=== PATIENT | female | born 1965 | race American Indian/Alaskan Native ===

== ENCOUNTER 2017-07-04 17:06 | Emergency (ER) | payer BC, OTHER ==
[~2017-07-04] VITALS: Ht 167.6 cm; Wt 107.5 kg
[~2017-07-04 17:06] MED LIST: ACTOPLUS MET X1 EACH PO; ALBUTEROL SULF8.5 GM INH; ALLEGRA ALLERG180 MG PO; CELEBREX200 MG PO; CLINDAMYCIN HC300 MG PO; FLONASE2 SPRAY NS; JANUMET 50-1,01 EACH PO; LANTUS100 UNITS/ SUB-Q; LISINOPRIL10 MG PO; MONTELUKAST SOD10 MG PO; NORCO 5-325 TA1 EACH PO; NOVOLOG FL100 UNIT/1 SUB-Q; ONE DAILY COMP1 EACH PO; PATANOL5 ML OU; PROMETHAZINE HC25 M1 PO; VITAMIN D350000 UNIT PO; ZOFRAN ODT8 MG SL
[2017-07-04] MEDS ORDERED: LEVAQUIN500 MG PO (18:13)
[2017-07-04] MEDS ORDERED: TAMIFLU75 MG PO (18:13)
[2017-07-04] MEDS ORDERED: ZOFRAN ODT4 MG PO (18:15)
[2017-07-04] MEDS ORDERED: PHENERGAN25 MG PO (19:05)
== END 2017-07-04 19:28 | disposition home or self-care (01) ==
LOC: ED 17:06
DX: J11.1 Influenza due to unidentified influenza virus with other respiratory manifestations (principal); J03.80 Acute tonsillitis due to other specified organisms; B96.89 Other specified bacterial agents as the cause of diseases classified elsewhere; I10 Essential (primary) hypertension; E11.9 Type 2 diabetes mellitus without complications; Z88.2 Allergy status to sulfonamides; Z88.0 Allergy status to penicillin; Z88.5 Allergy status to narcotic agent; Z88.8 Allergy status to other drugs, medicaments and biological substances; Z79.899 Other long term (current) drug therapy; Z79.4 Long term (current) use of insulin
CPT/HCPCS: 96374; 96375; 99283; J0696; J1200; J1885; J2060; J2405; J7030

== ENCOUNTER 2018-05-07 18:33 | Emergency (ER) | payer BC, OTHER ==
[~2018-05-07 18:33] MED LIST changes: +CALCIUM 600-VI1 EAC1 PO; +LEVAQUIN500 MG PO; +PATANOL5 ML OD; +PHENERGAN25 MG PO; +SINGULAIR10 MG PO; +TAMIFLU75 MG PO; +ZOFRAN ODT4 MG PO
== END 2018-05-07 22:22 | disposition home or self-care (01) ==
LOC: ED 18:33
DX: G43.909 Migraine, unspecified, not intractable, without status migrainosus (principal); I10 Essential (primary) hypertension; E11.9 Type 2 diabetes mellitus without complications; Z88.2 Allergy status to sulfonamides; Z88.0 Allergy status to penicillin; Z88.1 Allergy status to other antibiotic agents; Z91.040 Latex allergy status; Z88.5 Allergy status to narcotic agent; Z88.8 Allergy status to other drugs, medicaments and biological substances; Z79.4 Long term (current) use of insulin; Z79.899 Other long term (current) drug therapy
CPT/HCPCS: 96361; 96374; 96375; 99284-25; J1100; J1200; J1885; J2550; J2765; J7030

== ENCOUNTER 2018-07-11 07:25 | Day surgery (SDC) | payer BC, OTHER ==
[~2018-07-11] VITALS: Ht 167.6 cm; Wt 110.2 kg
--- NOTE | ~2018-07-11 | OR ---
[facility] [address] [place], [place] [address] Draft DATE OF OPERATION: 07/11/2018 SURGEON: Isaias Spears MD PREOPERATIVE DIAGNOSIS: Trigger thumb, right, severe. POSTOPERATIVE DIAGNOSIS: Trigger thumb, right, severe. PROCEDURE PERFORMED: Release of A1 jordana, right thumb. ANESTHESIA: Nguyễn block with generous sedation. SPECIMENS AND COMPLICATIONS: There were no specimens or complications. WHAT WAS DONE: The patient was taken to the operating room. After anesthesia was induced and the patient sedated, the right upper extremity was positioned, prepped, and draped in a routine sterile fashion. A transverse incision was made in the MCP flexion crease directly over the palpable nodule in the FPL tendon. Skin was divided sharply. Subcutaneous tissue was bluntly spread. Small Bhaktinell Quang retractors were placed medially and laterally to protect the digital neurovascular bundles. We then released the A1 jordana with the tip of a #15 blade and the thumb immediately extended completely. We then again used a Ragnell to make sure we completely decompressed the FPL and there was a full and unimpeded excursion of the FPL. The wound was gently irrigated, closed with 4-0 nylon, and the sterile dressing applied. The patient was awakened and taken to the recovery room where she arrived in stable condition. Counts were correct and antibiotic protocols were followed. Isaias Spears MD WFB/MODL PATIENT NAME: GUS SHRESTHA OPERATIVE REPORT DATE OF : 69 REPORT #: [id number] PHYSICIAN: ISAIAS SPEARS MD PCP: VICTORINO SOSA REPORT IS CONFIDENTIAL AND NOT TO BE RELEASED WITHOUT AUTHORIZATION [address] [place], [place] [address] Draft /[id number] Copies: ~ PATIENT NAME: GUS SHRESTHA OPERATIVE REPORT DATE OF : 69 REPORT #: [id number] PHYSICIAN: ISAIAS SPEARS MD PCP: VICTORINO SOSA REPORT IS CONFIDENTIAL AND NOT TO BE RELEASED WITHOUT AUTHORIZATION
--- NOTE | 2018-07-11 11:15 | NUR ---
07/11/18 1115 Marianna Christiansen 1058-PATIENT ARRIVED TO PACU ON 10L MASK PLACED ON 6L NONAROUSABLE. SHALLOW BREATHING. RN MAINTAINING AIRWAY WITH HOLDING JAW. BP UPPER 70 'S IV FLUSHED AND LR OPEN INFUSING IV POSITIONAL. RIGHT HAND DRESSING CDI ELEVATED ON PILLOW.
--- NOTE | 2018-07-11 11:57 | NUR ---
ICED WATER GIVEN. SOUP AND SANDWICH ORDERED FROM DIETARY. CALL LIGHT W/IN REACH. FAMILY @ BS.
--- NOTE | 2018-07-11 12:56 | NUR ---
PT CONT TO BE NAUSEATED. PT USING ALCOHOL SWAB UNDER NOSE AND HOLDING EMESIS BAG ON ARRIVAL TO PT RM. PT PROVIDED GINGERALE TO HELP CALM HER STOMACH PER PT REQUEST. PT CONT TO SAT ABOVE 94% ON RA. DENIES ANY PAIN AND STATES THAT RIGHT HAND IS STILL NUMB. PT FAMILY AT BEDSIDE. CALL LIGHT WITHIN REACH.
--- NOTE | 2018-07-11 14:17 | NUR ---
1300: THIS RN CONSULTS WITH SHANTELLE BENNETT FOR ORAL MEDICATION FOR NAUSEA. SEE EMAR. PT CONT TO USE ALCOHOL SWAB AND SIP GINGERALE. 1330: PT STATES SHE NO LONGER FEELS NAUSEATED BUT FEELS TIRED. PT DRESSES SELF WITH HELP FROM DAUGHTER. DC INSTRUCTIONS GIVEN IN PRESENCE OF PT AND DAUGHTER. ALL QUESTIONS ANSWERED. PT DC'S VIA HOME FROM [facility] RM 12.
== END 2018-07-11 13:40 | disposition home or self-care (01) ==
LOC: DS 07:25 → OPS 07:25 → DS 07:30 → OPS 09:45
PROVIDERS: Orthopaedic Surgery
PROC: 0LN70ZZ Release Right Hand Tendon, Open Approach (ICD-10-PCS; principal; 2018-07-11 09:45)
DX: M65.311 Trigger thumb, right thumb (principal); E11.9 Type 2 diabetes mellitus without complications; I10 Essential (primary) hypertension; G89.29 Other chronic pain; J45.909 Unspecified asthma, uncomplicated; Z88.0 Allergy status to penicillin; Z88.2 Allergy status to sulfonamides; Z88.5 Allergy status to narcotic agent; Z79.899 Other long term (current) drug therapy; Z87.891 Personal history of nicotine dependence
CPT/HCPCS: 01810; J1100; J1885; J2250; J2405; J2704; J2765; J3010; J3370; J7060; J7120

== ENCOUNTER 2018-07-20 10:44 | Emergency (ER) | payer BC, OTHER ==
[~2018-07-20] VITALS: Ht 167.6 cm; Wt 108.6 kg
--- OUTSIDE RECORDS SUMMARY | ~2018-07-20 | XMS | Encounter Summary ---
Demographics + + + | Address | [address] | | | [place] [address] | + + + | Home Phone | | + + + | Preferred Language | Unknown | + + + | Marital Status | | + + + | Caodaism Affiliation | 1041 | + + + | Race | Unknown | + + + | Ethnic Group | Unknown | + + + Author + + + | Author | [facility] | | | and Esteban | + + + | Organization | [facility] | | | and [place] | + + + | Address | Unknown | + + + | Phone | Unavailable | + + + Support + + +---------+ + | Name | Relationship | Address | Phone | + + +---------+ + | CATHI SCHWARTZ | ECON | Unknown | | + + +---------+ + Care Team Providers + +------+ + | Care Beef Grinder Name | Role | Phone | + [...] | Changes | ORTHOPEDIC SURGERY | I, Gis Specialist | | | | | [address] | | | | | | [place] | | | | | | [address] | | | | | | [phone] | | | +--------+ + + + [...] + +---------+ + | Alcohol Use | Drinks/We | oz/Week | Comments | | | ek | | | + + +---------+ + | No | | | | + + +---------+ + + + + | Sex Assigned at | Date Recorded | | | | + + + | Not on file | | + + + as of this encounter Plan of Treatment Not on fileas of this encounter Visit Diagnoses Not on filein this encounter"
--- OUTSIDE RECORDS SUMMARY | ~2018-07-20 | XMS | Clinical Summary ---
Demographics + + + | Address | [address] | | | [place] [address] | + + + | Home Phone | | + + + | Preferred Language | Unknown | + + + | Marital Status | | + + + | Worship Affiliation | 1041 | + + + | Race | Unknown | + + + | Ethnic Group | Unknown | + + + Author + + + | Author | [facility] | | | and Esteban | + + + | Organization | [facility] | | | and [...] Team Providers + +------+ + | Care Knitting Tester Name | Role | Phone | + +------+ + | Alejandro Yen DO | PP | | + +------+ + Allergies + + + + + + | Active Allergy | Reactions | Severity | Noted | Comments | | | | | Date | | + + + + + + | Cephalexin | Other (See Comments) | | 10/16/19 | Reaction not | | | | | 18 | specified in outside | | | | | | medical records | + + + + + + | Ciprofloxacin | Other (See Comments) | | 10/16/19 | Reaction not | | | | | 18 | specified in outside | | | | | | medical records | + + + + + + | Codeine | Other (See Comments) | | 10/16/19 | Reaction not | | | | | 18 | specified in outside | | | | | | medical records | + + + + + + | Latex | Other (See Comments) | | 10/16/19 | Reaction not | | | | | 18 | specified in outside | | | | | | medical records | + + + + + + | Penicillins | Other (See Comments) | | 10/16/19 | Reaction not | | | | | 18 | specified in outside | | | | | | medical records | + + + + + + | Sulfa Antibiotics | Other (See Comments) | | 10/16/19 | Reaction not | | | | | 18 | specified in outside | | | | | | medical records | + + + + + + Current Medications + + +-------+---------+------+------+-------+ | Prescription | Sig. | Disp. | Refills | Star | End | Statu | | | | | | t | Date | s | | | | | | Date | | | + + +-------+---------+------+------+-------+ | albuterol (PROAIR | Inhale 2 puffs into | | | | | Activ | | HFA) 90 mcg/puff | the lungs every 6 | | | | | e | | inhaler | hours as needed for | | | | | | | | Shortness of Breath. | | | | | | + + +-------+---------+------+------+-------+ | celecoxib | Take 200 mg by mouth | | | | | Activ | | (CELEBREX) 200 mg | Twice daily as | | | | | e | | capsule | needed for Pain | | | | | | | | (Arthritis). | | | | | | + + +-------+---------+------+------+-------+ | ergocalciferol | Take 50,000 Units by | | | | | Activ | | (VITAMIN D-2) 50,000 | mouth Once a week. | | | | | e | | units capsule | | | | | | | + + +-------+---------+------+------+-------+ | fexofenadine | Take 180 mg by mouth | | | | | Activ | | (RDAHA) 180 mg | Daily as needed for | | | | | e | | tablet | Allergies. | | | | | | + + +-------+---------+------+------+-------+ | insulin glargine | Inject 75 Units | | | | | Activ | | (LANTUS SOLOSTAR) | under the skin | | | | | e | | 100 units/mL | nightly. | | | | | | | injection (pen) | | | | | | | + + +-------+---------+------+------+-------+ | insulin aspart | Inject 10 Units | | | | | Activ | | (NOVOLOG) 100 | under the skin 3 | | | | | e | | units/mL injection | times daily (before | | | | | | | | meals). | | | | | | + + +-------+---------+------+------+-------+ | lisinopril | Take 10 mg by mouth | | | | | Activ | | (PRINIVIL, ZESTRIL) | Daily. | | | | | e | | 10 mg tablet | | | | | | | + + +-------+---------+------+------+-------+ | metaxalone | Take 800 mg by mouth | | | | | Activ | | (SKELAXIN) 800 mg | 4 times daily. | | | | | e | | tablet | | | | | | | + + +-------+---------+------+------+-------+ | montelukast | Take 10 mg by mouth | | | | | Activ | | (SINGULAIR) 10 mg | nightly. | | | | | e | | tablet | | | | | | | + + +-------+---------+------+------+-------+ | olopatadine | Place 1 drop into | | | | | Activ | | (PATANOL) 0.1% | both eyes 2 times | | | | | e | | ophthalmic solution | daily. | | | | | | + + +-------+---------+------+------+-------+ | ULTICARE ALCOHOL | | | | 12/3 | | Activ | | SWABS 70 % PADS | | | | 1/20 | | e | | | | | | 18 | | | + + +-------+---------+------+------+-------+ | fluticasone | | | | 11/2 | | Activ | | (FLONASE) 50 | | | | 7/20 | | e | | mcg/nasal spray | | | | 18 | | | + + +-------+---------+------+------+-------+ | TRUE METRIX BLOOD | | | | 12/3 | | Activ | | GLUCOSE TEST strip | | | | 1/20 | | e | | | | | | 18 | | | + + +-------+---------+------+------+-------+ | TRUEPLUS LANCETS | | | | 11/0 | | Activ | | 28G MISC | | | | 5/20 | | e | | | | | | 18 | | | + + +-------+---------+------+------+-------+ | B-D ULTRAFINE III | | | | 12/3 | | Activ | | SHORT PEN 31G X 8 MM | | | | 1/20 | | e | | | | | | 18 | | | + + +-------+---------+------+------+-------+ | NOVOLOG FLEXPEN | | | | 12/3 | | Activ | | 100 UNIT/ML | | | | 1/20 | | e | | injection pen | | | | 18 | | | + + +-------+---------+------+------+-------+ Active Problems + + + | Problem | Noted Date | + + + | Right carpal tunnel syndrome | 06/26/2018 | + + + | Trigger thumb of right hand | 06/26/2018 | + + + | Left carpal tunnel syndrome | 06/26/2018 | + + + Encounters +--------+ + + + + | Date | Type | Specialty | Care Team | Description | +--------+ + + + + | 07/03/ | Telephone | | Melchor Gerardo | Surgery Appointment | | 2019 | | | MD Ar | | +--------+ + + + + | 06/27/ | Episode | | Sarah Carpenter | | | 2018 | Changes | | Mary Brown | | +--------+ + + + + | 06/26/ | Office | | Melchor Gerardo | Right carpal tunnel | | 2018 | Visit | | MD Ar | syndrome (Primary | | | | | | Dx); Trigger thumb | | | | | | of right hand; Left | | | | | | carpal tunnel | | | | | | syndrome | +--------+ + + + + | 06/26/ | Episode | | Sarah Carpenter | | | 2018 | Changes | | Kevin Tapper Operator | | +--------+ + + + + | 05/15/ | Procedure | | Moises Spivey, | Bilateral carpal | | 2019 | visit | | MD | tunnel syndrome | | | | | | (Primary Dx); | | | | | | Bilateral hand | | | | | | numbness; Weakness | | | | | | of both hands; | | | | | | History of diabetes | | | | | | mellitus, type II | +--------+ + + + + from Last 3 Months Immunizations + + + + | Name | Dates Previously Given | Next Due | + + + + | HEP A, 2 DOSE | 03/02/2014, 08/06/2013 | | | (ADULT) | | | + + + + | HEP B, 3 DOSE | 11/15/1994, 03/20/1994, 02/15/1994 | | | (ADULT) | | | + + + + | INFLUENAZ PF | 05/02/2012 | | | TRIVALENT | | | | INTRADERMAL | | | + + + + | INFLUENZA PF | 01/21/2018, 02/08/2017, 12/22/2015 | | | QUAD(PED/ADOL/ADULT) | | | | ,PSKT or VIAL | | | + + + + | INFLUENZA PF | 02/18/2015 | | | TRIVALENT(PED/ADOL/A | | | | DULT), PSKT | | | + + + + | INFLUENZA QUADR | 01/21/2014 | | | W/PRES | | | | (PED/ADOL/ADULT) | | | | MULTIDOSE | | | + + + + | PNEUMOCOCCAL | 05/02/2012 | | | CONJUGATE 13-VALENT | | | | (PCV13) | | | + + + + | TDAP, (ADOL/ADULT) | 11/01/2011 | | + + + + Family History + + +------+ + | Medical History | Relation | Name | Comments | + + +------+ + | Diabetes | Brother | | | + + +------+ + | High blood pressure | Brother | | | + + +------+ + | Diabetes | Father | | | + + +------+ + | Hypertension | Father | | | + + +------+ + | Diabetes | Mother | | | + + +------+ + | Diabetes | Paternal | | | | | Grandfath | | | | | er | | | + + +------+ + | High blood pressure | Paternal | | | | | Grandfath | | | | | er | | | + + +------+ + + +------+--------+ + | Relation | Name | Status | Comments | + +------+--------+ + | Brother | | | | + +------+--------+ + | Father | | | | + +------+--------+ + | Mother | | | | + +------+--------+ + | Paternal Grandfather | | | | + +------+--------+ + Social History + +-------+ +--------+------+ | [...] on file | | + + + Last Filed Vital Signs + + + + | Vital Sign | Reading | Time Taken | + + + + | Blood Pressure | 118/78 | 05/15/20181427 PST | + + + + | Pulse | 103 | 05/15/20188 PST | + + + + | Temperature | - | - | + + + + | Respiratory Rate | - | - | + + + + | Oxygen Saturation | - | - | + + + + | Inhaled Oxygen | - | - | | Concentration | | | + + + + | Weight | 106.1 kg (234 lb) | 06/26/2018837 PST | + + + + | Height | 168.5 cm (5' 6.34") | 06/26/2018837 PST | + + + + | Body Mass Index | 37.38 | 06/26/2018837 PST | + + + + Plan of Treatment + + + + + | Health Maintenance | Due Date | Last Done | Comments | + + + + + | Cervical Cancer | | | | | Screening (Pap) | 8 | | | + + + + + | BREAST CANCER | | | | | SCREENING (MAMM Q2 | 8 | | | | YEARS 50-74) | | | | + + + + + | Colorectal Cancer | | | | | Screening | 8 | | | | (Colonoscopy) | | | | + + + + + | Vaccine: Zoster (1 | | | | | of 2) | 8 | | | + + + + + | Vaccine: | | 11/01/2011 | | | Dtap/Tdap/Td (2 - | 2 | | | | Td) | | | | + + + + + | Vaccine: Influenza | Completed | 01/21/2018, 02/08/2017, | | | | | 12/22/2015, Additional history | | | | | exists | | + + + + + Results Not on filefrom Last 3 Months Insurance + +--------+ +--------+-------+---------+ | Payer | Benefi | Subscriber | Type | Phone | Address | | | t Plan | ID | | | | | | / | | | | | | | Group | | | | | + +--------+ +--------+-------+---------+ | BCBS | BCBS | [id number] | PPO | | | | | FEDERA | | | | | | | L FEP | | | | | + +--------+ +--------+-------+---------+ | [employer] | [employer] | [id number] | Indemn | | | | SERVICE | YELLOW | | ity | | | | | [place] | | | | | + +--------+ +--------+-------+---------+ + +--------+ +--------+ + + | Guarantor Name | Accoun | Relation to | Date | Phone | Billing Address | | | t Type | Patient | of | | | | | | | | | | + +--------+ +--------+ + + | YADIRA DEAN | Person | Self [birth year] Home: | [address] | | [place] | al/[place] | | 1966 | [phone] [place] | | | [place] | | | [phone] | | + +--------+ +--------+ + +
--- OUTSIDE RECORDS SUMMARY | ~2018-07-20 | XMS | Encounter Summary ---
Demographics + + + | Address | [address] | | | [place] [address] | + + + | Home Phone | | + + + | Preferred Language | Unknown | + + + | Marital Status | | + + + | Latter Day Affiliation | 1041 | + + + | Race | Unknown | + + + | Ethnic Group | Unknown | + + + Author + + + | Author | [facility] | | | and Esteban | + + + | Organization | [facility] | | | [...] Team Providers + +------+ + | Care Environmental Services Floor Tech Name | Role | Phone | + [...] | Changes | ORTHOPEDIC SURGERY | I, Flooring Grader | | | | | [address] | | | | | | [place] | | | | | | [address] | | | | | | [phone] | | | +--------+ + + + [...]
--- OUTSIDE RECORDS SUMMARY | ~2018-07-20 | XMS | Encounter Summary ---
Demographics + + + | Address | [address] | | | [place] [address] | + + + | Home Phone | | + + + | Preferred Language | Unknown | + + + | Marital Status | | + + + | Church Affiliation | 1041 | + + + | Race | Unknown | + + + | Ethnic Group | Unknown | + + + Author + + + | Author | [facility] | | | and Esteban | + + + | Organization | [facility] | | | and [...] Team Providers + +------+ + | Care Professor Of Fine Art Name | Role | Phone | + +------+ + | Alejandro Yen DO | PCP | | + +------+ + Reason for Referral Evaluate & Treat (Routine) +--------+ + + [...] | | | | | tunnel | [address] | [place] | | | | | syndrome | [place], | [place] | | | | | Bilateral | [place] [address] | [address] Phone: | | | | | hand | Phone: | [phone] | | | | | numbness | [phone] | Fax: | | | | | Weakness of | Fax: | [phone] | | | | | both hands | [phone] | | +--------+ + + + + + Reason for Visit + + + | Reason | Comments | + + + | Procedure | BUE NCS | + + + Evaluate & Treat (Routine) +--------+ + + + + + | Status | Reason | Specialty | Diagnoses / | Referred By | Referred To | | | | | Procedures | Contact | Contact | +--------+ + + + + + | Closed | Specialty | Physical | Diagnoses | Patric, | Moises Spivey | | | Services | Medicine and | Bilateral | Moises Suarez MD | Bola Suarez MD [address] | | | Required | Rehabilitatio | hand | [address] | | | | n | numbness | [address] | [place], | | | | | Weakness of | [place], | [place] [address] | | | | | both hands | [place] [address] | Phone: | | | | | Cervicalgia | Phone: | [phone] | | | | | Procedures | [phone] | Fax: | | | | | [place] MOTOR | Fax: | [phone] | | | | | &/SENS 1-2 | [phone] | | | | | | NRV CNDJ | | | | | | | PRECONF | | | | | | | [place] | | | | | | | NV MOTOR | | | | | | | &/SENS 3-4 | | | | | | | NRV CNDJ | | | | | | | PRECONF | | | | | | | [place] | | | | | | | NV MOTOR | | | | | | | &/SENS 7-8 | | | | | | | NRV CNDJ | | | | | | | PRECONF | | | | | | | [place] | | | | | | | NV MOTOR | | | | | | | &/SENS 13/> | | | | | | | NRV CNDJ | | | | | | | PRECONF | | | | | | | [place]TR[place] LIMB | | | | | | | NV NEEDLE | | | | | | | EMG EA | | | | | | | EXTREMITY | | | | | | | W/PARASPINL | | | | | | | AREA LIMITED | | | | | | | NV EMG, | | | | | | | NEEDLE, ONE | | | | | | | LIMB NV | | | | | | | EMG, NEEDLE, | | | | | | | TWO LIMBS | | | | | | | NV NEEDLE | | | | | | | EMG EA | | | | | | | EXTREMTY | | | | | | | W/PARASPINL | | | | | | | AREA | | | | | | | COMPLETE NV | | | | | | | OFFICE | | | | | | | OUTPATIENT | | | | | | | VISIT 25 | | | | | | | MINUTES | | | | | | | 02/19 | | | | | | | Pending-YH | | | | | | | response; | | | | | | | DOS 03/20/18 | | | +--------+ + + + + + Encounter Details +--------+ + + + + | Date | Type | Department | Care Team | Description | +--------+ + + + + | 05/15/ | Procedure | [facility] | Moises Spivey, | Bilateral carpal | | 2019 | visit | PHYSIATRY [address] | MD [address] | tunnel syndrome | | | | [place], | [place], [place] | (Primary Dx); | | | | [place] [address] | [address] | Bilateral hand | | | | [phone] | | numbness; Weakness | | | | | | of both hands; | | | | | | History of diabetes | | | | | | mellitus, type II | +--------+ + + + + Social History + +-------+ +--------+------+ | Tobacco Use | Types | Packs/Day | Years | Date | | | | | Used | | + +-------+ +--------+------+ | Never Smoker | | | | | + [...] + + + as of this encounter Last Filed Vital Signs + +---------+ + | Vital Sign | Reading | Time Taken | + +---------+ + | Blood Pressure | 118/78 | 05/15/2018 1428 PST | + +---------+ + | Pulse | 103 | 05/15/2018 1428 PST | + +---------+ + | Temperature | - | - | + +---------+ + | Respiratory Rate | - | - | + +---------+ + | Oxygen Saturation | - | - | + +---------+ + | Inhaled Oxygen | - | - | | Concentration | | | + +---------+ + | Weight | - | - | + +---------+ + | Height | - | - | + +---------+ + | Body Mass Index | - | - | + +---------+ + in this encounter Instructions Patient Instructions - Moises Spivey MD - 05/15/2018 1400 PSTContinue wearing carpal gian angela wrist splints at night, only at night, every night. Orthopedic surgery consult has been requested to consider carpal tunnel release surgery. I f you haven't heard from the surgeon's office within 2 weeks, please let us know. If you have persisting symptoms after recovering from carpal tunnel surgery, return to the clinic for further evaluation of your neck.in this encounter Progress Notes Moises Spivey MD - 05/15/2018 1400 PSTFormatting of this note may be different from the original. [facility] Physical Medicine & Rehabilitation [address] [place] [address], [address] [place] [address] Test Date: 05/15/2018 Patient Name: Tamara Serrano : 1965 Physician: Moises Spivey MD (Jr.) MR #: [id number] Sex: Female Referring Physician: Alejandro Yen DO HISTORY: Tamara Serrano presents to the clinic for bilateral upper extremity electrodiagnos tic study. She reports intermittent hand numbness that started more than one year ago. She has history of diabetes. She reports neck pain but is uncertain if there is any correlation between her neck and hand symptoms. She reports numbness is strongest in the first, second , and third fingers bilaterally. She reports that the numbness is stronger in the right finney d compared to the left. She reports that numbness can occur at night waking her from sleep, but also can occur when using her hands. Her symptoms occur multiple times each day. She reports that her hand numbness can be reduced by shaking her hands. She reports that episod es of intermittent hand numbness last minutes, but not hours. She reports bilateral hand we akness. She reports loss of program dir strength. She reports dropping objects with both hands. She denies having implanted electronic device, such as a pacemaker. She denies taking blood thinning medications such as Coumadin. PHYSICAL EXAM: Tamara Serrano is in no acute distress. She is alert and oriented to person, plac e, time and situation. Her speech is normal. Her cranial nerves are grossly intact. There is no focal muscle atrophy in either upper extremity. Spurling's test is negative bilatera lly. Tinel's test is positive over the median nerves at both wrists. Phalen's test is posi tive bilaterally. Sensory exam demonstrates decreased sensation over median distribution of both hands, strongest over the second digits bilaterally. Motor exam demonstrates 4/5 hand program dir on the right compared to 4+/5 on the left. Motor exam demonstrates 5/5 shoulder abduc tion, biceps, triceps, wrist dorsiflexion and finger abduction bilaterally. Lhermitte's sig n was negative. Allen's sign negative bilaterally. Nerve Conduction Studies Anti Sensory Summary Table Site NR Peak (ms) Norm Peak (ms) O-P Amp (V) Norm O-P Amp Site1 Site2 Delta-0 (ms) Dist (cm) Kraig (m/s) Norm Kraig (m/s) Left Median Anti Sensory (2nd Digit) Wrist 5.6 <3.6 15.0 >10 Wrist 2nd Digit 4.4 14.0 32 >39 Elbow 10.2 6.8 Elbow Wrist 4.4 23.5 53 >48 Right Median Anti Sensory (2nd Digit) Wrist 6.4 <3.6 1.4 >10 Wrist 2nd Digit 5.3 14.0 26 >39 Elbow NR Elbow Wrist 0.0 >48 Left Radial Anti Sensory (Base 1st Digit) Wrist 2.4 <2.7 21.5 Wrist Base 1st Digit 1.9 10.0 53 Right Radial Anti Sensory (Base 1st Digit) Wrist 2.4 <2.7 23.4 Wrist Base 1st Digit 1.6 10.0 63 Left Ulnar Anti Sensory (5th Digit) Wrist 3.3 <3.7 26.4 >15.0 Wrist 5th Digit 2.7 14.0 52 >38 B Elbow 6.7 16.2 B Elbow Wrist 2.8 18.0 64 >47 A Elbow 7.9 12.9 A Elbow B Elbow 1.5 10.0 67 Right Ulnar Anti Sensory (5th Digit) Wrist 3.1 <3.7 33.1 >15.0 Wrist 5th Digit 2.4 14.0 58 >38 B Elbow 6.3 19.8 B Elbow Wrist 3.2 19.0 59 >47 A Elbow 7.6 8.8 A Elbow B Elbow 1.2 10.0 83 Motor Summary Table Site NR Onset (ms) Norm Onset (ms) O-P Amp (mV) Norm O-P Amp Site1 Site2 Delta-0 (ms) Dist (cm) Kraig (m/s) Norm Kraig (m/s) Left Median Motor (Abd Poll Brev) Wrist 6.5 <4.2 6.9 >5 Elbow Wrist 4.1 22.0 54 >50 Elbow 10.6 6.3 Axilla Elbow 2.5 10.2 41 Axilla 13.1 6.5 Right Median Motor (Abd Poll Brev) Wrist 6.6 <4.2 6.3 >5 Elbow Wrist 4.7 23.0 49 >50 Elbow 11.3 6.1 Axilla Elbow 1.6 8.0 50 Axilla 12.9 4.4 Left Ulnar Motor (Abd Dig Minimi) Wrist 3.2 <4.2 6.7 >3 B Elbow Wrist 3.6 20.0 56 >53 B Elbow 6.8 4.7 A Elbow B Elbow 1.6 10.0 62 >53 A Elbow 8.4 4.7 Right Ulnar Motor (Abd Dig Minimi) Wrist 3.0 <4.2 7.6 >3 B Elbow Wrist 3.3 19.0 58 >53 B Elbow 6.3 6.7 A Elbow B Elbow 1.7 10.0 59 >53 A Elbow 8.0 6.0 Comparison Summary Table Site NR Peak (ms) Norm Peak (ms) P-T Amp (V) Site1 Site2 Delta-P (ms) Norm Delta (ms) Left Median/Radial Dig I Comparison (Digit 1 - 10cm) Median 4.9 <2.9 11.9 Median Radial 2.4 <0.4 Radial 2.5 <2.8 11.2 Right Median/Radial Dig I Comparison (Digit 1 - 10cm) Median 5.8 <2.9 0.5 Median Radial 3.3 <0.4 Radial 2.5 <2.8 3.7 Left Median/Ulnar Dig IV Comparison (Digit 4 - 14cm) Median Wr 5.1 <3.3 2.7 Median Wr Ulnar Wr 1.9 <0.4 Ulnar Wr 3.2 <3.3 18.2 Right Median/Ulnar Dig IV Comparison (Digit 4 - 14cm) Median Wr NR <3.3 Median Wr Ulnar Wr <0.4 Ulnar Wr 2.9 <3.3 14.3 Left Median/Ulnar Palm Comparison (Wrist - 8cm) Median Palm 4.2 <2.5 17.6 Median Palm Ulnar Palm 2.1 <0.3 Ulnar Palm 2.1 <2.5 15.9 Right Median/Ulnar Palm Comparison (Wrist - 8cm) Median Palm 6.5 <2.5 8.9 Median Palm Ulnar Palm 4.4 <0.3 Ulnar Palm 2.1 <2.5 34.0 F Wave Studies NR F-Lat (ms) Lat Norm (ms) L-R F-Lat (ms) L-R Lat Norm Left Median (Mrkrs) (Abd Poll Brev) 31.74 <33 0.41 <2.2 Right Median (Mrkrs) (Abd Poll Brev) 32.15 <33 0.41 <2.2 Left Ulnar (Mrkrs) (Abd Dig Min) NR <36 <2.5 Right Ulnar (Mrkrs) (Abd Dig Min) 28.47 <36 <2.5 Nerve Conduction Studies Motor Left/Right Comparison Site L Lat (ms) R Lat (ms) L-R Lat (ms) L Amp (mV) R Amp (mV) L-R Amp (%) Site1 Site2 L Ve l (m/s) R Kraig (m/s) L-R Kraig (m/s) Median Motor (Abd Poll Brev) Wrist 6.5 6.6 0.1 6.9 6.3 8.7 Elbow Wrist 54 49 5 Elbow 10.6 11.3 0.7 6.3 6.1 3.2 Axilla Elbow 41 50 9 Axilla 13.1 12.9 0.2 6.5 4.4 32.3 Ulnar Motor (Abd Dig Minimi) Wrist 3.2 3.0 0.2 6.7 7.6 11.8 B Elbow Wrist 56 58 2 B Elbow 6.8 6.3 0.5 4.7 6.7 29.9 A Elbow B Elbow 62 59 3 A Elbow 8.4 8.0 0.4 4.7 6.0 21.7 Anti Sensory Left/Right Comparison Site L Lat (ms) R Lat (ms) L-R Lat (ms) L Amp (V) R Amp (V) L-R Amp (%) Site1 Site2 L Kraig (m/s) R Kraig (m/s) L-R Kraig (m/s) Median Anti Sensory (2nd Digit) Wrist 5.6 6.4 0.8 15.0 1.4 90.7 Wrist 2nd Digit 32 26 6 Elbow 10.2 6.8 Elbow Wrist 53 Radial Anti Sensory (Base 1st Digit) Wrist 2.4 2.4 0.0 21.5 23.4 8.1 Wrist Base 1st Digit 53 63 10 Ulnar Anti Sensory (5th Digit) Wrist 3.3 3.1 0.2 26.4 33.1 20.2 Wrist 5th Digit 52 58 6 B Elbow 6.7 6.3 0.4 16.2 19.8 18.2 B Elbow Wrist 64 59 5 A Elbow 7.9 7.6 0.3 12.9 8.8 31.8 A Elbow B Elbow 67 83 16 Comparison Left/Right Comparison Site L Lat (ms) R Lat (ms) L-R Lat (ms) L Amp (V) R Amp (V) L-R Amp (%) Median/Radial Dig I Comparison (Digit 1 - 10cm) Median 4.9 5.8 0.9 11.9 0.5 95.8 Radial 2.5 2.5 0.0 11.2 3.7 67.0 Median/Ulnar Dig IV Comparison (Digit 4 - 14cm) Median Wr 5.1 2.7 Ulnar Wr 3.2 2.9 0.3 18.2 14.3 21.4 Median/Ulnar Palm Comparison (Wrist - 8cm) Median Palm 4.2 6.5 2.3 17.6 8.9 49.4 Ulnar Palm 2.1 2.1 0.0 15.9 34.0 53.2 NCV FINDINGS: Evaluation of the Left median motor nerve showed prolonged distal onset laten cy. The Right median motor nerve showed prolonged distal onset latency and decreased conduc tion velocity (Elbow-Wrist). The Left median sensory nerve showed prolonged distal peak lat ency and decreased conduction velocity (Wrist-2nd Digit). The Right median sensory nerve sh owed no response (Elbow), prolonged distal peak latency, reduced amplitude, and decreased co nduction velocity (Wrist-2nd Digit). The Left median/radial (dig I) comparison and the Righ t median/radial (dig I) comparison nerves showed prolonged distal peak latency (Median) and abnormal peak latency difference (Median-Radial). The Left median/ulnar (dig IV) comparison nerve showed prolonged distal peak latency (Median Wr) and abnormal peak latency difference (Median Wr-Ulnar Wr). The Right median/ulnar (dig IV) comparison nerve showed no response (Median Wr). The Left median/ulnar (palm) comparison and the Right median/ulnar (palm) comp arison nerves showed prolonged distal peak latency (Median Palm) and abnormal peak latency d ifference (Median Palm-Ulnar Palm). All remaining nerves (as indicated in the following tab les) were within normal limits. F Wave studies indicate that the Left ulnar F wave has no response. All remaining F Wave l atencies were within normal limits. IMPRESSION: This is an abnormal study. Nerve conduction study of both upper extremities was abnormal. Nerve conduction study demo nstrates moderate median neuropathy at both wrists consistent with bilateral carpal tunnel s yndrome, worse on the right. There was no evidence of ulnar neuropathy in either upper extr emity. There was no evidence of radial neuropathy in either upper extremity. DISCUSSION: Tamara Serrano demonstrated normal tolerance to nerve conduction study of both upp er extremities. She was able to complete the entire study. As noted above, this study demonstrates moderate median neuropathy at both wrists consisten t with bilateral carpal tunnel syndrome. This study demonstrates adequate explanation for h er symptoms. Sequential bilateral carpal tunnel release is recommended. Orthopedic surgery consult has been requested to consider carpal tunnel release surgery. Today we reviewed the natural pro gression of carpal tunnel syndrome. She was instructed to wear carpal tunnel wrist splints at night, only at night, every night, never during the day. We discussed how to make sure t hey fit properly. We discussed that it is unlikely that splints would fix her problem, but it might help slow the progression of disease, while she waits for surgical release. We dis cussed the risk of permanent nerve damage if carpal tunnel syndrome remains untreated. We d iscussed the risk of permament pain, numbness, weakness, and disability if carpal tunnel pro gresses to "severe." Today we reviewed the association between carpal tunnel syndrome and d benjamin. Today's study cannot diagnose, nor rule out cervical radiculopathy. Electrodiagnostic stud y cannot diagnose, nor rule out cervical spinal stenosis. Tamara Serrano was instr ucted that if she has persisting symptoms after having carpal tunnel surgery and recovery, s he should return to my clinic for further evaluation. If she has persisting or worsening sy mptoms in the future, we may consider bilateral upper extremity EMG. We may also consider c ervical MRI to evaluate for neural foraminal narrowing and/or cervical spinal stenosis. Thank you for allowing me to be involved in the care of your patient. If you have any ques tions regarding the care of your patient please don't hesitate to call. Approximately 25 minutes was spent face to face with Tamara Serrano, beyond the co mpletion of the electrodiagnostic study above, over half of which was spent formulating and discussing their medical treatment plan. Thank you for allowing me to be involved in the care of your patient. If you have any quest ions or comments, please do not hesitate to call. Moises Spivey MD (.) Physical Medicine and Rehabilitation Cc: Alejandro Yen, DO in this encounter Plan of Treatment + +--------+ + + | Name | Priori | Associated Diagnoses | Order Schedule | | | ty | | | + +--------+ + + | * [facility] Orthopedic Surgery - | Routin | Bilateral carpal | Ordered: 05/15/2018 | | AMB Referral | e | tunnel syndrome | | | | | Bilateral hand | | | | | numbness Weakness | | | | | of both hands | | + +--------+ + + as of this encounter Visit Diagnoses + + | Diagnosis | + + | Bilateral carpal tunnel syndrome - Primary | + + | Carpal tunnel syndrome | + + | Bilateral hand numbness | + + | Disturbance of skin sensation | + + | Weakness of both hands | + + | History of diabetes mellitus, type II | + + | Personal history of other endocrine, metabolic, and immunity disorders | + +
--- OUTSIDE RECORDS SUMMARY | ~2018-07-20 | XMS | Encounter Summary ---
Demographics + + + | Address | [address] | | | [place] [address] | + + + | Home Phone | | + + + | Preferred Language | Unknown | + + + | Marital Status | | + + + | Anabaptist Affiliation | 1041 | + + + | Race | Unknown | + + + | Ethnic Group | Unknown | + + + Author + + + | Author | [facility] | | | and Esteban | + + + | Organization | [facility] | | | and [...] Team Providers + +------+ + | Care Bale Stacker Name | Role | Phone | + +------+ + | Alejandro Yen DO | PCP | | + +------+ + Encounter Details +--------+ + + + + | Date | Type | Department | Care Team | Description | +--------+ + + + + | 06/27/ | Episode | [facility] [place] | Sarah Carpenter | | | 2019 | Changes | ORTHOPEDIC SURGERY | I, Hvac Specialist | | | | | [address] | | | | | | [place] | | | | | | [address] | | | | | | [phone] | | | +--------+ + + + [...]
--- OUTSIDE RECORDS SUMMARY | ~2018-07-20 | XMS | Encounter Summary ---
Demographics + + + | Address | [address] | | | [place] [address] | + + + | Home Phone | | + + + | Preferred Language | Unknown | + + + | Marital Status | | + + + | Taoist Affiliation | 1041 | + + + | Race | Unknown | + + + | Ethnic Group | Unknown | + + + Author + + + | Author | [facility] | | | and Esteban | + + + | Organization | [facility] | | | [...] Team Providers + +------+ + | Care Inspector Structural Bonding Name | Role | Phone | + [...] | | | | | tunnel | [address] | [place] | | | | | syndrome | [place], | [place] | | | | | Bilateral | [place] [address] | [address] Phone: | | | | | hand | Phone: | [phone] | | | | | numbness | [phone] | Fax: | | | | | Weakness of | Fax: | [phone] | | | | | both hands | [phone] | | +--------+ + + + + + Encounter Details +--------+---------+ + + + | Date | Type | Department | Care Team | Description | +--------+---------+ + + + | 06/26/ | Office | [facility] | Melchor Gerardo | Right carpal tunnel | | 2019 | Visit | ORTHOPEDIC SURGERY | [address] | syndrome (Primary | | | | [address] | [address] [place] | Dx); Trigger thumb | | | | [place] | [place] [address] | of right hand; Left | | | | [address] | [phone] | carpal tunnel | | | | [phone] | | syndrome | +--------+---------+ + + [...] Blood Pressure | - | - | + + + + | Pulse | - | - | + + + + | Temperature [...] | 168.5 cm (5' 6.34") | 06/26/2018 08 PST | + + + + | Body Mass Index | 37.38 | 06/26/201838 PST | + + + + in this encounter Instructions Patient Instructions - Melchor Gerardo MD - 06/26/2018 0920 PST Carpal Tunnel Syndrome Carpal tunnel syndrome [...] not bent back when typing. You may [id number] pain medicine to treat pain and inflammation, [...] becomes swollen or weak Date Last Reviewed: 08/21/201719996080-6594 [employer]. [address] [place] [address]. All righ ts reserved. This information is not intended as a substitute for professional medical care. Always follow your healthcare professional's instructions. in this encounter Progress Notes Melchor Gerardo MD - 06/26/2018 0830 PSTFormatting of this note may be different from the original. [facility] HISTORY AND PHYSICAL EXAMINATION Pt. Name/Age/: Tamara Serrano 52 y.o. 1965 Primary Care Physician: Alejandro Yen Chief Complaint/Reason for Visit: New Patient and Carpal Tunnel (Bilateral hand numbness) History of Present Illness: The patient is a pleasant 52 y.o. female who presents with a lateral carpal tunnel syndrome . She reports that the right hand bothers her more than the left. She has had symptoms for at least a couple of years. She has intermittent numbness and tingling which largely affec ts the thumb index and middle fingers on both hands. She also reports that she has a trigge r thumb on the right hand. She has been having issues with that for the last year. She's b een having some difficulty with wind energy mechanic with regards to both hands. Rest and ice help with her pain. She is tried Celebrex. She has not done any physical therapy. She has been using b races with some relief. Her pain is a 5 out of 10 at baseline and a 7 out of 10 at its wors t. Her pain has been getting better over time. She is unable to do all her normal daily ac tivities. She quit smoking 30 years ago. Past [...] BLOOD GLUCOSE TEST strip TRUEPLUS LANCETS 28G [facility] ALCOHOL SWABS 70 % PADS No current facility-administered medications for this visit. Family History: Family History Problem Relation Age of Onset Diabetes Mother Diabetes Father Hypertension Father Diabetes Brother High blood pressure Brother Diabetes Paternal Grandfather High blood pressure Paternal Grandfather Social History: Social History Social History Marital status: Spouse name: CATHI SCHWARTZ Number of children: 4 Years of education: [...] how injection would probably have about a 30% chance success considering that she has a hist ory of diabetes. We discussed surgical treatment briefly. She is uninterested in treating that moment and wishes to deal with the carpal tunnel first. Follow-up: Return preoperative visit. with no x-ray Portions of this report were transcribed using voice recognition software. Every effort wa s made to ensure accuracy; however, inadvertent computerized bankruptcy legal assistant errors may be pre sent. I appreciate the opportunity to help with the management of this patient. Melchor Gerardo MDin this encounter Plan of Treatment Not on fileas of this encounter Visit Diagnoses + + | Diagnosis | + + | Right carpal tunnel syndrome - Primary | + + | Carpal tunnel syndrome | + + | Trigger thumb of right hand | + + | Trigger finger (acquired) | + + | Left carpal tunnel syndrome | + + | Carpal tunnel syndrome | + +
--- OUTSIDE RECORDS SUMMARY | ~2018-07-20 | XMS | Encounter Summary ---
Demographics + + + | Address | [address] | | | [place] [address] | + + + | Home Phone | | + + + | Preferred Language | Unknown | + + + | Marital Status | | + + + | Taoism Affiliation | 1041 | + + + | Race | Unknown | + + + | Ethnic Group | Unknown | + + + Author + + + | Author | [facility] | | | and Esteban | + + + | Organization | [facility] | | [...] Team Providers + +------+ + | Care Machine Setter Name | Role | Phone | + +------+ + | Alejandro Yen DO | PCP | | + +------+ + Reason for Visit + + + | Reason | Comments | + + + | Surgery Appointment | | + + + Encounter Details +--------+ + + + + | Date | Type | Department | Care Team | Description | +--------+ + + + + | 07/03/ | Telephone | [facility] | AkinMelchor hayden | Surgery Appointment | | 2019 | | ORTHOPEDIC SURGERY | [address] | | | | | [address] [facility] | [facility] | | | | | [place] | [place] [address] | | | | | [address] | [phone] | | | | | [phone] | | | +--------+ + + + [...]
--- OUTSIDE RECORDS SUMMARY | ~2018-07-20 | XMS | Encounter Summary ---
Demographics + + + | Address | [address] | | | [place] [address] | + + + | Home Phone | | + + + | Preferred Language | Unknown | + + + | Marital Status | | + + + | Lutheran Affiliation | 1041 | + + + [...] Team Providers + +------+ + | Care Outdoor Advertising Leasing Agent Name | Role | Phone | + [...] + + | 07/03/ | Telephone | [facility] | AkinMelchor hayden | Surgery Appointment | | 2019 | | ORTHOPEDIC SURGERY | [address] | | | | | [address] [facility] | [facility] | | | | | [place] | [place] [address] | | | | | [address] | [phone] | | | | | [phone] | | | +--------+ + + + [...]
--- OUTSIDE RECORDS SUMMARY | ~2018-07-20 | XMS | Encounter Summary ---
Demographics + + + | Address | [address] | | | [place] [address] | + + + | Home Phone | | + + + | Preferred Language | Unknown | + + + | Marital Status | | + + + | Evangelical Affiliation | 1041 | + + + | Race | Unknown | + + + | Ethnic Group | Unknown | + + + Author + + + | Author | [facility] | | | and Esteban | + + + | Organization | [facility] | | | [...] Team Providers + +------+ + | Care House Coordinator Name | Role | Phone | + [...] | | | | | tunnel | [address] | [address] [place] | | | | | syndrome | [place], | [place], [place] | | | | | Bilateral | [place] [address] | [address] Phone: | | | | | hand | Phone: | [phone] | | | | | numbness | [phone] | Fax: | | | | | Weakness of | Fax: | [phone] | | | | | both hands | [phone] | | +--------+ + + + + [...] | hand | [address] | | | | n | numbness | [address] | [place], | | | | | Weakness of | [place], | [place] [address] | | | | | both hands | [place] [address] | Phone: | | | | | Cervicalgia | Phone: | [phone] | | | | | Procedures | [phone] | Fax: | | | | | [place] MOTOR | Fax: | [phone] | | | | | &/SENS 1-2 | [phone] | | | | | | NRV CNDJ | | | | | | | PRECONF | | | | | | | [place] | | | | | | | [place] MOTOR | | | | | | | &/SENS 3-4 | | | | | | | NRV CNDJ | | | | | | | PRECONF | | | | | | | [place] | | | | | | | MN MOTOR | | | | | | | &/SENS 7-8 | | | | | | | NRV CNDJ | | | | | | | PRECONF | | | | | | | [place] | | | | | | | MN MOTOR | | | | | | | &/SENS 13/> | | | | | | | NRV CNDJ | | | | | | | PRECONF | | | | | | | [place] LIMB | | | | | | | MN NEEDLE | | | | | | | EMG EA | | | | | | | EXTREMITY | | | | | | | W/PARASPINL | | | | | | | AREA LIMITED | | | | | | | MN EMG, | | | | | | | NEEDLE, ONE | | | | | | | LIMB [place] | | | | | | | EMG, NEEDLE, | | | | | | | TWO LIMBS | | | | | | | MN NEEDLE | | | | | | | EMG EA | | | | | | | EXTREMTY | | | | | | | W/PARASPINL | | | | | | | AREA | | | | | | | COMPLETE [place] | | | | | | | [...] PHYSIATRY [address] | MD [address] | tunnel syndrome | | | | [address] [place], | [place], [place] | (Primary Dx); | | | | [place] [address] | [address] | Bilateral hand | | | | [phone] | | numbness; Weakness | | | [...] note may be different from the original. [facility] Physical Medicine & Rehabilitation [address] [place] [address], [address] [place] [address] Test Date: 05/15/2018 Patient Name: Tamara Serrano : 1965 Physician: Moises Spivey MD (Jr.) MR #: [id number] Sex: Female Referring Physician: Alejandro Yen DO [...] hand we akness. 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 She reports dropping objects with both [...] digits bilaterally. 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
--- OUTSIDE RECORDS SUMMARY | ~2018-07-20 | XMS | Encounter Summary ---
Demographics + + + | Address | [address] | | | [place] [address] | + + + | Home Phone | | + + + | Preferred Language | Unknown | + + + | Marital Status | | + + + | Taoist Affiliation | 1041 | + + + | Race | Unknown | + + + | Ethnic Group | Unknown | + + + Author + + + | Author | [facility] | | | and Esteban | + + + | Organization | [facility] | | | [...] Team Providers + +------+ + | Care Title One Kindergarten Teacher Name | Role | Phone | + [...] | Changes | ORTHOPEDIC SURGERY | I, Potato Chip Processing Supervisor | | | | | [address] | | | | | | [place] | | | | | | [address] | | | | | | [phone] | | | +--------+ + + + [...]
--- OUTSIDE RECORDS SUMMARY | ~2018-07-20 | XMS | Clinical Summary ---
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
--- OUTSIDE RECORDS SUMMARY | ~2018-07-20 | XMS | Encounter Summary ---
Demographics + + + | Address | [address] | | | [place] [address] | + + + | Home Phone | | + + + | Preferred Language | Unknown | + + + | Marital Status | | + + + | Jain Affiliation | 1041 | + + + | Race | Unknown | + + + | Ethnic Group | Unknown | + + + Author + + + | Author | [facility] | | | and Esteban | + + + | Organization | [facility] | | | [...] Team Providers + +------+ + | Care Tank Inspector Name | Role | Phone | [...] | | | | | tunnel | [address] | [place] | | | | | syndrome | [place], | [place], [place] | | | | | Bilateral | [place] [address] | [address] Phone: | | | | | hand | Phone: | [phone] | | | | | numbness | [phone] | Fax: | | | | | Weakness of | Fax: | [phone] | | | | | both hands | [phone] | | +--------+ + + + + + Encounter Details +--------+---------+ + + + | Date | Type | Department | Care Team | Description | +--------+---------+ + + + | 06/26/ | Office | [facility] | Melchor Gerardo | Right carpal tunnel | | 2019 | Visit | ORTHOPEDIC SURGERY | MD [address] | syndrome (Primary | | | | [address] | [address] [place] | Dx); Trigger thumb | | | | [place] | [place] [address] | of right hand; Left | | | | [address] | [phone] | carpal tunnel | | | | [phone] | | syndrome | +--------+---------+ + + [...] not bent back when typing. You may cpkacxb-qlq-tljnteh pain medicine to treat pain and inflammation, [...] becomes swollen or weak Date Last Reviewed: 08/21/201719994918-6692 [employer]. [address] [place] [address]. All righ ts reserved. This information is not intended as a substitute for professional medical care. Always follow your healthcare professional's instructions. in this encounter Progress Notes eMlchor Gerardo MD - 06/26/2018 0830 PSTFormatting of this note may be different from the original. 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 Rest and [...] BLOOD GLUCOSE TEST strip TRUEPLUS LANCETS 28G [facility] SWABS 70 % [...] No imaging Electrodiagnostic testing performed by Dr. Spivye on 05/15/2018 reviewed. She has moderate c [...] made to ensure accuracy; however, inadvertent computerized sprinkler truck driver errors may be pre sent. I appreciate [...]
[2018-07-20] MEDS ORDERED: CLEOCIN HCL300 MG PO (11:01)
== END 2018-07-20 11:10 | disposition home or self-care (01) ==
LOC: ED 10:44
DX: T81.41XA Infection following a procedure, superficial incisional surgical site, initial encounter (principal); G43.909 Migraine, unspecified, not intractable, without status migrainosus; I10 Essential (primary) hypertension; E11.9 Type 2 diabetes mellitus without complications; Z87.891 Personal history of nicotine dependence; Z91.040 Latex allergy status; Z88.2 Allergy status to sulfonamides; Z88.0 Allergy status to penicillin; Z88.5 Allergy status to narcotic agent; Z79.899 Other long term (current) drug therapy; Z79.4 Long term (current) use of insulin
CPT/HCPCS: 99282

== ENCOUNTER 2019-01-10 17:18 | Emergency (ER) | payer BC, OTHER ==
[~2019-01-10] VITALS: Ht 167.6 cm; Wt 103.0 kg
[~2019-01-10 17:18] MED LIST changes: +CLEOCIN HCL300 MG PO; +FLONASE ALLERG9.9 ML NAS; +SYMBICORT 16010.2 GM INH; +ZITHROMAX250 MG PO
== END 2019-01-10 19:23 | disposition home or self-care (01) ==
LOC: ED 17:18
DX: J06.9 Acute upper respiratory infection, unspecified (principal); I10 Essential (primary) hypertension; E11.9 Type 2 diabetes mellitus without complications; Z88.0 Allergy status to penicillin; Z88.1 Allergy status to other antibiotic agents; Z88.2 Allergy status to sulfonamides; Z91.040 Latex allergy status; Z88.8 Allergy status to other drugs, medicaments and biological substances; Z79.899 Other long term (current) drug therapy
CPT/HCPCS: 99283

== ENCOUNTER 2019-02-25 06:35 | Day surgery (SDC) | payer BC, OTHER ==
[~2019-02-25] VITALS: Ht 167.6 cm; Wt 105.2 kg
[~2019-02-25 06:35] MED LIST changes: +LANTUS SOL100 UNIT/1 SUB-Q
--- NOTE | 2019-02-25 08:16 | NUR ---
02/25/19 0816 Nima,Juana 0808 PT ARRIVED TO PACU ON 3L VIA NC RESP EVEN AND UNLABORED. PT LAYING ON LEFT SIDE. 0809 PT WOKE TO TACTILE STIMULI AND IS REORIENTED TO PACU, PT TRUNED TO BACK AND VSS. PT BACK TO SLEEP. CBG 263.
--- NOTE | 2019-02-25 08:56 | OR ---
[facility] [address], [place] [address] Signed DATE OF OPERATION: 02/25/2019 SURGEON: Osvaldo Hurtado MD PREOPERATIVE DIAGNOSES: 1. Rectal lymphoma (2018). 2. External hemorrhoids. 3. Sigmoid diverticulum x1. POSTOPERATIVE DIAGNOSES: 1. Mild juarez-diverticulosis. 2. Minimal internal and external hemorrhoids. 3. A 3 mm rectal polyp at 10 cm next to previous polypectomy site. PROCEDURE: Colonoscopy with hot biopsy. ESTIMATED BLOOD LOSS: None. INDICATIONS: Gus is a 53-year-old, obese, diabetic female, who had a tiny rectal lymphoma removed in November 2017 during her endoscopy. She underwent a full evaluation with her medical oncologist. Everything came out negative including a CT scan of the chest, abdomen and pelvis. Her bone marrow biopsy was also negative. Consequently, she did not need any chemotherapy. She was asked to return by her medical oncologist this year for a followup colonoscopy. We know she has minimal external hemorrhoids and a single diverticulum had been seen in the sigmoid colon. She tells me there is no family history of colon cancer or polyps. In the meantime, she has no lower GI complaints. I reviewed with Gus a colonoscopy in detail. She understands the nature of the test along with the risks including, but not limited to gas, bloating, crampy abdominal pain, bleeding, perforation requiring surgery, and missed diagnosis. She also understands the need for IV conscious sedation. She expressed understanding and wished to proceed. PROCEDURE NOTE: Gus was taken into our endoscopy suite and placed in the left lateral decubitus position. She was given Versed and fentanyl for sedation. A digital rectal exam was performed and she has very minimal external hemorrhoids. She has good sphincter tone. No masses. The adult colonoscope was introduced and advanced all around into the cecum under direct visualization of camera without difficulty. It took a little extra Electronically Signed By: OSVALDO HURTADO MD 02/25/19 0856 PATIENT NAME: GUS SHRESTHA OPERATIVE REPORT DATE OF : [birth year] REPORT #: [id number] PHYSICIAN: OSVALDO HURTADO MD PCP: VICTORINO SOSA REPORT IS CONFIDENTIAL AND NOT TO BE RELEASED WITHOUT AUTHORIZATION [facility] [address], [place] [address] Signed sedation and some abdominal compression in order to advance the scope around hepatic flexure and down the right colon. Her prep was quite good. The scope was slowly withdrawn. We took pictures throughout for photodocumentation. She did have a few diverticula in the right and left colon. They were wdypqhn-qi-qhfeszya in size, few in number, and scattered about. We found just a very tiny 3 mm polypoid lesion a couple of centimeters to the side of the previous polypectomy site at about 10 cm in the rectum. It was easily removed with the help of cold biopsy forceps. It was bleeding just a little, so we went ahead and cauterized that with our hot biopsy forceps. Upon retroflexion of the scope, she has very minimal internal hemorrhoid tissue. After this, the gas was suctioned out and the colonoscope removed. Gus tolerated the procedure quite well. RECOMMENDATIONS: I will see Gus back in my office in 7 to 14 days to review her results. I suspect this small biopsy will be fine. In that case, she might consider return in 3 years for repeat colonoscopy. Osvaldo Hurtado MD ALB/MODL /[id number] cc: RAFAELA Fishman MD Robert C Quackenbush, MD Copies: OSVALDO HURTADO MD, ROBERT C MD ~ Electronically Signed By: OSVALDO HURTADO MD 02/25/19 0856 PATIENT NAME: GUS SHRESTHA OPERATIVE REPORT DATE OF : [birth year] REPORT #: [id number] PHYSICIAN: OSVALDO HURTADO MD PCP: VICTORINO SOSA REPORT IS CONFIDENTIAL AND NOT TO BE RELEASED WITHOUT AUTHORIZATION
--- NOTE | 2019-03-03 16:36 | PATH ---
[facility] [address] [facility] [place], [place] [address] Signed SPECIMEN(S): A COLON POLYP AT 10 CM SPECIMEN SOURCE: A. COLON POLYP AT 10 CM CLINICAL HISTORY: Rectal lymphoma, external hemorrhoids, sigmoid diverticulosis. MICROSCOPIC DESCRIPTION: Histologic sections colonic mucosa with lamina propria and submucosa, patchy lymphoid infiltrate, composed predominantly of small lymphoid cells admixed with a few histiocytes, and plasma cells. No dysplasia or carcinoma is identified. Immunohistochemical stains performed on block A1 with adequate controls: - CD3: Stains a few scattered and focally clustered small T-cells. - CD5: Stains a few scattered and focally clustered small T-cells. - CD20: Highlights aggregated B-cells. Additional immunohistochemical stains performed on block A1 with adequate controls: - PAX5: Highlights aggregated B-cells. - CD138: Stains a few plasma cells. In situ hybridization performed on block A1 with adequate controls: - [place]: Positive in subset plasma cells, with a polytypic pattern. - Lambda: Positive in subset plasma cells. LY:glc FINAL PATHOLOGIC DIAGNOSIS: Polyp, colon at 25 cm, polypectomy: - Hyperplastic polyp. - No evidence of lymphoma, dysplasia or carcinoma. - See Comment. 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 The current colon polyp at 25 cm shows colonic mucosa with hyperplastic change and lamina propria and submucosa with patchy lymphoid infiltrate. Additional immunohistochemical stains reveal mixed T-cells, B-cells and polytypic plasma cells. There is no evidence of lymphoma identified. Clinical correlation is recommended. LY:glc:C2NR PATIENT NAME: GUS SHRESTHA PATHOLOGY DATE OF : [birth year] REPORT #: [id number] PHYSICIAN: INESSA SAAVEDRA PCP: VICTORINO SOSA REPORT IS CONFIDENTIAL AND NOT TO BE RELEASED WITHOUT AUTHORIZATION [facility] [address] [place], [place] [address] Signed GROSS DESCRIPTION: The specimen, labeled "KM, colon polyp at 10 cm," is received in formalin and consists of three tipton soft tissue fragment(s) that measure 0.2-0.3 cm in greatest dimension. The specimen is entirely submitted in cassette (A1). FB (under the direct supervision of a pathologist) The Gross Description was prepared using a voice recognition system. The report was reviewed for accuracy; however, sound-alike word errors, addition and/or deletions may occur. If there is any question about this report, please contact Client Services. ADDITIONAL NOTES: Immunohistochemical and/or in situ hybridization studies were performed on this case with the appropriate positive controls that react as expected. This test was developed and its performance characteristics determined by [facility]. It has not been cleared or approved by the U.S. Food and Drug Administration. The FDA has determined that such clearance or approval is not necessary. This test is used for clinical purposes. It should not be regarded as investigational or for research. [facility] is certified under the Clinical Laboratory Improvement Amendments of 1988 (CLIA) as qualified to perform high complexity clinical laboratory testing. PERFORMING LABORATORY: The technical component was performed by [facility], [address] [place] [id number] (Field Marketing Team Leader: Ella Kaufman MD; CLIA# [id number]). Professional interpretation was performed by [facility], [facility], [address] [place] [address] (Field Marketing Team Leader: Sebas Haddad M.D.; IA#: [id number]). Diagnostician: Alex Montoya MD Pathologist Electronically Signed 03/03/2019 Copies: ~ PATIENT NAME: GUS SHRESTHA PATHOLOGY DATE OF : 69 REPORT #: [id number] PHYSICIAN: INESSA PATHOLOGY PCP: VICTORINO SOSA REPORT IS CONFIDENTIAL AND NOT TO BE RELEASED WITHOUT AUTHORIZATION
== END 2019-02-25 08:50 | disposition home or self-care (01) ==
LOC: DS 06:35 → OPS 06:35 → DS 06:45 → OPS 06:45
PROVIDERS: Colon & Rectal Surgery
PROC: 0DBP8ZZ Excision of Rectum, Via Natural or Artificial Opening Endoscopic (ICD-10-PCS; principal; 2019-02-25 06:45)
DX: K62.1 Rectal polyp (principal); K64.8 Other hemorrhoids; K64.4 Residual hemorrhoidal skin tags; K57.30 Diverticulosis of large intestine without perforation or abscess without bleeding; I10 Essential (primary) hypertension; J45.909 Unspecified asthma, uncomplicated; E78.5 Hyperlipidemia, unspecified; E55.9 Vitamin D deficiency, unspecified; E11.9 Type 2 diabetes mellitus without complications; E66.9 Obesity, unspecified; M17.0 Bilateral primary osteoarthritis of knee; M19.011 Primary osteoarthritis, right shoulder; M19.012 Primary osteoarthritis, left shoulder; M19.041 Primary osteoarthritis, right hand; M19.042 Primary osteoarthritis, left hand; Z85.72 Personal history of non-Hodgkin lymphomas; Z88.1 Allergy status to other antibiotic agents; Z98.890 Other specified postprocedural states; Z88.5 Allergy status to narcotic agent; Z91.040 Latex allergy status; Z88.2 Allergy status to sulfonamides; Z88.0 Allergy status to penicillin; Z79.4 Long term (current) use of insulin; Z79.899 Other long term (current) drug therapy
CPT/HCPCS: 99153; G0500; J2250; J3010; J7121

== ENCOUNTER → 2019-10-15 | Emergency (ER) | payer BC, OTHER ==
[~2019-10-15] VITALS: Ht 167.6 cm; Wt 105.2 kg
--- OUTSIDE RECORDS SUMMARY | ~2019-10-15 | XMS | Encounter Summary ---
Demographics + + + | Address | [address] | | | [place] [address] | + + + | Home Phone | | + + + | Preferred Language | Unknown | + + + | Marital Status | | + + + | Sikhism Affiliation | 1041 | + + + | Race | Unknown | + + + | Ethnic Group | Unknown | + + + Author + + + | Author | [facility] | | | and [place]eb[place] | + + + | Organization | [facility] | | | and [place] | + + + | Address | Unknown | + + + | Phone | Unavailable | + + + Support + + +---------+ + | Name | Relationship | Address | Phone | + + +---------+ + | Cathi Omalley | [place] | Unknown | | + + +---------+ + Care Team Providers + +------+ + | Care Conventional Mortgage Underwriter Name | Role | Phone | + +------+ + | Alejandro Yen DO | PCP | | + +------+ + Reason for Visit + + + | Reason | Comments | + + + | New Patient | | + + + | Carpal Tunnel | Bilateral hand numbness | + + + Evaluate & Treat (Routine) +--------+ + + + + + | Status | Reason | Specialty | Diagnoses / | Referred By | Referred To | | | | | Procedures | Contact | Contact | +--------+ + + + + + | Closed | Specialty | Orthopedic | Diagnoses | Patric, | Foreign, | | | Services | Surgery | Bilateral | Moises Suarez MD | Gavino Staley MD | | | Required | | carpal | [address] | | | | | tunnel | [address] | [address] [place] | | | | | syndrome | [place], | [place], [place] | | | | | Bilateral | [place] [address] | [address] Phone: | | | | | hand | Phone: | [phone] | | | | | numbness | [phone] | Fax: | | | | | Weakness of | Fax: | [phone] | | | | | both hands | [phone] | | +--------+ + + + + + Encounter Details +--------+---------+ + + + | Date | Type | Department | Care Team | Description | +--------+---------+ + + + | 06/26/ | Office | [facility] | Melchor eGrardo | Right carpal tunnel | | 2019 | Visit | ORTHOPEDIC SURGERY | [address] | syndrome (Primary | | | | [address] [place] | [place] | Dx); Trigger thumb | | | | [address] | [place] [address] | of right hand; Left | | | | [id number] | [phone] | carpal tunnel | | | | [phone] | | syndrome | +--------+---------+ + + + Social History + +-------+ +--------+------+ | Tobacco Use | Types | Packs/Day | Years | Date | | | | | Used | | + +-------+ +--------+------+ | Former Smoker | | | | | + +-------+ +--------+------+ + +---+---+---+ | Smokeless Tobacco: | | | | | Never Used | | | | + +---+---+---+ + + +---------+ + | Alcohol Use | Drinks/Week | oz/Week | Comments | + + +---------+ + | No | | | | + + +---------+ + + + + | Sex Assigned at | Date Recorded | | | | + + + | Not on file | | + + + documented as of this encounter Last Filed Vital Signs + + + + + | Vital Sign | Reading | Time Taken | Comments | + + + + + | Blood Pressure | - | - | | + + + + + | Pulse | - | - | | + + + + + | Temperature | - | - | | + + + + + | Respiratory Rate | - | - | | + + + + + | Oxygen Saturation | - | - | | + + + + + | Inhaled Oxygen | - | - | | | Concentration | | | | + + + + + | Weight | 106.1 kg (234 lb) | 06/26/2018 8:38 AM | | | | | PST | | + + + + + | Height | 168.5 cm (5' 6.34") | 06/26/2018 8:38 AM | | | | | PST | | + + + + + | Body Mass Index | 37.38 | 06/26/2018 8:38 AM | | | | | PST | | + + + + + documented in this encounter Patient Instructions Patient Instructions Melchor Gerardo MD - 06/26/2018 9:20 AM PST Carpal Tunnel Syndrome Carpal tunnel syndrome is a painful condition of the wrist and arm. It is caused by pressur e on the median nerve. The median nerve is one of the nerves that give feeling and movement to the hand. It passes through a tunnel in the wrist called the carpal tunnel. This tunnel i s made up of bones and ligaments. Narrowing of this tunnel or swelling of the tissues inside the tunnel puts pressure on the median nerve. This causes numbness, pins and needles, or el ectric shooting pains in your hand and forearm. Often the pain is worse at night and may wak e you when you are asleep. Carpal tunnel syndrome may occur during and with use of control pills. It i s more common in workers who must often bend their wrists. It is also common in people who w ork with power tools that cause strong vibrations. Home care Rest the painful wrist. Avoid repeated bending of the wrist back and forth. This puts pr essure on the median nerve. Avoid using power tools with strong vibrations. If you were given a splint, wear it at night while you sleep. You may also wear it durin g the day for comfort. Move your fingers and wrists often to prevent stiffness. Elevate your arms on pillows when you lie down. Try using the unaffected hand more. Try not to hold your wrists in a bent, downward position. Sometimes changes in the work place may ease symptoms. If you type most of the day, it m ay help to change the position of your keyboard or add a wrist support. Your wrist should be in a neutral position and not bent back when typing. You may [id number]-irllidv pain medicine to treat pain and inflammation, unless anoth er medicine was prescribed.Anti-inflammatory pain medicines, such as ibuprofen or naproxen may be more effective than acetaminophen, which treats pain, but not inflammation.If you have chronic liver or kidney disease or ever had a stomach ulcer or gastrointestinal bleedin g, talk with your healthcare provider before using these medicines. Opioid pain medicine will only give temporary relief and does not treat the problem. If pain continues, you may need a shot of a steroid drug into your wrist. If the above methods fail, you may need surgery. This will open the carpal tunnel and re lease the pressure on the trapped nerve. Follow-up care Follow up with your healthcare provider, oras advised. If X-rays were taken,you will be notified of any new findings that may affect your care. When to seek medical advice Call your healthcare provider right away if any of these occur: Pain not improving with the above treatment Fingers or hand become cold, blue, numb, or tingly Your whole arm becomes swollen or weak Date Last Reviewed: 08/21/[id number] [employer]. [address] [place] [address], [place] [address]. All righ ts reserved. This information is not intended as a substitute for professional medical care. Always follow your healthcare professional's instructions. documented in this encounter Progress Notes Melchor Gerardo MD - 06/26/2018 8:30 AM PSTFormatting of this note might be dif ferent from the original. [facility] HISTORY AND PHYSICAL EXAMINATION Pt. Name/Age/: Tamara Serrano 52 y.o. 1965 Primary Care Physician: Alejandro Yen Chief Complaint/Reason for Visit: New Patient and Carpal Tunnel (Bilateral hand numbness) History of Present Illness: The patient is a pleasant 52 y.o. female who presents with a diagnosis of bilateral carpal tunnel syndrome. She reports that the right hand bothers her more than the left hand does. She has had symptoms for at least a couple of years in both hands. She has intermittent nu mbness and tingling which largely affects the thumb, index, and middle fingers on both hands . She also reports that she has a trigger thumb on the right hand. She has been having iss ues with that for the last year. 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 Rest and ice help with her pain. She has tried Celebrex. She has not done any physical therapy. She has been using braces with some relief. Her pain is a 5 out of 10 at baselin e and a 7 out of 10 at its worst. Her pain has been getting better over time. She is unabl e to do all her normal daily activities. She quit smoking 30 years ago. Past Medical History: Past Medical History: Diagnosis Date Abnormal liver function Acute bacterial sinusitis Acute dermatitis Acute lymphangitis Right periauricular Acute maxillary sinusitis Allergic rhinitis Asthma Benign essential hypertension Bronchitis Chronic thoracic back pain Contracture of muscle of left foot Intrinsic Hammer toe of left foot Hemorrhoids Ingrowing nail with infection Juvenile osteochondritis Right leg/foot Low back pain Lower urinary tract infectious disease Menopausal symptom Mixed hyperlipidemia Neuropathy Obesity Onychomycosis Osteoarthritis of left knee Rectal hemorrhage Scapulalgia Steatosis of liver Tenosynovitis Tension type headache Type 2 diabetes mellitus (HCC) Vitamin D deficiency Past Surgical History: Procedure Laterality Date KNEE SURGERY Bilateral Allergies: Allergies Allergen Reactions Cephalexin Other (See Comments) Reaction not specified in outside medical records Ciprofloxacin Other (See Comments) Reaction not specified in outside medical records Codeine Other (See Comments) Reaction not specified in outside medical records Latex Other (See Comments) Reaction not specified in outside medical records Penicillins Other (See Comments) Reaction not specified in outside medical records Sulfa Antibiotics Other (See Comments) Reaction not specified in outside medical records Current Medications: Current Outpatient Prescriptions Medication Sig Dispense Refill albuterol (PROAIR HFA) 90 mcg/puff inhaler Inhale 2 puffs into the lungs every 6 hours as needed for Shortness of Breath. B-D ULTRAFINE III SHORT PEN 31G X 8 MM celecoxib (CELEBREX) 200 mg capsule Take 200 mg by mouth Twice daily as needed for Asif n (Arthritis). ergocalciferol (VITAMIN D-2) 50,000 units capsule Take 50,000 Units by mouth Once a wee k. fexofenadine (RADHA) 180 mg tablet Take 180 mg by mouth Daily as needed for Allergies . fluticasone (FLONASE) 50 mcg/nasal spray insulin aspart (NOVOLOG) 100 units/mL injection Inject 10 Units under the skin 3 times daily (before meals). insulin glargine (LANTUS SOLOSTAR) 100 units/mL injection (pen) Inject 75 Units under t he skin nightly. lisinopril (PRINIVIL, ZESTRIL) 10 mg tablet Take 10 mg by mouth Daily. metaxalone (SKELAXIN) 800 mg tablet Take 800 mg by mouth 4 times daily. montelukast (SINGULAIR) 10 mg tablet Take 10 mg by mouth nightly. NOVOLOG FLEXPEN 100 UNIT/ML injection pen olopatadine (PATANOL) 0.1% ophthalmic solution Place 1 drop into both eyes 2 times trent y. TRUE METRIX BLOOD GLUCOSE TEST strip TRUEPLUS LANCETS 28G MIS ULTICARE ALCOHOL SWABS 70 % PADS No current facility-administered medications for this visit. Family History: Family History Problem Relation Age of Onset Diabetes Mother Diabetes Father Hypertension Father Diabetes Brother High blood pressure Brother Diabetes Paternal Grandfather High blood pressure Paternal Grandfather Social History: Social History Social History Marital status: Spouse name: CATHI OMALLEY Number of children: 4 Years of education: N/A Occupational History [employer] Social History Main Topics Smoking status: Former Smoker Smokeless tobacco: Never Used Alcohol use No Drug use: No Sexual activity: Yes Other Topics Concern Not on file Social History Narrative No narrative on file Review of Systems All of these are negative unless otherwise marked Eyes: [] Double vision [x] Glasses/contacts [] Failing vision Respiratory: [] Asthma/Wheezing [] Pneumonia [] Night sweats [] Shortness of breath [] Chronic cough [] Coughing up blood [x] Exposure to tuberculosis Cardiovascular: [] Heart Problems [x] Hypertension [] Heart murmur [] Palpitations [] Rheumatic fever [] Phlebitis [] Chest pain [] Ankle swelling [] Leg cramps [] Racin g heart [] Skipping beats [] Blood clots Urinary Tract: [] Painful urination [] Kidney Stones [x] Any urine leakage [] Weak urine stream [] Night urination [] Urine infections [] Bedwetting [] Blood in urine Ear/Nose/Throat: [] Frequent Colds [] Sinus Disease [] Nose obstruction [] Sneezing Spells [] Change in taste [] Artificial teeth [] Ears ringing [] Ear pain [] Hearing loss [] Teeth problems [] Hoarseness [] Neck swelling [] Sore throat [] Congestion [] Nosebleeds [x] Nasal allergies Gastrointestinal: [] Abdominal pain [] Heartburn [] Blood from rectum [] Colitis [x] Gallbladder problems [] Troub le swallowing [] Bloated stomach [] Change in stools [] Vomiting blood [] Nausea [x] Hemorrhoids [] Jaundice [] Hepatitis [] Diarrhea [] Constipation [] Diverticulitis Musculoskeletal: [] Physical handicaps [x] Back or shoulder pain []Rheumatoid disease [] Osteoarthritis [x] Joint pain [] Joint swelling []Gout [x] Leg cramps at night Skin: [] Skin rashes [] Itching/Burning [] Skin bruises easil y [] Artificial tanning [] Skin cancer [] Hair loss [] Changes in moles Psychiatric: [] Depression [] Suicidal thoughts [] Sleep pattern changes [] Appetite changes [] Recent counseling [] Nervousness/anxiety [] Physical violence [] Marital problems Neurological: [] Headaches [] Seizures [] Stroke/TIA [] Faintness [] Tremors [] Numbness [] Dizziness [] Changes in handwriting [] Memory loss [] Shooting pains Endocrine: [] Thyroid [x] Diabetes Systemic: []Weight loss/gain (over 10 lbs) []Fever/chills [x]Fatigue [] Sleeping Difficulties [] Speech change [] Voice change Admission Weight: Weight: 106.1 kg (234 lb) BMI: Body mass index is 37.38 kg/m. Physical Examination: Ht 1.685 m (5' 6.34") | Wt 106.1 kg (234 lb) | BMI 37.38 kg/m General: Alert, oriented, no acute distress HEENT: Normocephalic, atraumatic Cardiovascular: Regular rate and rhythm Respiratory: Breathing normally at a regular rate Ortho Exam bilateral upper extremity exam: Radial pulse 2+. Sensation intact to light touch in the first dorsal webspace, and the pads of the small and index fingers. Able to flex and extend the thumb at the interphalangeal alana int, make an "ok" sign, adduct and abduct the fingers, and oppose the thumb to the small fin beny. Negative Tinel's at the carpal tunnel both sides. Positive Alyx's compression test on marina th sides. Tender over the right thumb A1 jordana. She is unable to fully extend her right t humb at the interphalangeal joint. No thenar eminence wasting noted on either hand. Diagnostic Studies: Imaging No imaging Electrodiagnostic testing performed by Dr. Spivey on 05/15/2018 reviewed. She has moderate c arpal tunnel syndrome bilaterally. This was based on nerve conduction velocities. Labs- No results found for: NA, K, CL, CO2, ANIONGAP, GLU, BUN, CREA, GFRNONAA, CALCIUM, ALBUMIN, BILITOT, TOTALPROTEIN, AST, ALT, ALKPHOS, WBC, HGB, HCT, MCV, LABPLAT, PLT, ESR, CRP, LIPAS E, AMYLASE, PT, INR Assessment and Plan: 1. Right carpal tunnel syndrome Case request: Right Carpal Tunnel Release; Right 2. Trigger thumb of right hand 3. Left carpal tunnel syndrome The patient is a pleasant 52 y.o. female who presents with bilateral carpal tunnel syndrome and a right trigger thumb. Treatment options were discussed with the patient including non- operative treatment modalities. Considering the nature of the patient's condition, decision was made to proceed with right open carpal tunnel release under local anesthesia. The patient has a clinical history and examination consistent with bilateral carpal tunnel syndrome. The right side is more painful for the patient. The patient has intermittent numbn ess and tingling in both hands. The risks, benefits and alternatives to surgery were discuss ed with the patient. The rationale for surgery was explained, as was the procedure and post- operative course. Risks including injury to the median nerve, pillar pain, and wound healing issues were discussed. The importance of avoiding pushing on the palm and avoiding heavy li fting were discussed. The patient wished to proceed with surgery. All questions were answere d. We will plan on performing a right open carpal tunnel release under local anesthesia. I'l l plan on seeing the patient back for a pre-operative visit to answer any other questions. With regards to the trigger thumb, she wished to defer that for another day. We discussed how injection would probably have about a lower chance of success compared to many patients considering that she has a history of diabetes. We discussed surgical treatment of trigger thumb briefly. She is uninterested in treating that moment and wishes to deal with the carp al tunnel first. Follow-up: Return preoperative visit. with no x-ray Portions of this report were transcribed using voice recognition software. Every effort wa s made to ensure accuracy; however, inadvertent computerized trainer errors may be pre sent. I appreciate the opportunity to help with the management of this patient. Melchor Gerardo MD documented in this encounter Plan of Treatment Not on filedocumented as of this encounter Visit Diagnoses + + | Diagnosis | + + | Right carpal tunnel syndrome - Primary Carpal tunnel syndrome | + + | Trigger thumb of right hand Trigger finger (acquired) | + + | Left carpal tunnel syndrome Carpal tunnel syndrome | + + documented in this encounter
--- OUTSIDE RECORDS SUMMARY | ~2019-10-15 | XMS | Encounter Summary ---
Demographics + + + | Address | [address] | | | [place] [address] | + + + | Home Phone | | + + + | Preferred Language | Unknown | + + + | Marital Status | | + + + | [employer] Affiliation | 1041 | + + + | Race | Unknown | + + + | Ethnic Group | Unknown | + + + Author + + + | Author | [facility] | | | and [place] | + + + | Organization | [facility] | | | and [place] | + + + | Address | Unknown | + + + | Phone | Unavailable | + + + Support + + +---------+ + | Name | Relationship | Address | Phone | + + +---------+ + | Frida Omalley | [place] | Unknown | | + + +---------+ + Care Team Providers + +------+ + | Care Showroom Manager Name | Role | Phone | + +------+ + | Alejandro Yen DO | PCP | | + +------+ + Encounter Details +--------+ + + + + | Date | Type | Department | Care Team | Description | +--------+ + + + + | 06/26/ | Episode | [facility] [place] | Sarah Carpenter | | | 2019 | Changes | ORTHOPEDIC SURGERY | I, Holiday Detector Operator | | | | | [address] | | | | | | [place] | | | | | | [address] | | | | | | [phone] | | | +--------+ + + + + Social History + +-------+ [...] + + documented as of this encounter Plan of Treatment Not on filedocumented as of this encounter Visit Diagnoses Not on filedocumented in this encounter"
--- OUTSIDE RECORDS SUMMARY | ~2019-10-15 | XMS | Encounter Summary ---
Demographics + + + | Address | [address] | | | [place] [address] | + + + | Home Phone | | + + + | Preferred Language | Unknown | + + + | Marital Status | | + + + | Gnosticist Affiliation | 1041 | + + + | Race | Unknown | + + + | Ethnic Group | Unknown | + + + Author + + + | Author | [facility] | | | and Esteban | + + + | Organization | [facility] | | | [...] Team Providers + +------+ + | Care Corporate Human Resources Manager Name | Role | Phone | + +------+ + | Alejandro Yen DO | PCP | | + +------+ + Encounter Details +--------+ + + + + | Date | Type | Department | Care Team | Description | +--------+ + + + + | 08/08/ | Hospital | [facility] | Melchor Gerardo | Right carpal tunnel | | 2019 | Encounter | [facility] | [address] | syndrome; Pre-op | | | | [address] [place] | [address] | exam; Asthma, | | | | [place], [place] | [place] [address] | unspecified asthma | | | | [address] | [phone] | severity, | | | | [phone] | | unspecified whether | | | | | | complicated, | | | | | | unspecified whether | | | | | | persistent | +--------+ + + + + Social [...] + + documented as of this encounter Medications at Time of Discharge + + + +---------+ + + | Medication | Sig | Dispensed | Refills | Start | End Date | | | | | | Date | | + + + +---------+ + + | albuterol (PROAIR | Inhale 2 puffs into | | 0 | | | | HFA) 90 mcg/puff | the lungs every 6 | | | | | | inhaler | hours as needed for | | | | | | | Shortness of Breath. | | | | | + + + +---------+ + + | B-D ULTRAFINE III | | | 0 | 04/22/20 | | | SHORT PEN 31G X 8 MM | | | | 18 | | + + + +---------+ + + | celecoxib | Take 200 mg by mouth | | 0 | | | | (CELEBREX) 200 mg | Twice daily as | | | | | | capsule | needed for Pain | | | | | | | (Arthritis). | | | | | + + + +---------+ + + | clindamycin | take 1 capsule by | | 0 | 07/21/19 | | | (CLEOCIN) 300 MG | mouth four times a | | | 19 | | | capsule | day | | | | | + + + +---------+ + + | ergocalciferol | Take 50,000 Units by | | 0 | | | | (VITAMIN D-2) 50,000 | mouth Once a week. | | | | | | units capsule | | | | | | + + + +---------+ + + | fexofenadine | Take 180 mg by mouth | | 0 | | | | (RADHA) 180 mg | Daily as needed for | | | | | | tablet | Allergies. | | | | | + + + +---------+ + + | fluconazole | take 1 tablet by | | 0 | 07/21/19 | | | (DIFLUCAN) 150 mg | mouth as a single | | | 19 | | | tablet | dose | | | | | + + + +---------+ + + | fluticasone | | | 0 | 03/19/20 | | | (FLONASE) 50 | | | | 18 | | | mcg/nasal spray | | | | | | + + + +---------+ + + | | Take 1-2 tablets by | 20 | 0 | 08/10/19 | | | HYDROcodone-acetamin | mouth every 4 hours | tablet | | 19 | | | ophen (NORCO) 5-325 | as needed for Pain. | | | | | | mg per tablet | | | | | | + + + +---------+ + + | insulin aspart | Inject 30 Units | | 0 | | | | (NOVOLOG) 100 | under the skin 3 | | | | | | units/mL injection | times daily (before | | | | | | | meals). | | | | | + + + +---------+ + + | insulin glargine | Inject 75 Units | | 0 | | | | (LANTUS SOLOSTAR) | under the skin | | | | | | 100 units/mL | nightly. | | | | | | injection (pen) | | | | | | + + + +---------+ + + | lisinopril | Take 10 mg by mouth | | 0 | | | | (PRINIVIL, ZESTRIL) | Daily. | | | | | | 10 mg tablet | | | | | | + + + +---------+ + + | metaxalone | Take 800 mg by mouth | | 0 | | | | (SKELAXIN) 800 mg | 4 times daily. | | | | | | tablet | | | | | | + + + +---------+ + + | montelukast | Take 10 mg by mouth | | 0 | | | | (SINGULAIR) 10 mg | nightly. | | | | | | tablet | | | | | | + + + +---------+ + + | NOVOLOG FLEXPEN | | | 0 | 04/22/20 | | | 100 UNIT/ML | | | | 18 | | | injection pen | | | | | | + + + +---------+ + + | olopatadine | Place 1 drop into | | 0 | | | | (PATANOL) 0.1% | both eyes 2 times | | | | | | ophthalmic solution | daily. | | | | | + + + +---------+ + + | TRUE METRIX BLOOD | | | 0 | 04/22/20 | | | GLUCOSE TEST strip | | | | 18 | | + + + +---------+ + + | TRUEPLUS LANCETS | | | 0 | 02/26/20 | | | 28G MISC | | | | 18 | | + + + +---------+ + + | ULTICARE ALCOHOL | | | 0 | 04/22/20 | | | SWABS 70 % PADS | | | | 18 | | + + + +---------+ + + documented as of this encounter Plan of Treatment Not on filedocumented as of this encounter Procedures + +--------+ + + + | Procedure Name | Priori | Date/Time | Associated Diagnosis | Comments | | | ty | | | | + +--------+ + + + | XR CHEST PA AND | Routin | 08/08/2018 | Right carpal | Results for this | | LATERAL | e | 4:28 PM | tunnel syndrome | procedure are in the | | | | PDT | Pre-op exam Asthma, | results section. | | | | | unspecified asthma | | | | | | severity, | | | | | | unspecified whether | | | | | | complicated, | | | | | | unspecified whether | | | | | | persistent | | + +--------+ + + + documented in this encounter Results XR Chest PA and Lateral (08/08/2018 4:28 PM PDT) + + | Specimen | + + | | + + + + + | Narrative | Performed At | + + + | PA AND LATERAL CHEST 08/08/2018 4:28 PM CLINICAL HISTORY: PRE-OP | [facility] | | TESTING COMPARISON: None available FINDINGS: The | | | cardiomediastinal silhouette and pulmonary vasculature are | | | unremarkable. The lungs are clear, without visible pneumothorax or | | | pleural effusion allowing for incomplete imaging of the right | | | costophrenic angle. Cholecystectomy clips are suggested. The bones | | | and soft tissues are otherwise unremarkable. IMPRESSION - | | | 1. NO RADIOGRAPHIC EVIDENCE OF ACTIVE DISEASE IN THE CHEST. | | | Dictated and Signed by: Niles Khanna MD Electronically signed: | | | 08/08/2018 10:57 PM | | + + + + + | Procedure Note | + + | Sadiq, Giovanny Results In - 08/08/2018 11:01 PM PDT PA AND LATERAL CHEST 08/08/2018 4:28 PM | | | | CLINICAL HISTORY: PRE-OP TESTING | | | | COMPARISON: None available | | | | FINDINGS: The cardiomediastinal silhouette and pulmonary vasculature are | | unremarkable. The lungs are clear, without visible pneumothorax or pleural | | effusion allowing for incomplete imaging of the right costophrenic angle. | | Cholecystectomy clips are suggested. The bones and soft tissues are otherwise | | unremarkable. | | | | IMPRESSION - | | | | 1. NO RADIOGRAPHIC EVIDENCE OF ACTIVE DISEASE IN THE CHEST. | | | | Dictated and Signed by: Niles Khanna MD | | Electronically signed: 08/08/2018 10:57 PM | + + + +---------+ + + | Performing | Address | City/State/Zipcode | Phone Number | | Organization | | | | + +---------+ + + | [facility] | | | | + +---------+ + + documented in this encounter Visit Diagnoses + + | Diagnosis | + + | Right carpal tunnel syndrome Carpal tunnel syndrome | + + | Pre-op exam Preoperative examination, unspecified | + + | Asthma, unspecified asthma severity, unspecified whether complicated, unspecified | | whether persistent | + + documented in this encounter"
--- OUTSIDE RECORDS SUMMARY | ~2019-10-15 | XMS | Encounter Summary ---
Demographics + + + | Address | [address] | | | [place] [address] | + + + | Home Phone | | + + + | Preferred Language | Unknown | + + + | Marital Status | | + + + | Alevism Affiliation | 1041 | + + + | Race | Unknown | + + + | Ethnic Group | Unknown | + + + Author + + + | Author | [facility] | | | and [place]eb[place] | + + + | Organization | [facility] | | | and [...] Team Providers + +------+ + | Care Senior Product Marketing Manager Name | Role | Phone | + +------+ + | Alejandro Yen DO | PCP | | + +------+ + Reason for Visit + + + | Reason | Comments | + + + | Follow-up, Office | GelOne injection | | Visit | | + + + | Knee Pain | Left | + + + Service/Procedure (Routine) +--------+--------+ + + + + | Status | Reason | Specialty | Diagnoses / | Referred By | Referred To | | | | | Procedures | Contact | Contact | +--------+--------+ + + + + | Closed | | Orthopedic | Diagnoses | Akin, | Akin, | | | | Surgery | Unilateral | Melchor | Melchor | | | | | primary | Ar, | MD Ar | | | | | osteoarthrit | [address] | | | | | is, left | [address] | [address] [place] | | | | | knee | [place], | [place], [place] | | | | | Procedures | [place] | [address] | | | | | [place] | [address] | Phone: | | | | | [place] | Phone: | [phone] | | | | | ARTHROCENTES | [phone] | Fax: | | | | | IS | Fax: | [phone] | | | | | ASPIR&/INJ | [phone] | | | | | | MAJOR | | | | | | | JT/TRACE W/O | | | | | | | US | | | +--------+--------+ + + + + Encounter Details +--------+---------+ + + + | Date | Type | Department | Care Team | Description | +--------+---------+ + + + | 02/13/ | Office | [facility] | Melchor Gerardo | Post-traumatic | | 2019 | Visit | ORTHOPEDIC SURGERY | MD [address] | osteoarthritis of | | | | [address] | [address] [place] | left knee (Primary | | | | [place], [place] | [place] [address] | Dx) | | | | [address] | [phone] | | | | | [phone] | | | +--------+---------+ + + + Social History [...] + + + + | Weight | 108 kg (238 lb 1.6 | 02/13/2019 2:39 PM | | | | oz) | PDT | | + + + + + | Height | 167.6 cm (5' 6") | 02/13/2019 2:39 PM | | | | | PDT | | + + + + + | Body Mass Index | 38.43 | 02/13/2019 2:39 PM | | | | | PDT | | + + + + + documented in this encounter Patient Instructions Patient Instructions Melchor Gerardo MD - 02/13/2019 2:45 PM PDTFormatting of t his note might be different from the original. Osteoarthritis: Injections and Surgery Talk with your healthcare provider about your treatment options. Injections or surgery may help if you have pain or movement problems that severely limit yo ur activities. Your healthcare provider can tell you more about these treatment choices and their risks and complications. Injections Medicine can be injected directly into the affected joint. These shots take a few minutes a nd are done in your healthcare provider s office: Corticosteroid or steroidinjections may ease swelling and pain. The medicine is inject ed into the joint for example, the knee or hip. Steroid injections do have risks, so healt hcare providers limit the number of injections used in any one joint. Lubricant supplementation injections use hyaluronic acid, a substance similar to one fou nd naturally in the joint. It may help the joint work more smoothly. These injections are on ly for osteoarthritis in the knees. Surgery Choices for surgery include: Arthroscopy.The surgeon looks at and works inside the joint using special tiny tools put through very small incisions. The cartilage is smoothed. Any pieces of cartilage that kimball ve broken off are removed. Total joint replacement. The entire joint is taken out and replaced with a manmade joint using metal, ceramic, or plastic. This is most often done with the knee or hip joint. Other surgery. There are other surgical procedures specific to certain joints. For sophie banuelos, joint resurfacing may be done on the hip joint. Date Last Reviewed: 09/21/201719997058-2502 [employer]. [address] [place] [address]. All righ ts reserved. This information is not intended as a substitute for professional medical care. Always follow your healthcare professional's instructions. documented in this encounter Progress Notes Melchor Gerardo MD - 02/13/2019 2:45 PM PDTShe presents today for a gel 1 injec tion. She previously has had multiple steroid injections. Believes she may have had some k ind of hyaluronic acid injection in the past but it is possible that is not the case. Her p ain is a 6 out of 10 at baseline and a 7 out of 10 at its worst. We put in for approval for the injection her last visit and she presents today for the injection. The skin is intact over her left knee. Her old incision is clean, dry, and intact and well -healed. 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 She has previously had steroid injections wit hout significant relief. We will see how she does with that today. Risks, benefits and alternatives to injection were discussed with the patient. All of the p juan f's questions were answered regarding the procedure. Consent was obtained. The patient agreed to undergo an injection of the Left knee. The area was prepared sterilely using Betad ine. A cold spray was used to numb the skin. Vale gel one was injected in the standard fas hion. This was well tolerated by the patient. We will have her follow-up as neededElectronically signed by MD rachel Perry 02/13/2019 4:16 PM PDTdocumented in this encounter Plan of Treatment Not on filedocumented as of this encounter Visit Diagnoses + + | Diagnosis | + + | Post-traumatic osteoarthritis of left knee - Primary Secondary localized | | osteoarthrosis, lower leg | + + documented in this encounter Administered Medications + +--------+ +-------+------+ + | Medication Order | MAR | Action | Dose | Rate | Site | | | Action | Date | | | | + +--------+ +-------+------+ + | cross-linked hyaluronate | Given | 02/14/20 | 30 mg | | Knee-Lef | | (GEL-ONE) 30 mg/3 mL injection 30 | | 19 2:40 | | | t | | mg 30 mg, Intra-articular, | | PM PDT | | | | | ONCE, [facility] 02/13/19 at 1645, For 1 | | | | | | | dose | | | | | | + +--------+ +-------+------+ + +---+---+ | | | +---+---+ documented in this encounter
--- OUTSIDE RECORDS SUMMARY | ~2019-10-15 | XMS | Encounter Summary ---
Demographics + + + | Address | [address] | | | [place] [address] | + + + | Home Phone | | + + + | Preferred Language | Unknown | + + + | Marital Status | | + + + | Sabianism Affiliation | 1041 | + + + | Race | Unknown | + + + | Ethnic Group | Unknown | + + + Author + + + | Author | [facility] | | | and Esteban | + + + | Organization | [facility] | | [...] Team Providers + +------+ + | Care Oncology Radiation Physician Name | Role | Phone | + +------+ + | Alejandro Yen DO | PCP | | + +------+ + Encounter Details +--------+ + + + + | Date | Type | Department | Care Team | Description | +--------+ + + + + | 07/29/ | Episode | [facility] [place] | Sarah Carpenter | | | 2019 | Changes | ORTHOPEDIC SURGERY | I, Family Independence Case Manager | | | | | [address] | | | | | | [place] | | | | | | [address] | | | | | | [phone] | | | +--------+ + + + [...]
--- OUTSIDE RECORDS SUMMARY | ~2019-10-15 | XMS | Encounter Summary ---
Demographics + + + | Address | [address] | | | [place] [address] | + + + | Home Phone | | + + + | Preferred Language | Unknown | + + + | Marital Status | | + + + | Judaism Affiliation | 1041 | + + + | Race | Unknown | + + + | Ethnic Group | Unknown | + + + Author + + + | Author | [facility] | | | and [place]eban | + + + | Organization | [facility] | | | [...] Team Providers + +------+ + | Care Textile Bag Sewer Name | Role | Phone | + +------+ + | Alejandro Yen DO | PCP | | + +------+ + Reason for Visit + +--------+ + | Reason | Onset | Comments | | | Date | | + +--------+ + | Surgery Appointment | 07/03/ | | | | 2018 | | + +--------+ + Encounter Details +--------+ + + + + | Date | Type | Department | Care Team | Description | +--------+ + + + + | 07/03/ | Telephone | [facility] | Melchor Gerardo | Surgery Appointment | | 2019 | | ORTHOPEDIC SURGERY | [address] | | | | | [address] | [address] [facility] | | | | | [place] | [place] [address] | | | | | [address] | [phone] | | | | | [phone] | | | +--------+ + + + [...] + + documented as of this encounter Miscellaneous Notes Telephone Encounter - Sarah Carpenter I Documentation Consultant - 07/31/2018 3:15 PM MAKSIM got in contact with Britney and she would like to get surgery on 08-09-2018. elephone Encounter - Sarah Carpenter I Documentation Consultant - 07/19/2018 11:08 AM PDTCalled and left a detailed message alfredo or Britney to return my call to discuss surgery dates. elephone Encounter - Sarah Carpenter I [facility] Valuation Manager - 07/03/2018 11:27 AM PDTCalled and left a message for Tamara delong to return my call. Need to discuss surgery dates. documented in this encounter Plan of Treatment Not on filedocumented as of this encounter Visit Diagnoses Not on filedocumented in this encounter"
--- OUTSIDE RECORDS SUMMARY | ~2019-10-15 | XMS | Encounter Summary ---
Demographics + + + | Address | [address] | | | [place] [address] | + + + | Home Phone | | + + + | Preferred Language | Unknown | + + + | Marital Status | | + + + | Baptist Affiliation | 1041 | + + + | Race | Unknown | + + + | Ethnic Group | Unknown | + + + Author + + + | Author | [facility] | | | and Esteban | + + + | Organization | [facility] | | | [...] Team Providers + +------+ + | Care Art Instructor Name | Role | Phone | + [...] | Changes | ORTHOPEDIC SURGERY | I, Ceo | | | | | [address] | | | | | | [place] | | | | | | [address] | | | | | | [phone] | | | +--------+ + + + [...]
--- OUTSIDE RECORDS SUMMARY | ~2019-10-15 | XMS | Encounter Summary ---
Demographics + + + | Address | [address] | | | [place] [address] | + + + | Home Phone | | + + + | Preferred Language | Unknown | + + + | Marital Status | | + + + | Buddhist Affiliation | 1041 | + + + | Race | Unknown | + + + | Ethnic Group | Unknown | + + + Author + + + | Author | [facility] | | | and Esteban | + + + | Organization | [facility] | | | [...] Team Providers + +------+ + | Care Director Of Cardiology Service Line Name | Role | Phone | + +------+ + | Alejandro Yen DO | PCP | | + +------+ + Reason for Visit + +--------+ + | Reason | Onset | Comments | | | Date | | + +--------+ + | Results, Imaging | 02/05/ | | | | 2017 | | + +--------+ + Encounter Details +--------+ + + + + | Date | Type | Department | Care Team | Description | +--------+ + + + + | 02/05/ | Telephone | [facility] [place] | Moises Spivey, | Results, Imaging | | 2018 | | PHYSIATRY [address] | MD [address] | | | | | [address] | [place], [place] | | | | | [place], [place] | [address] | | | | | [address] | | | | | | [phone] | | | +--------+ + + + [...] this encounter Miscellaneous Notes Telephone Encounter - Juliana Jean, Software Sales - 02/05/2018 4:27 PM PDTCalle d to inform Tamara Serrano of imaging results. Results were relayed. She verbalized understanding. elephone Encounter - Juliana Jean Software Sales - 02/05/2018 4:26 PM PDT----- Message from Moises Spivey MD sent at 02/05/2018 15:32 PDT ----- Judi, Please let Tamara Serrano know that I have reviewed her neck x-rays. There are no emergent results. The x-rays demonstrated very mild (early) arthritic changes, but not nikki or abnormalities. I'll see her back for nerve study as planned. Thank you, Moises Spivey MD (Jr.) ----- Message ----- From: Giovanny Babcock Results In Sent: 02/05/2018 15:13 To: Moises Spivey MD do cumented in this encounter Plan of Treatment Not on filedocumented as of this encounter Visit Diagnoses Not on filedocumented in this encounter"
--- OUTSIDE RECORDS SUMMARY | ~2019-10-15 | XMS | Encounter Summary ---
Demographics + + + | Address | [address] | | | [place] [address] | + + + | Home Phone | | + + + | Preferred Language | Unknown | + + + | Marital Status | | + + + | Hoahaoism Affiliation | [id number] | + + + | Race | Unknown | + + + | Ethnic Group | Unknown | + + + Author + + + | Author | [facility] | | | and Esteban | + + + | Organization | [facility] | | | [...] Team Providers + +------+ + | Care Kitchenwhere Maker Name | Role | Phone | + [...] | hand | [address] | | | | n | numbness | [address] | [place], | | | | | Weakness of | [place], | [place] [address] | | | | | both hands | [place] [address] | Phone: | | | | | Cervicalgia | Phone: | [phone] | | | | | Procedures | [phone] | Fax: | | | | | [place] MOTOR | Fax: | [phone] | | | | | &/SENS 1-2 | [phone] | | | | | | NRV CNDJ | | | | | | | PRECONF | | | | | | | [place] | | | | | | | [place] MOTOR | | | | | | | &/SENS 3-4 | | | | | | | NRV CNDJ | | | | | | | PRECONF | | | | | | | [place] | | | | | | | TN MOTOR | | | | | | | &/SENS 7-8 | | | | | | | NRV CNDJ | | | | | | | PRECONF | | | | | | | [place] | | | | | | | TN MOTOR | | | | | | | &/SENS 13/> | | | | | | | NRV CNDJ | | | | | | | PRECONF | | | | | | | [place]TR[place]DE LIMB | | | | | | | TN NEEDLE | | | | | | | EMG EA | | | | | | | EXTREMITY | | | | | | | W/PARASPINL | | | | | | | AREA LIMITED | | | | | | | TN EMG, | | | | | | | NEEDLE, ONE | | | | | | | LIMB TN | | | | | | | EMG, NEEDLE, | | | | | | | TWO LIMBS | | | | | | | TN NEEDLE | | | | | | | EMG EA | | | | | | | EXTREMTY | | | | | | | W/PARASPINL | | | | | | | AREA | | | | | | | COMPLETE TN | | | | | | | OFFICE | | | | | | | OUTPATIENT | | | | | | | VISIT 25 | | | | | | | MINUTES | | | | | | | 10/30 | | | | | | | Pending-[facility] | | | | | | | response; | | | | | | | DOS /28/18 | | | +--------+ + + + + + Reason for Visit + + + | Reason | Comments | + + + | Numbness | | + + + Evaluate & Treat (Routine) +--------+--------+ + + + + | Status | Reason | Specialty | Diagnoses / | Referred By | Referred To | | | | | Procedures | Contact | Contact | +--------+--------+ + + + + | Closed | | Physical | Diagnoses | Quaempts, | Moises Spivey | | | | Medicine and | Bilateral | Alejandro Wilver DO | Bola Suarez MD [address] | | | | Rehabilitatio | hand | [address] | | | | n | numbness | [address] | [place], | | | | | | [place], | [place] [address] | | | | | | [place] [address] | Phone: | | | | | | Phone: | [phone] | | | | | | [phone] | Fax: | | | | | | Fax: | [phone] | | | | | | [phone] | | +--------+--------+ + + + + Encounter Details +--------+---------+ + + + | Date | Type | Department | Care Team | Description | +--------+---------+ + + + | 02/05/ | Office | [facility] | Moises Spivey, | Bilateral hand | | 2017 | Visit | PHYSIATRY [address] | MD [address] | numbness (Primary | | | | [address] | [place] | Dx); Weakness of | | | | [place] | [id number] | both hands; | | | | [address] | | Cervicalgia | | | | [phone] | | | +--------+---------+ + + + [...] + + + | Blood Pressure | 147/81 | 02/05/2018 1:06 PM | | | | | PDT | | + + + + + | Pulse | 87 | 02/05/2018 1:06 PM | | | | | PDT [...] + + + + | Weight | 106.3 kg (234 lb 6.4 | 02/05/2018 1:06 PM | | | | oz) | PDT | | + + + + + | Height | 168.5 cm (5' 6.34") | 02/05/2018 1:06 PM | | | | | PDT | | + + + + + | Body Mass Index | 37.45 | 02/05/2018 1:06 PM | | | | | PDT | | + + + + + documented in this encounter Patient Instructions Patient Instructions Juliana Jean, Configuration Engineer - 02/05/2018 1:00 PM PDTPurcha se and wear carpal tunnel wrist splints. Wear them at night, only at night, every night, ne heidi during waking hours. Make sure they are not too tight. They only need to prevent the w rists from bending during sleep. X-rays have been requested. Please go to the x-ray department after your appointment to co mplete these x-rays. The results of your x-rays will be reviewed at your next appointment. If your x-rays demonstrate any emergent results, the clinic will contact you. Please attend your scheduled nerve conduction study and EMG appointment. Nerve conduction studies and EMG require a great deal of time to complete. If you will be unable to make your appointment please contact the clinic at least one full business day ieleen or to your appointment . Missed appoints without cancellation will only be re scheduled once. Children under the age of 13 are not permitted in the room during the nerve study. If acco mpanied by children under the age of 13, they will need an adult to supervise them, while th ey wait in the lobby. Prior to your appointment wash the skin with soap and water. This is to remove any of the natural oils on the skin which may interfere with the completion of the study. Please do not wear any lotion prior to the study as lotion may also interfere with the comp letion of the study. When attending your study please bring appropriate attire. If you are having a study of th e upper extremities please bring a short sleeve shirt to wear during the study. If you are having a study of the lower extremities please bring shorts to wear during the study. At the time of your study, please remind the physician if you are taking any blood thinning medications such as Coumadin, or heparin. At the time of your study, please remind the physician if you have an implanted electronic device such as a pacemaker. documented in this encounter Progress Notes Moises Spivey MD - 02/05/2018 1:00 PM PDTFormatting of this note might be different fro m the original. Physical Medicine & Rehabilitation Consult Referring Provider: Alejandro Yen DO Date of Service: 02/05/18 Patient ID: Tamara Serrano is a 52 y.o. female with bilateral hand numbness. HPI Tamara Serrano reports that she started having numbness in the both upper extremit ies, about one year ago. Her symptoms have been unchanged overtime. She reports neck pain. She rate her neck pain as 7 on a numerical pain scale. Her upper extremity numbness is continuous. Her upper extremity numbness is strongest over the bilateral hands. She reports pain in the palms of the hands. Her upper extremity numbness is exacerbated by: sleep and all activity. Her upper extremity numbness is reduced by: nothing Her numbness does wake her from sleep. Tamara Serrano reports weakness. She reports dropping objects. Tamara Serrano denies taking blood thinning medications such as Coumadin or hepari n. She denies having implanted electronic device such as a pacemaker. She reports a history of diabetes. She denies a history of thyroid disease. She denies a history of rheumatoid arthritis. She denies a history of chemical exposure. She denies a history of frequent alcohol consumption. Tamara Serrano reports that they have not had previous nerve conduction study. Past Medical History Past Medical History: Diagnosis Date Abnormal liver [...] mellitus (HCC) Vitamin D deficiency Past Surgical History No past surgical history on file. Family History: No family history on file. Social History: Social History Social History Marital status: Spouse name: CATHI OMALLEY Number of children: N/A Years of education: N/A Occupational History [employer] Social History Main Topics Smoking status: Not on file Smokeless tobacco: Never Used Alcohol use No Drug use: Unknown Sexual activity: Not on file Other Topics Concern Not on file Social History Narrative No narrative on file Allergies: Allergies Allergen Reactions Cephalexin Other (See [...] Reaction not specified in outside medical records Medications: Outpatient Encounter Prescriptions as of 02/05/2018 Medication Sig Dispense Refill albuterol (PROAIR HFA) 90 mcg/puff inhaler Inhale 2 puffs into the lungs every 6 hours as needed for Shortness of Breath. celecoxib (CELEBREX) 200 mg capsule Take 200 mg by mouth Twice daily as needed for Asif n (Arthritis). ergocalciferol (VITAMIN D-2) 50,000 units capsule Take 50,000 Units by mouth Once a wee k. fexofenadine (RADHA) 180 mg tablet Take 180 mg by mouth Daily as needed for Allergies . [DISCONTINUED] hydrocortisone (ANUSOL-HC) [address] 25 mg rectally Twice daily as needed for Hemorrhoidal Pain. [DISCONTINUED] hydrophilic ointment APPLY A SMALL AMOUNT TO AFFECTED AREA(S) EVERY DAY TO FEET DIRECTED insulin aspart (NOVOLOG) 100 units/mL injection Inject [...] tablet Take 10 mg by mouth nightly. olopatadine (PATANOL) 0.1% ophthalmic solution Place 1 drop into both eyes 2 times trent y. [DISCONTINUED] SitaGLIPtin-MetFORMIN HCl 50-1000 MG TB24 Take 2 tablets by mouth Daily. No facility-administered encounter medications on file as of 02/05/2018. Review of Systems:ROS GENERALLY: No fever, no night sweats, no anemia, no fatigue, no recent profound weight ch anges. EYES: No eye problems, + use of corrective lenses, no eye injury, no double vision, no bli ndness. EARS, NOSE, AND THROAT: No changes in taste or smell, no hearing difficulty, + ringing in the ears, + ear drainage, no dizziness, no voice changes, no difficulty swallowing, + signif icant snoring, no sleep apnea, no sinus problems, no major dental work. NEUROLOGICALLY:The patient has + numbness/pain of arms, no numbness/pain of legs, no awake with numbness/pain, +weakness, +muscle aching, no coordination difficulty, no change in walk , no head injury, no neck injury, no back injury, no pain in neck, no pain in back, no strok e, no fainting spells, no loss of consciousness, no tremor/shaking, no seizures, no headache s, +migraine, no memory loss, no speech difficulty, no confusion and no numbness of face. PSYCHIATRIC: No depression, no sleep disorders, no anxiety, no bipolar disorder, no psycho tic episodes. CARDIOVASCULAR: No heart attacks, no heart murmur, no heart fluttering, no chest pain, no ankle swelling. LUNG DISEASE: No shortness of breath, no cough, no tuberculosis, no bloody cough, no asth ma, no emphysema/COPD. GASTROINTESTINAL: No bowel disease, no nausea or vomiting, no rectal bleeding, no constipa tion, no stool incontinence, no liver disease, no gallbladder disease, no abdominal pain, no ulcers. KIDNEY DISEASE: No urinary frequency, no painful or difficult urination, no incontinence. ENDOCRINE: + diabetes, no thyroid disease, no osteopenia or osteoporosis, no breast drainag e. SKIN: No breast lumps, no skin changes, no rashes, no itches. HEMATOLOGIC/LYMPHATIC: No enlarged lymph nodes, no easy or unusual bleeding, no personal h istory of cancer. RHEUMATOLOGIC: + joint arthritis, no rheumatoid arthritis. Vitals: 02/05/18 1306 BP: 147/81 Pulse: 87 PainSc: 7 PainLoc: Neck Objective Physical Exam: General Appearance: Alert and Oriented to person, place, time and situation, no distress. HEENT: PERRL, conjunctiva clear, no scleral icterus, EOM's intact Neck: No tenderness to cervical paraspinal muscles, normal ROM, Spurling's test negative po sitive bilaterally. Heart: Regular Rate and Rhythm Lungs: No audible wheezing or crackles. Abdomen: Distended Back: Symmetric Extremities: No clubbing, cyanosis or edema in all four extremities No focal muscle atrophy of the hands No fasciculations in the bilateral upper extremities Neurological: Cranial Nerves: Intact Speech: Normal Sensory: decreased sensation left second digit to monofilament touch Subjective decreased sensation throughout bilateral upper extremities to monofilament touch . Motor: Normal 5/5 strength in both upper extremities including biceps, triceps, wrist dorsiflexion , finger abduction. 4 right hand industrial engineering analyst. 4+ left hand industrial engineering analyst. Reflexes: 2+ normal and symmetric over the biceps, triceps, and brachioradialis of both upper extremi ties. Tinel's test negative over the median nerve at both wrists. Phalen's test was positive at 15 seconds bilateral wrists. Database: No new imaging is available for review. Assessment 1. Bilateral hand numbness 2. Weakness of both hands 3. Cervicalgia Plan 1. The differential diagnosis for Tamaramarlena Simmonsilia-Shahram's symptoms included, but are not limited to: carpal tunnel syndrome, cervical radiculopathy and cervical spinal stenosis. K rocael Garcia-Shahram's clinical presentation is most consistent with bilateral carpal tunn el syndrome, with possible superimposed cervical radiculopathy. Treatment options for cervical radiculopathy include physical therapy, neuropathic pain med ication, cervical steroid injections and last resort surgery. 2. Today we reviewed that the nerve study will hopefully help us localize the origin of sy mptoms. We discussed that if carpal tunnel syndrome is discovered, that the nerve study can help determine if the carpal tunnel syndrome is mild, moderate or severe. We discussed chula t if carpal tunnel is mild the treatments tend to be conservative such as antiinflammatories , hand therapy, wrist splints and sometimes steroid injection. We discussed that moderate a nd severe carpal tunnel syndrome generally require surgical release. We discussed that with severe carpal tunnel syndrome there may be permanent damage to the nerve that does not reso lve despite adequate surgical release. We discussed natural progress of carpal tunnel syndr ome. We reviewed that carpal tunnel if left untreated, tends to get progressively worse ove r time. We discussed that if severe carpal tunnel syndrome is left untreated that the amoun t of permanent nerve damage can get worse leading to worse disability. Today we discussed how to prepare for nerve conduction study and EMG. We discussed not wea ring lotion and bringing a short sleeve shirt to wear. We discussed the process of the test , which involves small shocks to the nerves and that the study may include pin sticks, witho ut shock into the muscles. 3. Tamara Serrano was advised to purchase and wear carpal tunnel wrist splints. W ear them at night, only at night, every night, never during waking hours. Make sure they ar e not too tight. They only need to prevent the wrists from bending during sleep. We dicusse d that it only takes approximately 30 minutes of pressure on a nerve to cause nerve damage, but may take approximately 6 weeks of proper alignment and no pressure on the nerve to allow for healing. We dicussed, and emphasized that the nerves that we are born with are the nerv es we will with, thus if there is axon damage there is potential that the nerve won't co me back and symptoms won't improve. 4. Today we dicussed possible risk factors and correlating diagnosis associated with carpal tunnel. We dicussed that an individual with diabetes is approximately 6 times more likely t o develop carpal tunnel. Tamara Serrano does have history of known diabetes diagno sed in 2012. 5. Unfortunately due to time limitations we could not discuss low back pain with radicular symptoms. Tamara Serrano requests evaluation for her back pain. Tamara Howard was referred for neck pain, arm numbness, and nerve study. Tamara Serrano s hould return to clinic to discuss back pain with Hemant Rodriguez PA-C. 6. Tamara Serrano will return to the clinic for nerve conduction study and EMG to evaluate for the differential diagnosis above. Tamara Serrano's presentation is most consistent with bilateral carpal tunnel synd luisito. She may also have bilateral cervical radiculopathy. Spurling's test was positive greg aterally. She will return to the clinic for bilateral nerve conduction study and EMG. We w ill discuss treatment options based off of nerve study results. She will complete cervical x-rays evaluate for spondylosis prior to nerve study. If cervical radiculopathy is found on nerve study, cervical MRI will likely be requested. If nerve study is unremarkable, this w ould suggest possible cervical spinal stenosis. Cervical MRI is necessary to diagnosis cerv ical spinal stenosis, as cervical spinal stenosis cannot be diagnosed, nor ruled out by nerv e conduction study and EMG. Thank you for allowing me to be involved in the care of your patient. If you have any ques tions regarding the care of your patient please don't hesitate to call. Approximately 45 minutes was spent face to face with Tamara Serrano, over half of which was spent formulating and discussing their medical treatment plan. I, Moises Spivey MD personally performed the services described in this documentation, as scribed by in my presence, IMTIAZ Escobar and are both accurate and complete. Moises Spivey MD - 02/05/2018 Cc: Alejandro Yen DO documented in this en counter Plan of Treatment + + +--------+ + + | Name | Type | Priori | Associated Diagnoses | Order Schedule | | | | ty | | | + + +--------+ + + | * [facility] [place] | Outpatient | Routin | Bilateral hand | Ordered: 02/05/2018 | | Physiatry - AMB | Referral | e | numbness Weakness | | | Referral | | | of both hands | | | | | | Cervicalgia | | + + +--------+ + + documented as of this encounter Results XR Cervical Spine 4 or 5 Vws (02/05/2018 2:33 PM PDT) + + | Specimen | + + | | + + + + + | Narrative | Performed At | + + + | CLINICAL INFORMATION: Neck pain. COMPARISON: None. | [facility] | | FINDINGS: AP, lateral, and lateral flexion and extension views of | | | the cervical spine. Alignment: Normal. No listhesis. No abnormal | | | translation with flexion or extension. Vertebral bodies: Normal | | | in height. No vertebral fracture. Disk spaces: Multilevel small | | | anterior osteophyte formation. No significant disc height loss. | | | Mild facet arthrosis at C7-T1. Soft tissues: Unremarkable. | | | IMPRESSION - Early multilevel degenerative changes of the cervical | | | spine. No evidence of instability. Dictated and Signed by: | | | Jeramie Del Rio MD Electronically signed: 02/05/2018 3:09 PM | | + + + + + | Procedure Note | + + | Sadiq, Rad Results In - 02/05/2018 3:13 PM PDT | | CLINICAL INFORMATION: Neck pain. | | | | COMPARISON: None. | | | | FINDINGS: | | AP, lateral, and lateral flexion and extension views of the cervical spine. | | | | Alignment: Normal. No listhesis. No abnormal translation with flexion or | | extension. | | | | Vertebral bodies: Normal in height. No vertebral fracture. | | | | Disk spaces: Multilevel small anterior osteophyte formation. No significant | | disc height loss. Mild facet arthrosis at C7-T1. | | | | Soft tissues: Unremarkable. | | | | | | IMPRESSION - Early multilevel degenerative changes of the cervical spine. No | | evidence of instability. | | | | Dictated and Signed by: Jeramie Del Rio MD | | Electronically signed: 02/05/2018 3:09 PM | + + + +---------+ + + | Performing | Address | City/State/Zipcode | Phone Number | | Organization | | | | + +---------+ + + | [facility] | | | | + +---------+ + + documented in this encounter Visit Diagnoses + + | Diagnosis | + + | Bilateral hand numbness - Primary Disturbance of skin sensation | + + | Weakness of both hands | + + | Cervicalgia | + + documented in this encounter
--- OUTSIDE RECORDS SUMMARY | ~2019-10-15 | XMS | Encounter Summary ---
Demographics + + + | Address | [address] | | | [place] [address] | + + + | Home Phone | | + + + | Preferred Language | Unknown | + + + | Marital Status | | + + + | Shinto Affiliation | 1041 | + + + | Race | Unknown | + + + | Ethnic Group | Unknown | + + + Author + + + | Author | [facility] | | | and Esteban | + + + | Organization | [facility] | | | [...] Team Providers + +------+ + | Care Cafe Worker Name | Role | Phone | + +------+ + | Alejandro Yen DO | PCP | | + +------+ + Reason for Visit + +--------+ + | Reason | Onset | Comments | | | Date | | + +--------+ + | Referral | 02/17/ | appointment | | | 2018 | | + +--------+ + Encounter Details +--------+ + + + + | Date | Type | Department | Care Team | Description | +--------+ + + + + | 10/28/ | Telephone | [facility] | Davon Smith | Referral | | 2019 | | [address] | (appointment) | | | | [address] | [address] | | | | | [place], [place] | [place] [address] | | | | | [address] | [phone] | | | | | [phone] | | | +--------+ + + + [...] this encounter Miscellaneous Notes Telephone Encounter - Yelitza Ness - 02/17/2019 2:23 PM Levon, is calling regard ing Referral (appointment) and would like a call back. Additional Call Details: Schedule from referral. If this is a symptom based call, was patient offered triage? Not Applicable If this is a symptom based call and you were unable to immediately transfer the call to a josé miguel berry tile layer supervisor was caller made aware that if at any time she feels it is an emergency they sh ould call 911 or go to the nearest emergency room? not applicable documented in this encounter Plan of Treatment Not on filedocumented as of this encounter Visit Diagnoses Not on filedocumented in this encounter"
--- OUTSIDE RECORDS SUMMARY | ~2019-10-15 | XMS | Encounter Summary ---
Demographics + + + | Address | [address] | | | [place] [address] | + + + | Home Phone | | + + + | Preferred Language | Unknown | + + + | Marital Status | | + + + | Uatsdin Affiliation | 1041 | + + + | Race | Unknown | + + + | Ethnic Group | Unknown | + + + Author + + + | Author | [facility] | | | and Esteban | + + + | Organization | [facility] | | | and [...] Team Providers + +------+ + | Care Image Assembler Name | Role | Phone | + +------+ + | Alejandro Yen DO | PCP | | + +------+ + Reason for Visit + + + | Reason | Comments | + + + | Follow-up, Office | | | Visit | | + + + | Hand Problem | Left numbness | + + + Follow Up (Routine) +--------+--------+ + + + + | Status | Reason | Specialty | Diagnoses / | Referred By | Referred To | | | | | Procedures | Contact | Contact | +--------+--------+ + + + + | Closed | | Orthopedic | Diagnoses | Mark, | Akin, | | | | Surgery | Left carpal | EMILY Dow | Melchor | | | | | tunnel | [address] | MD Ar | | | | | syndrome | [address] | [address] | | | | | | [place], | [place] | | | | | | [place] [address] | [facility] [place] | | | | | | Phone: | [phone] | | | | | | [phone] | Phone: | | | | | | Fax: | [phone] | | | | | | [phone] | Fax: | | | | | | | [phone] | +--------+--------+ + + + + Encounter Details +--------+---------+ + + + | Date | Type | Department | Care Team | Description | +--------+---------+ + + + | 10/05/ | Office | [facility] | Moises Spivey, | Left carpal tunnel | | 2020 | Visit | ORTHOPEDIC SURGERY | [address] | syndrome (Primary | | | | [address] [place] | [place], [place] | Dx) | | | | [place], [place] | [address] | | | | | [address] | | | | | | [phone] | Melchor Gerardo | | | | | | MD Ar [address] | | | | | [address] [place] | | | | | | [place] [address] | | | | | | [phone] | | | | | | | | +--------+---------+ + + + [...] | 108 kg (238 lb 1.6 | 10/06/2019 11:05 AM | | | | oz) | PDT | | + + + + + | Height | 167.6 cm (5' 6") | 10/06/2019 11:05 AM | | | | | PDT | | + + + + + | Body Mass Index | 38.43 | 10/06/2019 11:05 AM | | | | | PDT | | + + + + + documented in this encounter Patient Instructions Patient Instructions Melchor Gerardo MD - 10/06/2019 11:15 AM PDT Carpal Tunnel Syndrome Carpal tunnel syndrome is [...] not bent back when typing. You may gubycni-uyo-jpsaeiu pain medicine to treat pain and inflammation, [...] Your whole arm becomes swollen or weak [employer] last reviewed this educational content on 08/21/[id number] [employer]. [address] [place] [address], [place] [address]. All righ ts reserved. This information is not intended as a substitute for professional medical care. Always follow your healthcare professional's instructions. documented in this encounter Progress Notes Melchor Gerardo MD - 10/06/2019 11:15 AM PDTFormatting of this note might be dif ferent from the original. [facility] RETURN CLINIC VISIT Pt. Name/Age/: Tamara Serrano 53 y.o. 1965 Primary Care Physician: Alejandro Yen Chief Complaint/Reason for Visit: Follow-up, Office Visit and Hand Problem (Left numbness) History of Present Illness: The patient is a pleasant 53 y.o. female who presents for a repeat visit for left carpal tu nnel syndrome in her right middle finger trigger finger. She states that neither 1 causes h er a lot of pain all the time. The trigger finger to be particularly painful in the morning . The numbness and tingling in her left hand is intermittent and not constant. It does bot her her significantly however. We did her right carpal tunnel last year and she recovered w ell from that. Past Medical History: Past Medical History: Diagnosis [...] deficiency Past Surgical History: Procedure Laterality Date CARPAL TUNNEL RELEASE Right 08/09/2018 Procedure: RIGHT RELEASE CARPAL TUNNEL; Surgeon: Melchor Gerardo MD; Location: [facility] MAIN OR KNEE SURGERY Bilateral Allergies: Allergies Allergen Reactions [...] outside medical records Current Medications: Current Outpatient Medications Medication Sig Dispense Refill albuterol (PROAIR HFA) 90 mcg/puff inhaler Inhale 2 puffs into the lungs every 6 hours as needed for Shortness of Breath. azithromycin (ZITHROMAX) 250 mg tablet Take 250 mg by mouth Daily. B-D ULTRAFINE III SHORT PEN 31G X 8 MM celecoxib (CELEBREX) 200 mg capsule Take 200 mg by mouth Twice daily as needed for Asif n (Arthritis). clindamycin (CLEOCIN) 300 MG capsule take 1 capsule by mouth four times a day 0 Continuous Blood Gluc Home Mortgage Disclosure Act Specialist (TweetwallSTYLE [place] 14 DAY READER) ELIEZER Continuous Blood Gluc Sensor (FREESTYLE [place] 14 DAY SENSOR) MISC ergocalciferol (VITAMIN D-2) 50,000 units capsule Take 50,000 Units by mouth Once a wee k. fexofenadine (RADHA) 180 mg tablet Take 180 mg by mouth Daily as needed for Allergies . fluconazole (DIFLUCAN) 150 mg tablet take 1 tablet by mouth as a single dose 0 fluticasone (FLONASE) 50 mcg/nasal spray HUMULIN N KWIKPEN 100 UNIT/ML injection pen HYDROcodone-acetaminophen (NORCO) 5-325 mg per tablet Take 1-2 tablets by mouth every 4 hours as needed for Pain. 20 tablet 0 insulin aspart (NOVOLOG) 100 units/mL injection Inject 30 Units under the skin 3 times daily [...] nightly. NOVOLOG FLEXPEN 100 UNIT/ML injection pen NOVOLOG MIX 70/30 FLEXPEN (70-30) 100 UNIT/ML PEN olopatadine (PATANOL) 0.1% ophthalmic solution Place 1 drop into both eyes 2 times trent y. SYMBICORT 160-4.5 MCG/ACT inhaler Take 160 mcg by mouth 2 times daily. TRUE METRIX BLOOD GLUCOSE TEST strip TRUEPLUS LANCETS 28G MISC ULTICARE ALCOHOL SWABS 70 % PADS No current facility-administered medications for this visit. Family History: Family History Problem Relation Age of Onset Diabetes Mother Diabetes Father Hypertension Father Diabetes Brother High blood pressure Brother Diabetes Paternal Grandfather High blood pressure Paternal Grandfather Social History: Social History Socioeconomic History Marital status: Spouse name: CATHI OMALLEY Number of children: 4 Years of education: Not on file Highest education level: Not on file Occupational History Employer: [employer] Social Needs Financial resource strain: Not on file Food insecurity Worry: Not on file Inability: Not on file Transportation needs Medical: Not on file Non-medical: Not on file Tobacco Use Smoking status: Former Smoker Smokeless tobacco: Never Used Substance and Sexual Activity Alcohol use: No Drug use: No Sexual activity: Yes Lifestyle Physical activity Days per week: Not on file Minutes per session: Not on file Stress: Not on file Relationships Social connections Talks on phone: Not on file Gets together: Not on file Attends advent service: Not on file Active member of club or organization: Not on file Attends meetings of clubs or organizations: Not on file Relationship status: Not on file Intimate partner violence Fear of current or ex partner: Not on file Emotionally abused: Not on file Physically abused: Not on file Forced sexual activity: Not on file Other Topics Concern Not on file Social History Narrative Not on file Review of Systems All of these are negative unless otherwise marked Musculoskeletal: [] Physical handicaps [] Back or shoulder pain []Rheumatoid disease [] Osteoarthritis [] Joint pain [] Joint swelling []Gout [] Leg cramps at night Endocrine: [] Thyroid [] Diabetes Admission Weight: Weight: 108 kg (238 lb 1.6 oz) BMI: Body mass index is 38.43 kg/m . Physical Examination: Ht 1.676 m (5' 6") | Wt 108 kg (238 lb 1.6 oz) | BMI 38.43 kg/m General: Alert, oriented, no acute distress HEENT: Normocephalic, atraumatic Cardiovascular: Regular rate and rhythm Respiratory: Breathing normally at a regular rate Ortho Exam Right upper extremity: Tender over the A1 jordana of the right middle finger. No obvious triggering in the room. Sensation intact light touch over the radial and ulnar aspects of the finger. Left upper extremity: The patient has a positive Alyx's compression and a positive Tinel's at the carpal tunnel . Positive elbow flexion test and positive cubital tunnel Tinel's as well. She has 60 degr ees of wrist extension, 70 degrees of wrist flexion, 20 degrees of wrist radial deviation at 35 degrees of wrist ulnar deviation. Radial pulse 2+. Sensation intact to light touch in th e first dorsal webspace, and the pads of the small and index fingers. Able to flex and exten d the thumb at the interphalangeal joint, make an "ok" sign, adduct and abduct the fingers, and oppose the thumb to the small finger. No thenar eminence atrophy noted. Diagnostic Studies: Imaging Electrodiagnostic testing of the left carpal tunnel dated 04/25/2018 reviewed. The patient h as moderate carpal tunnel of the left wrist. Labs- Lab Results Component Value Date NA 136 08/08/2018 K 4.0 08/08/2018 CL 101 08/08/2018 CO2 30 08/08/2018 ANIONGAP 5 08/08/2018 GLU 277 (H) 08/08/2018 BUN 12 08/08/2018 CREA 0.80 08/08/2018 GFRNONAA >60 08/08/2018 CALCIUM 9.4 08/08/2018 ALBUMIN 4.1 08/08/2018 BILITOT 0.7 08/08/2018 TOTALPROTEIN 6.1 08/08/2018 AST 94 (H) 08/08/2018 ALT 105 (H) 08/08/2018 ALKPHOS 164 (H) 08/08/2018 HGB 14.0 08/08/2018 PLT 368 08/08/2018 Assessment and Plan: 1. Left carpal tunnel syndrome The patient is a pleasant 53 y.o. female who presents for a repeat visit with left carpal t unnel and a right middle trigger finger. Treatment options were discussed with the patient i ncluding non-operative treatment modalities. Considering the nature of the patient's conditi on, decision was made to proceed with nonoperative management of these conditions at the [facility]. The patient wants to get her A1c down and work on getting her knee replaced. That is wh at bothers her the most. I do not think it ramos to perform either of these surgeries at the same time as a knee replacement and she would need to use a walker. Similarly, I do not th ink it would be ramos to perform both surgeries at the same time as they are on separate limi ts. Unfortunately, these will need to be staged. As she continues to have intermittent symptoms in her left hand and no sign of wasting, I t hink that proceeding with the knee before hand is reasonable. If her numbness and tingling goes to be constant or she starts to have wasting, my opinion changes and I believe that she should move forward with the carpal tunnel sooner. Of note, I am only billing for the carpal tunnel is it as I do not have a referral for the middle finger trigger finger. However, that is something that will need to be addressed at some point Follow-up: Return if symptoms worsen or fail to improve. with no x-ray Portions of this report were transcribed using voice recognition software. Every effort wa s made to ensure accuracy; however, inadvertent computerized assembly mechanic errors may be pre sent. I appreciate the opportunity to help with the management of this patient. Melchor Gerardo MD documented in this encounter Plan of Treatment Not on filedocumented as of this encounter Visit Diagnoses + + | Diagnosis | + + | Left carpal tunnel syndrome - Primary Carpal tunnel syndrome | + + documented in this encounter
--- OUTSIDE RECORDS SUMMARY | ~2019-10-15 | XMS | Encounter Summary ---
Demographics + + + | Address | [address] | | | [place] [address] | + + + | Home Phone | | + + + | Preferred Language | Unknown | + + + | Marital Status | | + + + | Sikh Affiliation | 1041 | + + + | Race | Unknown | + + + | Ethnic Group | Unknown | + + + Author + + + | Author | [facility] | | | and Esteban | + + + | Organization | [facility] | | | and [...] Team Providers + +------+ + | Care Roll Inspector Name | Role | Phone | + +------+ + | Alejandro Yen DO | PCP | | + +------+ + Encounter Details +--------+ + + + + | Date | Type | Department | Care Team | Description | +--------+ + + + + | 02/05/ | Hospital | [facility] | Moises Spivey, | Bilateral hand | | 2018 | Encounter | MED CTR XRAY [address] | [address] | numbness; Weakness | | | | [address] [place] | [place], [place] | of both hands; | | | | [place] [address] | [address] | Cervicalgia | | | | [phone] | | | +--------+ + + + [...] at Time of Discharge + + + +---------+--------+ + | Medication | Sig | Dispensed | Refills | Start | End Date | | | | | | Date | | + + + +---------+--------+ + | albuterol (PROAIR | Inhale 2 puffs into | | 0 | | | | HFA) 90 mcg/puff | the lungs every 6 | | | | | | inhaler | hours as needed for | | | | | | | Shortness of Breath. | | | | | + + + +---------+--------+ + | celecoxib | Take 200 mg by mouth | | 0 | | | | (CELEBREX) 200 mg | Twice daily as | | | | | | capsule | needed for Pain | | | | | | | (Arthritis). | | | | | + + + +---------+--------+ + | ergocalciferol | Take 50,000 Units by | | 0 | | | | (VITAMIN D-2) 50,000 | mouth Once a week. | | | | | | units capsule | | | | | | + + + +---------+--------+ + | fexofenadine | Take 180 mg by mouth | | 0 | | | | (RADHA) 180 mg | Daily as needed for | | | | | | tablet | Allergies. | | | | | + + + +---------+--------+ + | insulin aspart | Inject 30 Units | | 0 | | | | (NOVOLOG) 100 | under the skin 3 | | | | | | units/mL injection | times daily (before | | | | | | | meals). | | | | | + + + +---------+--------+ + | insulin glargine | Inject 75 Units | | 0 | | | | (LANTUS SOLOSTAR) | under the skin | | | | | | 100 units/mL | nightly. | | | | | | injection (pen) | | | | | | + + + +---------+--------+ + | lisinopril | Take 10 mg by mouth | | 0 | | | | (PRINIVIL, ZESTRIL) | Daily. | | | | | | 10 mg tablet | | | | | | + + + +---------+--------+ + | metaxalone | Take 800 mg by mouth | | 0 | | | | (SKELAXIN) 800 mg | 4 times daily. | | | | | | tablet | | | | | | + + + +---------+--------+ + | montelukast | Take 10 mg by mouth | | 0 | | | | (SINGULAIR) 10 mg | nightly. | | | | | | tablet | | | | | | + + + +---------+--------+ + | olopatadine | Place 1 drop into | | 0 | | | | (PATANOL) 0.1% | both eyes 2 times | | | | | | ophthalmic solution | daily. | | | | | + + + +---------+--------+ + documented as of this encounter Plan of Treatment Not on filedocumented as of this encounter Procedures + +--------+ + + + | Procedure Name | Priori | Date/Time | Associated Diagnosis | Comments | | | ty | | | | + +--------+ + + + | XR CERVICAL SPINE 4 | Routin | 02/05/2018 | Bilateral hand | Results for this | | OR 5 VWS | e | 2:33 PM | numbness Weakness | procedure are in the | | | | PDT | of both hands | results section. | | | | | Cervicalgia | | + +--------+ + + + documented in this encounter Results XR Cervical Spine 4 [...] | + + | Bilateral hand numbness Disturbance of skin sensation | + + | Weakness of both hands | + + | Cervicalgia | + + documented in this encounter"
--- OUTSIDE RECORDS SUMMARY | ~2019-10-15 | XMS | Encounter Summary ---
Demographics + + + | Address | [address] | | | [place] [address] | + + + | Home Phone | | + + + | Preferred Language | Unknown | + + + | Marital Status | | + + + | Restoration Affiliation | 1041 | + + + | Race | Unknown | + + + | Ethnic Group | Unknown | + + + Author + + + | Author | [facility] | | | and Esteban | + + + | Organization | [facility] | | [...] Team Providers + +------+ + | Care Human Resources Records Clerk Name | Role | Phone | + +------+ + PCP | Unavailable | + +------+ + Encounter Details +--------+ + + + + | Date | Type | Department | Care Team | Description | +--------+ + + + + | 11/29/ | Hospital | [facility] | | | | 2005 | Encounter | MED CTR XRAY [address] | | | | | | [address] | | | | | | [place] [address] | | | | | | [phone] | | | +--------+ + + + + Social History + +-------+ +--------+------+ | Tobacco Use | Types | Packs/Day | Years | Date | | | | | Used | | + +-------+ +--------+------+ | Never Assessed | | | | | + +-------+ +--------+------+ + + + | Sex Assigned at | Date Recorded | | | | + + + | Not on file | | + + + documented as of this encounter Plan of Treatment Not on filedocumented as of this encounter Visit Diagnoses Not on filedocumented in this encounter"
--- OUTSIDE RECORDS SUMMARY | ~2019-10-15 | XMS | Encounter Summary ---
Demographics + + + | Address | [address] | | | [place] [address] | + + + | Home Phone | | + + + | Preferred Language | Unknown | + + + | Marital Status | | + + + | Presybeterian Affiliation | 1041 | + + + | Race | Unknown | + + + | Ethnic Group | Unknown | + + + Author + + + | Author | [facility] | | | and Esteban | + + + | Organization | [facility] | | [...] Team Providers + +------+ + | Care Flow Machine Operator Name | Role | Phone | + +------+ + | Alejandro Yen DO | PCP | | + +------+ + Reason for Visit + + + | Reason | Comments | + + + | Follow-up, Office | Discuss options | | Visit | | + + + | Knee Pain | Left | + + + Follow Up (Routine) +--------+--------+ + + + + | Status | Reason | Specialty | Diagnoses / | Referred By | Referred To | | | | | Procedures | Contact | Contact | +--------+--------+ + + + + | Closed | | Orthopedic | Diagnoses | Mark, | Akin, | | | | Surgery | Left knee | EMILY Dow | Melchor | | | | | pain | [address] | MD Ar | | | | | | [address] | [address] | | | | | | [place], | [place] | | | | | | [place] [address] | [place] | | | | | | Phone: | [phone] | | | | | | [phone] | Phone: | | | | | | Fax: | [phone] | | | | | | [phone] | Fax: | | | | | | | [phone] | +--------+--------+ + + + + Encounter Details +--------+---------+ + + + | Date | Type | Department | Care Team | Description | +--------+---------+ + + + | 06/11/ | Office | [facility] | Melchor Gerardo | Post-traumatic | | 2020 | Visit | ORTHOPEDIC SURGERY | [address] | osteoarthritis of | | | | [address] [place] | [address] | left knee (Primary | | | | [place], [place] | [place] [address] | Dx) | | | | [address] | [phone] | | | | | [phone] | | | +--------+---------+ + + + [...] | 108 kg (238 lb 1.6 | 10/02/2019 3:01 PM | | | | oz) | PDT | | + + + + + | Height | 167.6 cm (5' 6") | 10/02/2019 3:01 PM | | | | | PDT | | + + + + + | Body Mass Index | 38.43 | 10/02/2019 3:01 PM | | | | | PDT | | + + + + + documented in this encounter Patient Instructions Patient Instructions Melchor Gerardo MD - 10/02/2019 3:00 PM PDT Understanding Osteoarthritis of the Knee A joint is a place where 2 bones meet. The knee is called a hinge joint. This joint is form ed where the thighbone (femur) meets the shinbone (tibia). A healthy knee joint bends freely . Knee osteoarthritis is a condition where parts of the knee joint wear out. This can lead t o pain, stiffness, and limited movement. What is osteoarthritis? Every joint contains a smooth tissue called cartilage. Cartilage cushions the ends of bones and helps bones in a joint glide smoothly against each other. Knee osteoarthritis occurs wh en cartilage in the knee joint starts to break down and wear away. Bones may become exposed and rub together. The cartilage may become irritated and rough. This prevents smooth movemen t of the joint and can lead to pain. Causes of osteoarthritis of the knee Causes can include: Wear and tear from normal use over time Overuse of the knee during sports or work activities Being overweight, which increases stress on the knee joint Misalignment of the knee joint Injury to the knee Inflammatory arthritis, which can cause a secondary osteoarthritis Gout or pseudogout, which can cause a secondary osteoarthritis Symptoms of osteoarthritis of the knee Common symptoms include: Pain and swelling around the joint. The pain and swelling get worse with activity and be tter with rest. Grinding sound when moving the knee Reduced knee movement Knee stiffness. This is often worse first thing in the morning. Treating osteoarthritis of the knee Osteoarthritis is a long-term condition. Treatment is done to manage symptoms. It may inclu de: Medicines taken by mouth to help relieve pain and swelling Injections of medicine into the joint to help relieve symptoms for a time A weight-loss plan for people who are overweight A plan of physical therapy and exercises to improve the strength and flexibility of the muscles around the knee Heat or cold therapy to help relieve pain and stiffness Assistive devices that help with movement, such as a cane or a walker Devices that make daily tasks easier, such as raised toilet seats or shower bars If other treatments don t help to relieve symptoms, you may need surgery. This is done to replace the joint. During this surgery, the damaged joint is removed. An artificial knee alana int is then put into place. This can help relieve pain and stiffness.It can restore movement of the knee. When to call your healthcare provider Call your healthcare provider right away if you have any of these: Fever of 100.4F (38C) or higher, or as directed by your healthcare provider Symptoms that don t get better with prescribed medicines or get worse New symptoms [employer] last reviewed this educational content on 02/21/[id number] [employer]. [address] [place] [address], [place] [address]. All righ ts reserved. This information is not intended as a substitute for professional medical care. Always follow your healthcare professional's instructions. documented in this encounter Progress Notes Melchor Gerardo MD - 10/02/2019 3:00 PM PDTFormatting of this note might be dif ferent from the original. [facility] RETURN CLINIC VISIT Pt. Name/Age/: Tamara Serrano 53 y.o. 1965 Primary Care Physician: Alejandro Yen Chief Complaint/Reason for Visit: Follow-up, Office Visit (Discuss options) and Knee Pain (Left) History of Present Illness: The patient is a pleasant 53 y.o. female who presents for a repeat visit for her left knee. The patient has had chronic left knee pain. I past with injections. She has had both taqueria roid injections and gel 1 injections. At her last visit, she had a gel 1 injection which annetta vizcaino states only gave her about 2 weeks of pain relief. That was done in January of last year. Her pain is a 7 out of 10 at its worst. She feels like she has increased pain with activ ity such as walking, running, and sleeping. She still walks a couple miles each day. She s tates that she was getting her A1c under control. She had gotten it down to 8. However, annetta vizcaino recently saw to follow-up with the pandemic. Her most recent A1c was obtained last week a nd was at 10. He is going to work on getting it back down. She has no concerns. Past Medical History: Past Medical History: Diagnosis [...] CARPAL TUNNEL; Surgeon: Melchor Gerardo MD; Location: [facility] MAIN OR KNEE SURGERY Bilateral Allergies: Allergies [...] times a day 0 Continuous Blood Gluc Research Subject (FREESTYLE [place] 14 DAY READER) ELIEZER Continuous Blood [...] every 4 hours as needed for Pain. (Patient not taking: Reported on 10/02/2019) 20 tablet 0 insulin aspart (NOVOLOG) 100 [...] Not on file Occupational History Employer: [employer] Social Needs Financial resource strain: Not on file Food insecurity: Worry: Not on file Inability: Not on file Transportation needs: Medical: Not on file Non-medical: Not on file Tobacco Use Smoking status: Former Smoker Smokeless tobacco: Never Used Substance and Sexual Activity Alcohol use: No Drug use: No Sexual activity: Yes Lifestyle Physical activity: Days per week: Not on file Minutes per session: Not on file Stress: Not on file Relationships Social connections: Talks on phone: Not on file Gets together: Not on file Attends roman catholic service: Not on file Active member of club or organization: Not on file Attends meetings of clubs or organizations: Not on file Relationship status: Not on file Intimate partner violence: Fear of current or ex partner: Not [...] normally at a regular rate Ortho Exam Left Knee Exam Tenderness: Mild medial joint line tenderness Left Knee Passive Range of Motion: 0/115 Left Knee Anterior Drawer Negative Posterior Drawer Negative Varus Stress Negative Valgus Stress Negative The patient has a varus deformity which is correctable. She has a scar from her old ACL reconstruction. This overlies the lateral aspect of the kn ee. It looks like she likely had a lateral parapatellar arthrotomy. Diagnostic Studies: Imaging 4 views of the left knee dated 01/22/2019 demonstrate 2 screws remaining in the knee. One i s in the proximal tibia and one is the distal femur. These are consistent with a prior ACL reconstruction. She has glpy-wz-ddgm osteoarthrosis of the medial compartment. No signific ant patellofemoral osteoarthritis. The lateral joint line does demonstrate mild osteophytos is. Labs- Lab Results Component Value Date NA [...] PLT 368 08/08/2018 Assessment and Plan: 1. Post-traumatic osteoarthritis of left knee The patient is a pleasant 53 y.o. female who presents for a repeat visit with posttraumatic osteoarthritis of the left knee. Treatment options were discussed with the patient includin g non-operative treatment modalities. Considering the nature of the patient's condition, rodríguez maria was made to proceed with a left total knee arthroplasty once her A1c is under control. We will plan on putting in the order later. I did have a lengthy discussion with her rega rding the surgery itself and its risks, benefits, and alternatives. She is aware that she n eeds to get her A1c to 7.5 or lower in order to proceed with the surgery. All the risk such as continued pain, instability, infection, nerve injury, potential need f or revision, the need for hardware removal, and medical complications such as heart attack, stroke, and were discussed. All questions were answered. Follow-up: Return she will call in 2 months with next A1c. with no x-ray Portions of this report were transcribed using voice recognition software. Every effort wa s made to ensure accuracy; however, inadvertent computerized refuse and recycling worker errors may be pre sent. I appreciate [...]
--- OUTSIDE RECORDS SUMMARY | ~2019-10-15 | XMS | Encounter Summary ---
Demographics + + + | Address | [address] | | | [place] [address] | + + + | Home Phone | | + + + | Preferred Language | Unknown | + + + | Marital Status | | + + + | Yazdanism Affiliation | 1041 | + + + | Race | Unknown | + + + | Ethnic Group | Unknown | + + + Author + + + | Author | [facility] | | | and Esteban | + + + | Organization | [facility] | | | and [...] Team Providers + +------+ + | Care Workers Compensation Consultant Name | Role | Phone | + +------+ + | Alejandro Yen DO | PCP | | + +------+ + Encounter Details +--------+ + + + + | Date | Type | Department | Care Team | Description | +--------+ + + + + | 04/01/ | Hospital | [facility] | Davon Smith | Left foot pain | | 2019 | Encounter | [facility] [address] | [address] | | | | | [address] | [address] | | | | | [place], [place] | [place] [address] | | | | | [address] | [phone] | | | | | [phone] | | | +--------+ + + + [...] + + + +---------+ + + | azithromycin | Take 250 mg by mouth | | 0 | 08/22/19 | | | (ZITHROMAX) 250 mg | Daily. | | | 19 | | | tablet | | | [...] + + + +---------+ + + | Continuous Blood | | | 0 | 02/07/20 | | | Gluc Photoengraving Photographer | | | | 19 | | | (FREESTYLE [place] 14 | | | | | | | DAY READER) ELIEZER | | | | | | + + + +---------+ + + | Continuous Blood | | | 0 | 01/29/20 | | | Gluc Sensor | | | | 19 | | | (FREESTYLE [place] 14 | | | | | | | DAY SENSOR) MISC | | | | | | + [...] + + + +---------+ + + | HUONG COLLADO | | | 0 | 02/28/20 | | | 100 UNIT/ML | | | | 19 | | | injection pen | | | | | | + + + +---------+ + + | | Take 1-2 tablets by | 20 | 0 | // | | | HYDROcodone-acetamin | mouth every [...] + + +---------+ + + | NOVOLOG MIX 70/30 | | | 0 | 01/30/20 | | | FLEXPEN (70-30) 100 | | | | 19 | | | UNIT/ML PEN | | | | | | + + + +---------+ + + | olopatadine | Place 1 drop into | | 0 | | | | (PATANOL) 0.1% | both eyes 2 times | | | | | | ophthalmic solution | daily. | | | | | + + + +---------+ + + | SYMBICORT 160-4.5 | Take 160 mcg by | | 0 | 12/07/19 | | | MCG/ACT inhaler | mouth 2 times daily. | | | 19 | | + + + +---------+ + [...] + +--------+ + + + | XR FOOT LEFT 3 + VW | Routin | 04/01/2019 | Left foot pain | Results for this | | | e | 3:08 PM | | procedure are in the | | | | PST | | results section. | + +--------+ + + + documented in this encounter Results XR Foot Left 3 + Vw (04/01/2019 3:08 PM PST) + + | Specimen | + + | | + + + + + | Narrative | Performed At | + + + | History: This | [facility] | | is a 53 y.o. year old female. Diagnosis for Order 1. Left foot pain | | | Indications: Left foot pain Findings/Impression: 1. 3 views of | | | the left foot demonstrate a calcaneal clinician angle within normal | | | limits. Infracalcaneal spurring noted. Well-healed osteotomy to | | | the first metatarsal with an intermetatarsal angle within normal | | | limits with hardware to the left second toe with varus attitude of the | | | first second and third toes. Hardware to the base of the left great | | | toe.. No soft tissue gas or cortical disruptions. Impression: Varus | | | left hallux with adduction of the second and third toes with | | | well-healed osteotomies. Electronically signed by: Davon Smith, | | | [facility] 04/02/2019 9:03 AM | | |the first second and third toes. Hardware to the base of the left great | | |toe.. No soft tissue gas or cortical disruptions. | | | | | |Impression: Varus left hallux with adduction of the second and third toes | | |with well-healed osteotomies. | | | | | | | | |Electronically signed by: Davon Smith DPM 04/02/2019 9:03 AM | | | | | + + + + +---------+ + + | Performing | Address | City/State/Zipcode | Phone Number | | Organization | | | | + +---------+ + + | [facility] | | | | + +---------+ + + documented in this encounter Visit Diagnoses + + | Diagnosis | + + | Left foot pain Pain in limb | + + documented in this encounter"
--- OUTSIDE RECORDS SUMMARY | ~2019-10-15 | XMS | Encounter Summary ---
Demographics + + + | Address | [address] | | | [place] [address] | + + + | Home Phone | | + + + | Preferred Language | Unknown | + + + | Marital Status | | + + + | Confucianism Affiliation | 1041 | + + + | Race | Unknown | + + + | Ethnic Group | Unknown | + + + Author + + + | Author | [facility] | | | and Esteban | + + + | Organization | [facility] | | [...] Team Providers + +------+ + | Care Data Analysis Assistant Name | Role | Phone | + +------+ + | Alejandro Yen DO | PCP | | + +------+ + Reason for Visit + + + | Reason | Comments | + + + | Pre-op Exam | right carpal tunnel release dos08/09/18 | + + + | Wrist Pain | | + + + Encounter Details +--------+---------+ + + + | Date | Type | Department | Care Team | Description | +--------+---------+ + + + | 08/08/ | Office | [facility] | Melchor Gerardo | Pre-op exam (Primary | | 2019 | Visit | ORTHOPEDIC SURGERY | [address] | Dx); Right carpal | | | | [address] [place] | [address] [place] | tunnel syndrome; | | | | [place], [place] | [place] [address] | Abnormal liver | | | | [address] | [phone] | function; Mixed | | | | [phone] | | hyperlipidemia; | | | | | | Asthma, unspecified | | | | | | asthma severity, | | | | | | unspecified whether | | | | | | complicated, | | | | | | unspecified whether | | | | | | persistent; Benign | | | | | | essential | | | | | | hypertension | +--------+---------+ + + + Social History [...] + + + | Blood Pressure | 139/81 | 08/08/2018 3:48 PM | | | | | PDT | | + + + + + | Pulse | 92 | 08/08/2018 3:48 PM | | | | | PDT | | + + + + + | Temperature | 36.5 C (97.7 F) | 08/08/2018 3:48 PM | | | | | PDT | | + + + + + | Respiratory Rate | 18 | 08/08/2018 3:48 PM | | | | | PDT | | + + + + + | Oxygen Saturation | 97% | 08/08/2018 3:48 PM | | | | | PDT | | + + + + + | Inhaled Oxygen | - | - | | | Concentration | | | | + + + + + | Weight | 109.8 kg (242 lb) | 08/08/2018 3:48 PM | | | | | PDT | | + + + + + | Height | 169.5 cm (5' 6.75") | 08/08/2018 3:48 PM | | | | | PDT | | + + + + + | Body Mass Index | 38.19 | 08/08/2018 3:48 PM | | | | | PDT | | + + + + + documented in this encounter Patient Instructions Patient Instructions Melchor Gerardo MD - 08/08/2018 4:00 PM PDT Carpal Tunnel Syndrome Carpal tunnel syndrome [...] not bent back when typing. You may [id number]-iwasffe pain medicine to treat pain and inflammation, [...] becomes swollen or weak Date Last Reviewed: 08/21/[id number] [employer]. [address] [place] [address]. All righ ts reserved. This information is not intended as a substitute for professional medical care. Always follow your healthcare professional's instructions. documented in this encounter Progress Notes Melchor Gerardo MD - 08/08/2018 4:00 PM PDTFormatting of this note might be dif ferent from the original. [facility] PRE-OPERATIVE VISIT Pt. Name/Age/: Tamara Serrano 52 y.o. 1965 Primary Care Physician: Alejandro Yen Chief Complaint/Reason for Visit: Pre-op Exam (right carpal tunnel release dos08/09/18) and Wrist Pain History of Present Illness: The patient is a pleasant 52 y.o. female who presents with for a pre-operative visit prior to right carpal tunnel release. She has intermittent numbness and tingling in the right finney d. She also has symptoms in the left hand. She recently had surgery on her trigger thumb o n the right hand. She states that that got infected and she had to go on antibiotics. She has a scab over that area today. However it otherwise appears normal to her. She continues to use a brace with some relief. She failed anti-inflammatories. She wishes to proceed wi th surgery to obtain long-term relief. Past Medical History: Past Medical History: Diagnosis [...] by mouth four times a day 0 ergocalciferol (VITAMIN D-2) 50,000 units capsule Take 50,000 Units by mouth Once a wee k. fexofenadine (RADHA) 180 mg tablet Take 180 mg by mouth Daily as needed for Allergies . fluconazole (DIFLUCAN) 150 mg tablet take 1 tablet by mouth as a single dose 0 fluticasone (FLONASE) 50 mcg/nasal spray insulin aspart [...] BLOOD GLUCOSE TEST strip TRUEPLUS LANCETS 28G [facility] ALCOHOL SWABS 70 % PADS No [...] file Highest education level: Not on file Social Needs Financial resource strain: Not on file Food insecurity - worry: Not on file Food insecurity - inability: Not on file Transportation needs - medical: Not on file Transportation needs - non-medical: Not on file Occupational History Employer: [employer] Tobacco Use Smoking status: Former Smoker Smokeless tobacco: Never Used Substance and Sexual Activity Alcohol use: No Drug use: No Sexual activity: Yes Other Topics Concern Not on file Social History Narrative Not on file Review of Systems All of these are negative unless otherwise marked Eyes: [] Double vision [] Glasses/contacts [] Failing vision Respiratory: [] Asthma/Wheezing [] Pneumonia [] Night sweats [] Shortness of breath [] Chronic cough [] Coughing up blood [] Exposure to tuberculosis Cardiovascular: [] Heart Problems [x] Hypertension [] Heart murmur [] Palpitations [] Rheumatic fever [] Phlebitis [] Chest pain [] Ankle swelling [] Leg cramps [] Racin g heart [] Skipping beats [] Blood clots Urinary Tract: [] Painful urination []Kidney Stones []Any urine leakage []Weak urine stream [] Night urination []Urine infections [] Bedwetting [] Blood in urine Ear/Nose/Throat: [] Frequent Colds [] Sinus Disease [] Nose obstruction [] Sneezing Spells [] Change in taste [] Artificial teeth [] Ears ringing [] Ear pain [] Hearing loss [] Teeth problems [] Hoarseness [] Neck swelling [] Sore throat [] Congestion [] Nosebleeds [] Nasal allergies Gastrointestinal: [] Abdominal pain [] Heartburn [] Blood from rectum [] Colitis [] Gallbladder problems [] Troubl e swallowing [] Bloated stomach [] Change in stools [] Vomiting blood [] Nausea [] Hemorrhoids [] Jaundice [ ] Hepatitis [] Diarrhea [] Constipation [] Diverticulitis Musculoskeletal: [] Physical handicaps [] Back or shoulder pain []Rheumatoid disease [] Osteoarthritis [] Joint pain [] Joint swelling []Gout [] Leg cramps at night Skin: [] Skin [...] loss [] Shooting pains Endocrine: [] Thyroid [] Diabetes Systemic: []Weight loss/gain (over 10 lbs) []Fever/chills []Fatigue [] Sleeping Difficulties [] Speech change [] Voice change Admission Weight: Weight: 109.8 kg (242 lb) BMI: Body mass index is 38.19 kg/m. Physical Examination: BP 139/81 | Pulse 92 | Temp 36.5 C (97.7 F) (Temporal) | Resp 18 | Ht 1.695 m (5' 6 .75") | Wt 109.8 kg (242 lb) | SpO2 97% | BMI 38.19 kg/m General: Alert, oriented, no acute distress HEENT: Normocephalic, atraumatic Cardiovascular: Regular rate and rhythm Respiratory: Breathing normally at a regular rate Ortho Exam Right upper extremity: Positive Alyx's compression test. Positive Tinel's at the wrist. Radial pulse 2+. Sensa tion intact to light touch in the first dorsal webspace, and the pads of the small and index fingers. Able to flex and extend the thumb at the interphalangeal joint, make an "ok" sign, adduct and abduct the fingers, and oppose the thumb to the small finger. 5 out of 5 abductor pollicis brevis strength. Diagnostic Studies: Imaging No imaging Labs- Lab Results Component Value Date NA [...] PLT 368 08/08/2018 Assessment and Plan: 1. Pre-op exam Basic Metabolic Panel PTT Platelet Count ECG 12 lead Hemoglobin XR Chest PA and Lateral Hepatic Function Panel 2. Right carpal tunnel syndrome Basic Metabolic Panel PTT Platelet Count ECG 12 lead Hemoglobin XR Chest PA and Lateral Hepatic Function Panel 3. Abnormal liver function Basic Metabolic Panel PTT Platelet Count Hemoglobin Hepatic Function Panel 4. Mixed hyperlipidemia ECG 12 lead Hemoglobin 5. Asthma, unspecified asthma severity, unspecified whether complicated, unspecified whethe r persistent XR Chest PA and Lateral 6. Benign essential hypertension ECG 12 lead Hemoglobin The patient is a pleasant 52 y.o. female who presents for a pre-operative visit regarding h er upcoming right carpal tunnel release. Treatment options were discussed with the patient i ncluding non-operative treatment modalities. Considering the nature of the patient's conditi on, decision was made to proceed with surgery. Risks, benefits and alternatives to surgery w ere discussed. The patient agreed to proceed with surgery. Special risks to the procedure in clude median nerve injury or damage to 1 of its branches, infection, pillar pain, and the po tential need for further surgery and these were discussed with the patient. This risks of a nesthesia were discussed. She wished to undergo the surgery and all of her questions were a nswered. Follow-up: 2 weeks after surgery with no x-ray Portions of this report were transcribed using voice recognition software. Every effort wa s made to ensure accuracy; however, inadvertent computerized operations vocational instructor errors may be pre sent. I appreciate [...] | + +--------+ + + + | ECG 12 LEAD | Routin | 08/08/2018 | Right carpal | Results for this | | | e | 3:56 PM | tunnel syndrome | procedure are in the | | | | PDT | Pre-op exam Mixed | results section. | | | | | hyperlipidemia | | | | | | Benign essential | | | | | | hypertension | | + +--------+ + + + documented in this encounter Results Hepatic Function Panel (08/08/2018 4:33 PM PDT) + +---------+ + + + | Component | Value | Ref Range | Performed | Pathologist | | | | | At | Signature | + +---------+ + + + | Bilirubin | 0.7 | 0.3 - 1.2 mg/dL | [facility] | | | Total | | | [facility] | | | | | | [facility] | | | | | [facility] - | | | | | | LAB[facility]ATORY | | + +---------+ + + + | Total | 6.1 | 5.7 - 8.2 g/dL | [facility] | | | Protein | | | [facility] | | | | | | [facility] | | | | | | C[facility] - | | | | | | LABORATORY | | + +---------+ + + + | Albumin | 4.1 | 3.2 - 4.8 g/dL | [facility] | | | | | | [facility] | | | | | | [facility] | | | | | | [facility] - | | | | | | LABORATORY | | + +---------+ + + + | AST | 94 (H) | 0 - 34 U/L | [facility] | | | | | | [facility] | | | | | | [facility] | | | | | | [facility] - | | | | | | LAB[facility]ATORY | | + +---------+ + + + | ALT | 105 (H) | 10 - 49 U/L | [facility] | | | [facility] | [facility] | | | | | [facility] - | | | | | | [facility]AT[facility] | | + +---------+ + + + | Alkaline | 164 (H) | 46 - 116 U/L | [facility] | | | Phosphatase | | | [facility] | | | | | | [facility] | | | | | | [facility] - | | | | | | LABORATORY | | + +---------+ + + + | Globulin | 2.0 (L) | 2.1 - 3.8 g/dL | [facility] | | | | | | [facility] | | | | | | [facility] | | | | | | [facility] - | | | | | | LAB[facility]ATORY | | + +---------+ + + + | Albumin/Danyell | 2.1 (H) | 0.8 - 1.9 | [facility] | | | bulin Ratio | | | [facility] | | | | | | [facility] | | | | | | [facility] - | | | | | | LABORATORY | | + +---------+ + + + | Bilirubin, | 0.20 | 0.00 - 0.30 | [facility] | | | Direct | | mg/dl | [facility] | | | | | | [facility] | | | | | | [facility] - | | | | | | LABORATORY | | + +---------+ + + + + + | Specimen | + + | Blood | + + + + + + + | Performing | Address | City/State/Zipcode | Phone Number | | Organization | | | | + + + + + | [facility] | [address] | [place] | [phone] | | [facility] | | [address] | | | - LABORATORY | | | | + + + + + Hemoglobin (08/08/2018 4:33 PM PDT) + +-------+ + + + | Component | Value | Ref Range | Performed | Pathologist | | | | | At | Signature | + +-------+ + + + | Hemoglobin | 14.0 | 11.5 - 16.0 | [facility] | | | | | g/dL | [facility] | | | | | | MEDICAL | | | | | | CENTER - | | | | | | LABORATORY | | + +-------+ + + + + + | Specimen | + + | Blood | + + + + + + + | Performing | Address | City/State/Zipcode | Phone Number | | Organization | | | | + + + + + | [facility] | [address] | [place] | [phone] | | [facility] | | [address] | | | - LABORATORY | | | | + + + + + Platelet Count (08/08/2018 4:33 PM PDT) + +-------+ + + + | Component | Value | Ref Range | Performed | Pathologist | | | | | At | Signature | + +-------+ + + + | Platelet | 368 | 140 - 440 K/uL | [facility] | | | Count | | | [facility] | | | | | | MEDICAL | | | | | | CENTER - | | | | | | LABORATORY | | + +-------+ + + + | MPV | 9.0 | 6.5 - 12.4 fL | [facility] | | | | | | [facility] | | | | | | MEDICAL | | | | | | CENTER - | | | | | | LABORATORY | | + +-------+ + + + + + | Specimen | + + | Blood | + + + + + + + | Performing | Address | City/State/Zipcode | Phone Number | | Organization | | | | + + + + + | [facility] | [address] | [place] | [phone] | | [facility] | | [address] | | | - LABORATORY | | | | + + + + + PTT (08/08/2018 4:33 PM PDT) + +-------+ + + + | Component | Value | Ref Range | Performed | Pathologist | | | | | At | Signature | + +-------+ + + + | aPTT | 29 | 22 - 36 seconds | [facility] | | | | | | [facility] | | | | | | [facility] | | | | | | CENTER - | | | | | | LABORATORY | | + +-------+ + + + + + | Specimen | + + | Blood | + + + + + + + | Performing | Address | City/State/Zipcode | Phone Number | | Organization | | | | + + + + + | [facility] | [address] | [place] | [phone] | | [facility] | | [address] | | | - LABORATORY | | | | + + + + + Basic Metabolic Panel (08/08/2018 4:33 PM PDT) + + + + + + | Component | Value | Ref Range | Performed | Pathologist | | | | | At | Signature | + + + + + + | Na | 136 | 136 - 145 | [facility] | | | | | mmol/L | [facility] | | | | | | MEDICAL | | | | | | CENTER - | | | | | | LABORATORY | | + + + + + + | K | 4.0 | 3.4 - 5.1 | [facility] | | | | | mmol/L | [facility] | | | | | | MEDICAL | | | | | | CENTER - | | | | | | LABORATORY | | + + + + + + | Cl | 101 | 98 - 107 mmol/L | [facility] | | | | | | [facility] | | | | | | MEDICAL | | | | | | CENTER - | | | | | | LABORATORY | | + + + + + + | CO2 | 30 | 20 - 31 mmol/L | [facility] | | | | | | [facility] | | | | | | MED[facility] | | | | | | CENTER - | | | | | | LABORATORY | | + + + + + + | Anion Gap | 5 | 3 - 16 mmol/L | [facility] | | | | | | [facility] | | | | | | MEDICAL | | | | | | CENTER - | | | | | | LABORATORY | | + + + + + + | Glucose | 277 (H) | 60 - 106 mg/dL | [facility] | | | | | | [facility] | | | | | | MEDICAL | | | | | | CENTER - | | | | | | LABORATORY | | + + + + + + | BUN | 12 | 9 - 23 mg/dL | [facility] | | | | | | [facility] | | | | | | MEDICAL | | | | | | CENTER - | | | | | | LABORATORY | | + + + + + + | Creatinine | 0.80 | 0.55 - 1.02 | [facility] | | | | | mg/dL | [facility] | | | | | | MEDICAL | | | | | | CENTER - | | | | | | LABORATORY | | + + + + + + | eGFR if not | >60Comment: GLOMERULAR | >=60 | [facility] | | | | FILTRATION | mL/min/1.73m2 | [facility] | | | [place] | RATE,ESTIMATED | | MEDICAL | | | | mL/min/1.62f5Yrwo than | | CENTER - | | | | 60 Chronic kidney | | LABORATORY | | | | disease,if found over a | | | | | | 3-month period.Less than | | | | | | 15 Kidney failureFor | | | | | | | | | | | | Americans,multiply the | | | | | | calculated GFR by 1.21. | | | | | | | | | | + + + + + + | Calcium | 9.4 | 8.7 - 10.4 | [facility] | | | | | mg/dL | [facility] | | | | | | MEDICAL | | | | | | CENTER - | | | | | | LABORATORY | | + + + + + + | BUN/Creatin | 15.0 | | [facility] | | | ine Ratio | | | [facility] | | | | | | MEDICAL | | | | | | CENTER - | | | | | | LABORATORY | | + + + + + + + + | Specimen | + + | Blood | + + + + + + + | Performing | Address | City/State/Zipcode | Phone Number | | Organization | | | | + + + + + | [facility] | [address] | [place] | [phone] | | [facility] | | [address] | | | - LABORATORY | | | | + + + + + XR Chest PA and Lateral (08/08/2018 4:28 [...] | Procedure Note | + + | Giovanny Babcock Results In - 08/08/2018 11:01 PM PDT [...] | | | + +---------+ + + ECG 12 lead (08/08/2018 3:56 PM PDT) + + + + + + | Component | Value | Ref Range | Performed | Pathologist | | | | | At | Signature | + + + + + + | VENTRICULAR | 86 | BPM | [facility] | | | RATE EKG | | | | | + + + + + + | ATRIAL RATE | 86 | BPM | [facility] | | + + + + + + | P-R | 140 | ms | [facility] | | | INTERVAL | | | | | + + + + + + | QRS | 92 | ms | [facility] | | | DURATION | | | | | + + + + + + | Q-T | 384 | ms | [facility] | | | INTERVAL | | | | | + + + + + + | Q-T | 459 | ms | [facility] | | | INTERVAL | | | | | | (CORRECTED) | | | | | + + + + + + | P WAVE AXIS | 26 | degrees | [facility] | | + + + + + + | QRS AXIS | 31 | degrees | [facility] | | + + + + + + | T AXIS | 40 | degrees | [facility] | | + + + + + + | INTERPRETAT | Normal sinus | | [facility] | | | ION TEXT | rhythmNormal ECGNo | | | | | | previous ECGs | | | | | | availableConfirmed by | | | | | | DAILY GAFFNEY MD ([id number]) | | | | | | on 08/09/2018 6:41:00 AM | | | | + + + + + + + + | Specimen | + + | | + + + + + | Narrative | Performed At | + + + | | | + + + + +---------+ + + | Performing | Address | City/State/Zipcode | Phone Number | | Organization | | | | + +---------+ + + | [facility] | | | | + +---------+ + + documented in this encounter Visit Diagnoses + + | Diagnosis | + + | Pre-op exam - Primary Preoperative examination, unspecified | + + | Right carpal tunnel syndrome Carpal tunnel syndrome | + + | Abnormal liver function Unspecified disorder of liver | + + | Mixed hyperlipidemia | + + | Asthma, unspecified asthma severity, unspecified whether complicated, unspecified | | whether persistent | + + | Benign essential hypertension Essential hypertension, benign | + + documented in this encounter
--- OUTSIDE RECORDS SUMMARY | ~2019-10-15 | XMS | Encounter Summary ---
Demographics + + + | Address | [address] | | | [place] [address] | + + + | Home Phone | | + + + | Preferred Language | Unknown | + + + | Marital Status | | + + + | Rastafari Affiliation | 1041 | + + + | Race | Unknown | + + + | Ethnic Group | Unknown | + + + Author + + + | Author | [facility] | | | and [place] | + + + | Organization | [facility] | | | [...] Team Providers + +------+ + | Care Personal Investment Adviser Name | Role | Phone | + +------+ + | Alejandro Yen DO | PCP | | + +------+ + Encounter Details +--------+ + + + + | Date | Type | Department | Care Team | Description | +--------+ + + + + | 01/22/ | Hospital | [facility] | Melchor Gerardo | Left knee pain, | | 2019 | Encounter | [facility] | [address] | unspecified | | | | [address] | [place] | chronicity | | | | [place] | [place] [address] | | | | | [address] | [phone] | | | | | [phone] | | | +--------+ + + + [...] 1 tablet by | | 0 | //20 | | | (DIFLUCAN) 150 mg | mouth as a single | | | 19 | | | tablet | dose | | | | | + + + +---------+ + + | fluticasone | | | 0 | 11/27/20 | | | (FLONASE) 50 | | [...] NOVOLOG FLEXPEN | | | 0 | //20 | | | 100 UNIT/ML | | [...] + +--------+ + + + | XR KNEE LEFT 4 + VW | Routin | 01/22/2019 | Left knee pain, | Results for this | | | e | 3:04 PM | unspecified | procedure are in the | | | | PDT | chronicity | results section. | + +--------+ + + + documented in this encounter Results XR Knee Left 4 + Vw (01/22/2019 3:04 PM PDT) + + | Specimen | + + | | + + + + + | Narrative | Performed At | + + + | XR KNEE LEFT 4 + VW 01/22/2019 3:04 PM HISTORY: Left Knee pain. | [facility] | | COMPARISON: None. FINDINGS: The left knee shows changes of | | | previous ACL repair with screws of the distal femur and proximal | | | tibia along with tunneling procedure. There is severe medial | | | compartment joint space loss with wlrc-ss-glxk contact. Mild lateral | | | shifting of the tibia is observed relative to the femur. Mild lateral | | | patellofemoral compartment joint space loss is present. Moderate | | | osteophytes are present of all compartments. Bone mineralization is | | | normal. There is no joint effusion. Soft tissues are unremarkable. | | | Incidental evaluation of the right knee demonstrates mild to | | | moderate medial compartment joint loss. IMPRESSION - Advanced | | | degenerative changes of the left knee. Dictated and Signed by: | | | Scot Gonzalez MD Electronically signed: 01/22/2019 3:27 PM | | + + + + + | Procedure Note | + + | Sadiq, Rad Results In - 01/22/2019 3:30 PM PDT XR KNEE LEFT 4 + VW 01/22/2019 3:04 PM | | | | HISTORY: Left Knee pain. | | | | COMPARISON: None. | | | | FINDINGS: | | The left knee shows changes of previous ACL repair with screws of the distal | | femur and proximal tibia along with tunneling procedure. There is severe medial | | compartment joint space loss with fgha-ob-idon contact. Mild lateral shifting of | | the tibia is observed relative to the femur. Mild lateral patellofemoral | | compartment joint space loss is present. Moderate osteophytes are present of all | | compartments. Bone mineralization is normal. There is no joint effusion. Soft | | tissues are unremarkable. | | | | Incidental evaluation of the right knee demonstrates mild to moderate medial | | compartment joint loss. | | | | IMPRESSION - | | Advanced degenerative changes of the left knee. | | | | Dictated and Signed by: Scot Gonzalez MD | | Electronically signed: 01/22/2019 3:27 PM | + + + +---------+ + + | Performing | Address | City/State/Zipcode | Phone Number | | Organization | | | | + +---------+ + + | [facility] | | | | + +---------+ + + documented in this encounter Visit Diagnoses + + | Diagnosis | + + | Left knee pain, unspecified chronicity | + + documented in this encounter"
--- OUTSIDE RECORDS SUMMARY | ~2019-10-15 | XMS | Encounter Summary ---
Demographics + + + | Address | [address] | | | [place] [address] | + + + | Home Phone | | + + + | Preferred Language | Unknown | + + + | Marital Status | | + + + | Yazidi Affiliation | 1041 | + + + | Race | Unknown | + + + | Ethnic Group | Unknown | + + + Author + + + | Author | [facility] | | | and [place] | + + + | Organization | [facility] | | [...] Team Providers + +------+ + | Care Maple Sugar Maker Name | Role | Phone | + +------+ + | Alejandro Yen DO | PCP | | + +------+ + Reason for Visit + +--------+ + | Reason | Onset | Comments | | | Date | | + +--------+ + | Referral | 02/12/ | checking on referral sent 02/04 | | | 2018 | | + +--------+ + Encounter Details +--------+ + + + + | Date | Type | Department | Care Team | Description | +--------+ + + + + | 02/12/ | Telephone | [facility] | Davon Smith | Referral (checking | | 2019 | | [address] | [address] | on referral sent | | | | [address] | [address] | 02/04) | | | | [place], [place] | [place] [address] | | | | | [address] | [phone] | | | | | [phone] | | | +--------+ + + + [...] Notes Telephone Encounter - Yelitza Ness - 02/12/2019 9:44 AM [facility], is calling regarding Referral (checking on referral sent 02/04) and would like a call back. Additional Call Details: Checking on referral sent 02/04 If this is a symptom based call, was patient offered triage? Not Applicable If this is a symptom based call and you were unable to immediately transfer the call to a josé miguel berry shaper set up operator was caller made aware that if at any time she feels it is an emergency they sh ould call 911 or go to the nearest emergency room? not applicable documented in this encounter Plan of Treatment Not on filedocumented as of this encounter Visit Diagnoses Not on filedocumented in this encounter"
--- OUTSIDE RECORDS SUMMARY | ~2019-10-15 | XMS | Encounter Summary ---
Demographics + + + | Address | [address] | | | [place] [address] | + + + | Home Phone | | + + + | Preferred Language | Unknown | + + + | Marital Status | | + + + | Congregational Affiliation | 1041 | + + + | Race | Unknown | + + + | Ethnic Group | Unknown | + + + Author + + + | Author | [facility] | | | and Esteban | + + + | Organization | [facility] | | [...] Team Providers + +------+ + | Care Physician Assistant Name | Role | Phone | + +------+ + | Alejandro Yen DO | PCP | | + +------+ + Reason for Visit Auth/Cert +--------+--------+ + + + + | Status | Reason | Specialty | Diagnoses / | Referred By | Referred To | | | | | Procedures | Contact | Contact | +--------+--------+ + + + + | | | | Diagnoses | | Akin, | | | | | Carpal | | Melchor | | | | | tunnel | | MD Ar | | | | | syndrome of | | [address] | | | | | right wrist | | [address] | | | | | right | | [place] | | | | | carpal | | [phone] | | | | | tunnel | | Phone: | | | | | synddrome | | [phone] | | | | | Procedures | | Fax: | | | | | [place] [facility] | | [phone] | | | | | MEDIAN | | | | | | | N/CARPAL | | | | | | | TUNNEL SURG | | | | | | | RIGHT | | | | | | | RELEASE | | | | | | | CARPAL | | | | | | | TUNNEL | | | +--------+--------+ + + + + Encounter Details +--------+---------+ + + + | Date | Type | Department | Care Team | Description | +--------+---------+ + + + | 08/09/ | Surgery | [facility] | Melchor Gerardo | RIGHT RELEASE CARPAL | | 2019 | | [facility] | MD [address] | TUNNEL | | | | [address] | [address] | | | | | [place] | [place] [phone] | | | | | [address] | [phone] | | | | | [phone] | | | +--------+---------+ + + + [...] + + + | Blood Pressure | 137/75 | 08/09/2018 11:00 AM | | | | | PDT | | + + + + + | Pulse | 83 | 08/09/2018 11:10 AM | | | | | PDT | | + + + + + | Temperature | 36.4 C (97.5 F) | 08/09/2018 10:45 AM | | | | | PDT | | + + + + + | Respiratory Rate | 16 | 08/09/2018 11:00 AM | | | | | PDT | | + + + + + | Oxygen Saturation | 95% | 08/09/2018 11:10 AM | | | | | PDT | | + + + + + | Inhaled Oxygen | - | - | | | Concentration | | | | + + + + + | Weight | 108.3 kg (238 lb | 08/09/2018 9:31 AM | | | | 12.1 oz) | PDT | | + + + + + | Height | 167.6 cm (5' 6") | 08/09/2018 9:31 AM | | | | | PDT | | + + + + + | Body Mass Index | 38.54 | 08/09/2018 9:31 AM | | | | | PDT | | + + + + + documented in this encounter Discharge Summaries Melchor Gerardo MD - 08/09/2018 10:49 AM PDTFormatting of this note might be dif ferent from the original. DISCHARGE SUMMARY Pt. Name/Age/: Tamara Serrano 52 y.o. 1965 Date of Admission: 08/09/2018 Date of Discharge: 08/09/2018 Admitting Physician: Melchor Kumar PCP: Alejandro Yen Discharging Physician: Melchor Gerardo Consultants: None Primary Discharge Dx: Right carpal tunnel Patient Active Problem List Diagnosis Right carpal tunnel syndrome Trigger thumb of right hand Left carpal tunnel syndrome Abnormal liver function Diabetes mellitus, type II, insulin dependent Mixed hyperlipidemia Asthma, persistent Hypertension REZA Inhibitors - Daily use Obesity, Class II, BMI 35-39.9 Secondary Discharge Dx: Pertinent Diagnostic Info/Data: Procedures: Right carpal tunnel release Reason for Admission (Brief): The patient was brought to the hospital for an outpatient pr ocedure. Hospital Course, including Complications: The patient tolerated the procedure well. There were no complications. Once the patient met criteria for discharge home, the patient was dis charged. Medications Reconciled upon Discharge are: Discharge Medications New Medications Details HYDROcodone-acetaminophen 5-325 mg per tablet Take 1-2 tablets by mouth every 4 hours as needed for Pain. aka: NORCO Unchanged Medications Details B-D ULTRAFINE III SHORT PEN 31 gauge x 8 mm Generic drug: insulin pen needle celecoxib 200 mg capsule Take 200 mg by mouth Twice daily as needed for Pain (Arthritis). aka: CELEBREX clindamycin 300 MG capsule take 1 capsule by mouth four times a day aka: CLEOCIN ergocalciferol 50,000 units capsule Take 50,000 Units by mouth Once a week. aka: VITAMIN D-2 fexofenadine 180 mg tablet Take 180 mg by mouth Daily as needed for Allergies. aka: RADHA fluconazole 150 mg tablet take 1 tablet by mouth as a single dose aka: DIFLUCAN fluticasone 50 mcg/nasal spray aka: FLONASE insulin aspart 100 units/mL injection Inject 30 Units under the skin 3 times daily (before meals). aka: novoLOG NOVOLOG FLEXPEN 100 units/mL injection pen Generic drug: insulin aspart insulin glargine 100 units/mL injection (pen) Inject 75 Units under the skin nightly. aka: LANTUS SOLOSTAR lisinopril 10 mg tablet Take 10 mg by mouth Daily. aka: PRINIVIL, ZESTRIL metaxalone 800 mg tablet Take 800 mg by mouth 4 times daily. aka: SKELAXIN montelukast 10 mg tablet Take 10 mg by mouth nightly. aka: SINGULAIR olopatadine 0.1% ophthalmic solution Place 1 drop into both eyes 2 times daily. aka: PATANOL PROAIR HFA 90 mcg/puff inhaler Generic drug: albuterol Inhale 2 puffs into the lungs every 6 hours as needed for Shortness of Breath. TRUE METRIX BLOOD GLUCOSE TEST strip Generic drug: glucose blood test strips TRUEPLUS LANCETS 28G Replaced By [facility] ULTICARE ALCOHOL SWABS 70 % Pads Immunization History Administered Date(s) Administered HEP A, 2 DOSE (ADULT) 08/06/2013, 03/02/2014 HEP B, 3 DOSE (ADULT) 02/15/1994, 03/20/1994, 11/15/1994 INFLUENAZ PF TRIVALENT INTRADERMAL 05/02/2012 INFLUENZA PF QUAD(PED/ADOL/ADULT),PSKT or VIAL 12/22/2015, 02/08/2017, 01/21/2018 INFLUENZA PF TRIVALENT(PED/ADOL/ADULT), PSKT 02/18/2015 INFLUENZA QUADR W/PRES (PED/ADOL/ADULT) MULTIDOSE 01/21/2014 PNEUMOCOCCAL CONJUGATE 13-VALENT (PCV13) 05/02/2012 TDAP, (ADOL/ADULT) 11/01/2011 Reason for major medication changes in hospital: Post-operative pain Condition on Discharge: Stable Vital Signs: Temp: 36.4 C (97.5 F) BP: 138/65 Pulse: 92 Resp: 16 SpO2: 96 % Min/Max Temp past 24 hours:Temp Av.4 C (97.6 F) Min: 36.4 C (97.5 F) Max: 3 6.5 C (97.7 F) Intake/Output Summary (Last 24 hours) at 08/09/2018 1049 Last data filed at 08/09/2018 1044 Gross per 24 hour Intake 650 ml Output 5 ml Net 645 ml Last Wt. Before discharge: Weight: 108.3 kg (238 lb 12.1 oz) Pending study results on DC: None Disposition: Home Follow-Up Plans: Follow-up with: Dr. Gerardo in 2 weeks Diet: Regular Activity: Discharge instructions: - Activity: Work on moving your fingers. Do not try to move your wrist. No lifting with you r hand. - Dressings: Please keep the dressing clean, dry and in place. You have sutures underneath the dressing which will come out at your post-operative visit about 2 weeks after surgery. - Diet: Please resume your usual diet. - Follow up: You will have a follow-up appointment in about 2 weeks. Please call [phone] with any questions or concerns. - Please seek medical attention for any of the following: Temperature 101.4 degrees Fahrenh eit, pain uncontrolled by medication, drainage or foul odor from incision, increasing bruisi ng or discoloration, chest pain, shortness of breath, nausea, vomiting, or any other symptom s, numbness or abnormal color in your extremities - FOR YOUR SAFETY: Remember the prescription medicine given during your surgery and for asif n may affect your balance and ability to make decisions. After being discharged from the [facility], remember not to do the following: drive a car, operate machinery or power tools, drin k alcohol, make important decisions, or do anything alone that requires balance or coordinat ion (i.e., walking alone to the bathroom, and walking up and down stairs) - It is expected that you your pain will gradually improve and that you will need less pres cription pain medications as time goes by, please wean yourself gradually from the prescript ion pain medication. -Work on elevating your hand. Keeping it at or above the level of your heart will help you control post-operative swelling. -You may ice the hand. Please place a towel or other cloth between the dressing and the finney d to keep the dressing and incision from getting wet. -If you decide to change the dressing before your post-operative visit, please keep the wou nd covered until you come back. Leave any yellow gauze (Xeroform) in place and do not try to peel it up. The patient's narcotic history for the least year was checked using the [place] Prescrip tion Monitoring Program. Decision was made to prescribe narcotics due to the patient's acute pain. No discharge procedures on file. Electronically signed by: Melchor Gerardo, 08/09/2018 10:49 [facility] documented in this encounter Discharge Instructions Instructions Melchor Gerardo MD - 08/09/2018Discharge instructions: - Activity: Work on moving your fingers. Do not try to move your wrist. No lifting with you r hand. - Dressings: Please keep the dressing clean, dry and in place. You have sutures underneath the dressing which will come out at your post-operative visit about 2 weeks after surgery. - Diet: Please resume your usual diet. - Follow up: You will have a follow-up appointment in about 2 weeks. Please call with any questions or concerns. - Please seek medical attention for any of the following: Temperature 101.4 degrees Fahrenh eit, pain uncontrolled by medication, drainage or foul odor from incision, increasing bruisi ng or discoloration, chest pain, shortness of breath, nausea, vomiting, or any other symptom s, numbness or abnormal color in your extremities - FOR YOUR SAFETY: Remember the prescription medicine given during your surgery and for asif n may affect your balance and ability to make decisions. After being discharged from the [facility], remember not to do the following: drive a car, operate machinery or power tools, drin k alcohol, make important decisions, or do anything alone that requires balance or coordinat ion (i.e., walking alone to the bathroom, and walking up and down stairs) - It is expected that you your pain will gradually improve and that you will need less pres cription pain medications as time goes by, please wean yourself gradually from the prescript ion pain medication. -Work on elevating your hand. Keeping it at or above the level of your heart will help you control post-operative swelling. -You may ice the hand. Please place a towel or other cloth between the dressing and the finney d to keep the dressing and incision from getting wet. -If you decide to change the dressing before your post-operative visit, please keep the wou nd covered until you come back (may remove dressing during showers and hand washing, but the n replace) documented in this encounter Medications at Time of Discharge [...] + + documented as of this encounter H&P Notes Melchor Gerardo MD - 08/09/2018 10:03 AM PDTSURGICAL INTERIM HISTORY & PHYSICAL UPDATE Pt. Name/Age/: Tamara Serrano 52 y.o. 1965 Date of admission: 08/09/2018 The current H&P was reviewed. The patient was reexamined. Re-evaluation of the patient co nfirms the necessity for the scheduled procedure. No change has occurred in the patient s condition since the H&P was completed less than 30 days ago. VERIFICATION OF CONSENT (PARQ) The patient was counseled regarding the procedure, its indications, risks, potential compli cations and alternatives. Any questions were answered. Consent was obtained. Electronically signed by: Melchor Gerardo MD, 08/09/2018 10:03 [facility] riddy, [facility] lyndsey Joyner MD - 08/08/2018 4:00 PM PDT [facility] PRE-OPERATIVE VISIT Pt. Name/Age/: Tamara Serrano 52 [...] non-medical: Not on file Occupational History Employer: [employer] Tobacco Use Smoking status: Former Smoker Smokeless [...] made to ensure accuracy; however, inadvertent computerized integration engineer errors may be pre sent. I appreciate the opportunity to help with the management of this patient. Melchor Gerardo MD documented in this encounter Miscellaneous Notes Op Note - Melchor Gerardo MD - 08/09/2018 10:46 AM PDTNAME: Tamara donaldson DATE OF : 1965 DATE OF SERVICE: 08/09/2018 PREOPERATIVE DIAGNOSIS: Right Carpal Tunnel Syndrome POSTOPERATIVE DIAGNOSIS: Same OPERATION PERFORMED: Right Carpal Tunnel Release SURGEON: Melchor Gerardo MD FOOD AND BEVERAGE COORDINATOR: None ANESTHESIA: Conscious sedation and local ESTIMATED BLOOD LOSS: 5 mL TOURNIQUET TIME: 5 minutes at 250 mmHg. DRAINS: None. CULTURES: None. SPECIMENS: None. COMPLICATIONS: None. OPERATIVE FINDINGS: Consistent with diagnosis IMPLANTS: None INDICATIONS: Tamara Serrano is a 52 y.o. female who presents with a history of Rig ht carpal tunnel syndrome. The patient failed non-operative treatment including bracing. She has symptoms in both hands, but her right is worse. She has been dealing with it for a coup le of years. The risks, benefits and alternatives to surgery were discussed with the patient . All of her questions were answered. DESCRIPTION OF PROCEDURE: Tamara was seen in the Preoperative Holding Area. The patient's Right wrist was marked in the standard fashion. All of the patient's questions were answere d at that time. Anesthesia evaluated the patient. Following this, the patient was taken back to the Operati ng Room and we placed a hand table was placed next to the patient. The patient was then admi nistered conscious sedation by the Anesthesia Team. The patient was then prepped and draped in the standard, sterile fashion. 10 cc's of 2% lid ocaine was used to numb the palm. A 4 centimeter incision was made in line with the 3rd webs pace space starting at Benjamin's line and going proximally almost to the wrist crease. Sharp dissection was carried down through the skin and palmar fascia. Retraction was used to expos e the transverse carpal ligament. This was dissected with a 15 blade until the nerve could b e seen. At that point, scissors were used to incise the transverse carpal ligament to the fa t pad of the palm. Dissection was than carried proximally. The forearm fascia was released w here it was visible. The transverse carpal ligament was seen to retract. The nerve was seen and felt to be decompressed. We then irrigated the wound thoroughly. 3-0 nylon was used to c lose the skin in an interrupted, vertical mattress fashion. Xeroform, 4x4s, Keren, and an AC E were placed on the hand. The patient was then taken to the Post Anesthesia Care Unit in stable condition. POSTOPERATIVE INSTRUCTIONS: Discharge instructions: - Activity: Work on moving your fingers. Do not try to move your wrist. No lifting with you r hand. - Dressings: Please keep the dressing clean, dry and in place. You have sutures underneath the dressing which will come out at your post-operative visit about 2 weeks after surgery. - Diet: Please resume your usual diet. - Follow up: You will have a follow-up appointment in about 2 weeks. Please call with any questions or concerns. - Please seek medical attention for any of the following: Temperature 101.4 degrees Fahrenh eit, pain uncontrolled by medication, drainage or foul odor from incision, increasing bruisi ng or discoloration, chest pain, shortness of breath, nausea, vomiting, or any other symptom s, numbness or abnormal color in your extremities - FOR YOUR SAFETY: Remember the prescription medicine given during your surgery and for asif n may affect your balance and ability to make decisions. After being discharged from the [facility], remember not to do the following: drive a car, operate machinery or power tools, drin k alcohol, make important decisions, or do anything alone that requires balance or coordinat ion (i.e., walking alone to the bathroom, and walking up and down stairs) - It is expected that you your pain will gradually improve and that you will need less pres cription pain medications as time goes by, please wean yourself gradually from the prescript ion pain medication. -Work on elevating your hand. Keeping it at or above the level of your heart will help you control post-operative swelling. -You may ice the hand. Please place a towel or other cloth between the dressing and the finney d to keep the dressing and incision from getting wet. -If you decide to change the dressing before your post-operative visit, please keep the wou nd covered until you come back. Leave any yellow gauze (Xeroform) in place and do not try to peel it up. documented in this encounter Plan of Treatment Not on filedocumented as of this encounter Procedures + +--------+ + + + | Procedure Name | Priori | Date/Time | Associated Diagnosis | Comments | | | ty | | | | + +--------+ + + + | RELEASE CARPAL | | 08/09/2018 | Carpal tunnel | | | TUNNEL | | 10:05 AM | syndrome of right | | | | | PDT | wrist | | + +--------+ + + + | POCT TEST, | Routin | 08/09/2018 | | Results for this | | URINE, QUAL | e | 9:54 AM | | procedure are in the | | | | PDT | | results section. | + +--------+ + + + | POC GLUCOSE | Routin | 08/09/2018 | | Results for this | | | e | 9:51 AM | | procedure are in the | | | | PDT | | results section. | + +--------+ + + + documented in this encounter Results POCT Test, Urine, QUAL (08/09/2018 9:54 AM PDT) + + + + + + | Component | Value | Ref Range | Performed | Pathologist | | | | | At | Signature | + + + + + + | | Negative | Negative | [facility] | | | Test, | | | [facility] | | | Urine, POC | | | [facility]ORE | | | | | | LABORATORY | | + + + + + + | Internal QC | Acceptable | Acceptable | [facility] | | | | | | [facility] | | | | | | CORE | | | | | | LABORATORY | | + + + + + + | Specific | | 1.010, 1.015, | [facility] | | | [place], | | 1.020, 1.025 | [facility] | | | POC | | | CORE | | | | | | LABORATORY | | + + + + + + | Lot Number | [id number] | | [facility] | | | | | | [facility] | | | | | | CORE | | | | | | LABORATORY | | + + + + + + | Expiration | 2019-09-01 | | [facility] | | | Date | | | [facility] | | | | | | CORE | | | | | | LABORATORY | | + + + + + + + + | Specimen | + + | Urine | + + + + + + + | Performing | Address | City/State/Zipcode | Phone Number | | Organization | | | | + + + + + | [facility] | [address] | [place] [address] | [phone] | | [facility] | | | | | [facility]AT[facility] | | | | + + + + + POC Glucose (08/09/2018 9:51 AM PDT) + +---------+ + + + | Component | Value | Ref Range | Performed | Pathologist | | | | | At | Signature | + +---------+ + + + | Glucose, | 292 (H) | 70 - 109 mg/dL | [facility] | | | POC | | | [facility] | | [...] | + + + + + | [facility] | [address] | [place] | [phone] | | [facility] | | [id number] | | | - LABORATORY | | | | + + + + + documented in this encounter Visit Diagnoses + + | Diagnosis | + + | Carpal tunnel syndrome of right wrist Carpal tunnel syndrome | + + documented in this encounter Administered Medications + +--------+---------+------+------+------+ | Medication Order | MAR | Action | Dose | Rate | Site | | | Action | Date | | | | + +--------+---------+------+------+------+ + +---+ | albuterol 2.5 mg/3 mL nebulizer | | | solution 2.5 mg 2.5 mg, | | | Nebulization, ONCE PRN, Wheezing, | | | Starting 08/09/18 at 1045, | | | For 1 dose, Notify anesthesia if | | | patient is wheezing and does not | | | have a history of asthma or COPD | | | or current smoking., | | | Recovery/Phase I | | + +---+ | | | + +---+ | fentaNYL (PF) injection 25-50 | | | mcg 25-50 mcg, Intravenous, | | | EVERY 5 MIN PRN, Pain, Starting | | | 08/09/18 at 1045, Maximum | | | total dose 250 mcg. PACU IV | | | Narcotic Priority: Only use | | | fentanyl for immediate post-op | | | pain (one dose) or breakthrough | | | pain when any other IV narcotics | | | ordered have been ineffective (if | | | ordered). If both morphine and | | | hydromorphone are ordered, use | | | morphine first, and use | | | hydromorphone if morphine | | | ineffective., Recovery/Phase I | | + +---+ | | | + +---+ | HYDROcodone-acetaminophen | | | (NORCO) 5-325 mg per tablet 1-2 | | | tablet 1-2 tablet, Oral, EVERY 4 | | | HOURS PRN, Pain, Starting Fri | | | 08/09/18 at 1045, If ineffective | | | use [place] 10/325 if ordered. If | | | not tolerated, use Percocet then | | | Oxycodone if ordered., | | | Post-op/Phase II | | + +---+ | | | + +---+ | HYDROmorphone (DILAUDID) | | | injection 0.2-0.5 mg 0.2-0.5 mg, | | | Intravenous, EVERY 5 MIN PRN, | | | Pain, Starting 08/09/18 at | | | 1045, Maximum total dose 4 mg. | | | PACU IV Narcotic Priority: Only | | | use fentanyl for immediate | | | post-op pain (one dose) or | | | breakthrough pain when any other | | | IV narcotics ordered have been | | | ineffective (if ordered). If | | | both morphine and hydromorphone | | | are ordered, use morphine first, | | | and use hydromorphone if morphine | | | ineffective., Recovery/Phase I | | + +---+ | | | + +---+ | ketorolac (TORADOL) injection | | | 15-30 mg 15-30 mg, Intravenous, | | | ONCE PRN, Pain, Starting Fri | | | 08/09/18 at 1045, For 1 dose, | | | Recovery/Phase I | | + +---+ | | | + +---+ + +---------+ +---+---+---+ | lactated ringers (LR) infusion | New Bag | 08/10/19 | | | | | at 10-100 mL/hr, Intravenous, | | 19 9:30 | | | | | CONTINUOUS, Starting Sun08/09/18 | | AM PDT | | | | | at 1000, TKO., Pre-op | | | | | | + +---------+ +---+---+---+ +---+---+ | | | +---+---+ + +-------+ +-------+---+ + | lidocaine 1%-EPINEPHrine | Given | 08/10/19 | 5 mLs | | Surgical | | 1:100,000 injection PRN, | | 19 10:18 | | | Site | | Starting Sun08/09/18 at 1018, | | AM PDT | | | | | Intra-op | | | | | | + +-------+ +-------+---+ + + +---+ | | | + +---+ | ondansetron (ZOFRAN ODT) | | | disintegrating tablet 4 mg 4 mg, | | | Oral, EVERY 6 HOURS PRN, Nausea, | | | Vomiting, Starting Sun08/09/18 | | | at 1045, First line agent, | | | Post-op/Phase II | | + +---+ | | | + +---+ | ondansetron (ZOFRAN) injection | | | 4 mg 4 mg, Intravenous, ONCE | | | PRN, Nausea, Starting 08/09/18 | | | at 1045, For 1 dose, | | | Recovery/Phase I | | + +---+ | | | + +---+ documented in this encounter
--- OUTSIDE RECORDS SUMMARY | ~2019-10-15 | XMS | Encounter Summary ---
Demographics + + + | Address | [address] | | | [place] [address] | + + + | Home Phone | | + + + | Preferred Language | Unknown | + + + | Marital Status | | + + + | Muslim Affiliation | 1041 | + + + | Race | Unknown | + + + | Ethnic Group | Unknown | + + + Author + + + | Author | [facility] | | | and Esteban | + + + | Organization | [facility] | | [...] Team Providers + +------+ + | Care Manager Distribution Name | Role | Phone | + +------+ + | Alejandro Yen DO | PCP | | + +------+ + Reason for Visit + + + | Reason | Comments | + + + | New Patient | | + + + | Knee Pain | Left | + + + Evaluate & Treat (Routine) +--------+--------+ + + + + | Status | Reason | Specialty | Diagnoses / | Referred By | Referred To | | | | | Procedures | Contact | Contact | +--------+--------+ + + + + | Closed | | Orthopedic | Diagnoses | Mark, | Foreign, | | | | Surgery | Left knee | EMILY Dow | Gavino Staley MD | | | | | pain | [address] | [address] | | | | | [address] | [place] | | | | | | [place], | [place], [place] | | | | | | [place] [address] | [address] Phone: | | | | | | Phone: | [phone] | | | | | | [phone] | Fax: | | | | | | Fax: | [phone] | | | | | | [phone] | | +--------+--------+ + + + + Encounter Details +--------+---------+ + + + | Date | Type | Department | Care Team | Description | +--------+---------+ + + + | 01/22/ | Office | [facility] | Melchor Gerardo | Primary | | 2019 | Visit | ORTHOPEDIC SURGERY | MD [address] | osteoarthritis of | | | | [address] [place] | [address] [place] | left knee (Primary | | | | [place], [place] | [place] [address] | Dx); s/p right | | | | [address] | [phone] | carpal tunnel | | | | [phone] | | release DOS 08/09/18 | +--------+---------+ + + + Social History [...] | 108 kg (238 lb 1.6 | 01/22/2019 3:08 PM | | | | oz) | PDT | | + + + + + | Height | 167.6 cm (5' 6") | 01/22/2019 3:08 PM | | | | | PDT | | + + + + + | Body Mass Index | 38.43 | 01/22/2019 3:08 PM | | | | | PDT | | + + + + + documented in this encounter Patient Instructions Patient Instructions Melchor Gerardo MD - 01/22/2019 3:00 PM PDTFormatting of t his note might be different from the original. Understanding Osteoarthritis of the Knee A joint is a place where two bones meet. The knee is called a hinge joint. This joint is fo rmed where the thighbone (femur) meets the shinbone (tibia). A healthy knee joint bends free ly. Knee osteoarthritis is a condition where parts of the knee joint wear out. This can lead to pain, stiffness, and limited movement. What is osteoarthritis? Every joint contains a smooth tissue called cartilage. Cartilage cushions the ends of bones and helps bones in a joint glide smoothly against each other. Knee osteoarthritis occurs wh en cartilage in the knee joint begins to break down and wear away. Bones may become exposed and rub together. The cartilage may become irritated and rough. This prevents smooth movemen t of the joint and can lead to pain. Causes of osteoarthritis of the knee Causes can include: Wear and tear from normal use over time Overuse of the knee during sports or work activities Being overweight. This increases stress on the knee joint. Misalignment of the knee joint Injury to the knee Symptoms of osteoarthritis of the knee Common symptoms include: Pain and swelling around the joint. The pain and swelling get worse with activity and be tter with rest. Grinding sound when moving the knee Reduced knee movement Knee stiffness. This is often worse first thing in the morning. Treating osteoarthritis of the knee Osteoarthritis is a long-term condition. Treatment usually focuses on managing symptoms. Tr eatment may include: Hips-hrz-abelohm or prescription medicines taken by mouth to help relieve pain and swell ing Injections of medicine into the joint to help relieve symptoms for a time A weight-loss plan for people who are overweight A plan of physical therapy and exercises to improve the strength and flexibility of the muscles around the knee Heat or cold therapy to help relieve pain and stiffness Assistive devices that help with movement, such as a cane or a walker Assistive devices that make activities of daily life easier, such as raised toilet seats or shower bars If other treatments don t do enough to relieve symptoms, you may need surgery to replace the joint. During this surgery, the damaged joint is removed. An artificial knee joint is th en put into place. This can help relieve pain and stiffness and restore movement of the knee . When to call your healthcare provider Call your healthcare provider right away if you have any of these: Fever of 100.4F (38C) or higher, or as directed Symptoms that don t get better with prescribed medicines or get worse New symptoms Date Last Reviewed: 07/01/201519992710-4163 [employer]. [address] [place] [address]. All righ ts reserved. This information is not intended as a substitute for professional medical care. Always follow your healthcare professional's instructions. documented in this encounter Progress Notes Melchor Gerardo MD - 01/22/2019 3:00 PM PDTFormatting of this note might be dif ferent from the original. [facility] HISTORY AND PHYSICAL EXAMINATION Pt. Name/Age/: Tamara Serrano 53 y.o. 1965 Primary Care Physician: Alejandro Yen Chief Complaint/Reason for Visit: New Patient and Knee Pain (Left) History of Present Illness: The patient is a pleasant 53 y.o. female who presents with history of chronic left knee asif n. Of note, I also performed a carpal tunnel release on her earlier this year on her right side. She reports that that has done well overall. She was sore for several months over th e palm but that is completely resolved. She denies any numbness or tingling on that side. With regards to her left knee, this been bothering her on and off for years. She has been getting injections into her knee at [facility] for years. She did have one injection perfo rmed by Dr. Spears. The injections usually give her a couple of months of relief. She has a history of an old ACL injury. She had this reconstructed around -. This was done in [place] through an open lateral approach. She reports that it never really did well af ter the surgery. She states that stairs and walking make her pain worse. She has not reall y found anything that makes it better other than injections. 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 She states that her pain is a 7 out of 10 at baseline and 8 out of 10 at its worst. It has been getting wor se over time. She is unable to do her normal daily activities. She does not use tobacco pr oducts. Past Medical History: Past Medical History: Diagnosis [...] 08/09/2018 Procedure: RIGHT RELEASE CARPAL TUNNEL; Surgeon: Melchro Gerardo MD; Location: [facility] MAIN OR KNEE SURGERY Bilateral Allergies: [...] dose 0 fluticasone (FLONASE) 50 mcg/nasal spray HYDROcodone-acetaminophen (NORCO) 5-325 mg per tablet Take [...] BLOOD GLUCOSE TEST strip TRUEPLUS LANCETS 28G [facility] ULTICARE ALCOHOL SWABS 70 % PADS Current Facility-Administered Medications Medication Dose Route Frequency Provider Last Rate Last Dose triamcinolone acetonide (KENALOG-40) 40 mg/mL injection 40 mg 40 mg Intra-articular On ce Melchor Gerardo MD Family History: Family History Problem Relation Age [...] non-medical: Not on file Occupational History Employer: [employer] Tobacco Use Smoking status: Former Smoker Smokeless tobacco: Never Used Substance and Sexual Activity Alcohol use: No Drug use: No Sexual activity: Yes Other Topics Concern Not on file Social History Narrative Not on file Review of Systems View of systems positive for diabetes and joint pain and osteoarthritis. She states that h er last A1c was 11.0 Admission Weight: Weight: 108 kg (238 lb 1.6 oz) BMI: Body mass index is 38.43 kg/m . Physical Examination: Ht 1.676 m (5' 6") | Wt 108 kg (238 lb 1.6 oz) | BMI 38.43 kg/m General: Alert, oriented, no acute distress HEENT: Normocephalic, atraumatic Cardiovascular: Regular rate and rhythm Respiratory: Breathing normally at a regular rate Ortho Exam Right upper extremity: Radial pulse 2+. Sensation intact to light touch in the first dorsal webspace, and the pads of the small and index fingers. Able to flex and extend the thumb at the interphalangeal alana int, make an "ok" sign, adduct and abduct the fingers, and oppose the thumb to the small fin beny. Nontender over the palm. Her incision is clean, dry, and intact and the wound has matured well. She has 60 degrees of wrist flexion, 60 degrees of wrist extension, 15 degrees of rad ial deviation, and 35 degrees of ulnar deviation. This is symmetric to her opposite side. Also has a well-healed wound from a right trigger thumb release. Diagnostic Studies: Imaging 4 views of the left knee obtained today demonstrate severe osteoarthrosis of the left knee. There is almost kjlu-kt-uzqn contact in the medial compartment. There is hardware consist ent with an old ACL reconstruction. There are 2 screws. One is in the femur and one in the tibia. Labs- Lab Results Component Value Date NA [...] PLT 368 08/08/2018 Assessment and Plan: 1. Primary osteoarthritis of left knee XR Knee Left 4 + Vw triamcinolone acetonide (KENALOG-40) 40 mg/mL injection 40 mg 2. s/p right carpal tunnel release DOS 08/09/18 The patient is a pleasant 53 y.o. female who presents with posttraumatic left knee osteoart hrosis. Treatment options were discussed with the patient including non-operative treatment modalities. Considering the nature of the patient's condition, decision was made to proceed with a left knee steroid injection. She would like to try 1 of the Synvisc type injections but we cannot get that approved today. We will work on getting that approved for a day. She has had a couple of months of relief in the past generally from her steroid inje ctions and would like to try that again. We will do that today. We will see her back as ne eded at this point. We did talk about potentially doing a total knee arthroplasty. She would like to do that i n September of next year possibly. We talked about the need to bring her A1c down. At a minimum , would need to be under 8.0. Ideally, it would be under 7.0. She is aware of that. Follow-up: Return if symptoms worsen or fail to improve. with no x-ray Portions of this report were transcribed using voice recognition software. Every effort wa s made to ensure accuracy; however, inadvertent computerized freelance digital project manager errors may be pre sent. I appreciate the opportunity to help with the management of this patient. Melchor Gerardo MD documented in this encounter Plan of Treatment Not on filedocumented as of this encounter Results XR Knee Left 4 [...] | | compartment joint space loss with retn-lv-xell contact. Mild lateral | | | shifting [...] | | compartment joint space loss with qpnt-bn-mqqr contact. Mild lateral shifting of | | [...] + | Diagnosis | + + | Primary osteoarthritis of left knee - Primary Primary localized osteoarthrosis, lower | | leg | + + | s/p right carpal tunnel release DOS 08/09/18 Carpal tunnel syndrome | + + documented in this encounter Administered Medications + +--------+ +-------+------+ + | Medication Order | MAR | Action | Dose | Rate | Site | | | Action | Date | | | | + +--------+ +-------+------+ + | triamcinolone acetonide | Given | 01/23/20 | 40 mg | | Knee-Lef | | (KENALOG-40) 40 mg/mL injection | | 19 3:40 | | | t | | 40 mg 40 mg, Intra-articular, | | PM PDT | | | | | ONCE, 01/22/19 at 1715, For 1 | | | | | | | dose, Shake well. Not for IV | | | | | | | use., | | | | | | + +--------+ +-------+------+ + +---+---+ | | | +---+---+ documented in this encounter
--- OUTSIDE RECORDS SUMMARY | ~2019-10-15 | XMS | Encounter Summary ---
Demographics + + + | Address | [address] | | | [place] [address] | + + + | Home Phone | | + + + | Preferred Language | Unknown | + + + | Marital Status | | + + + | Caodaism Affiliation | 1041 | + + + | Race | Unknown | + + + | Ethnic Group | Unknown | + + + Author + + + | Author | [facility] | | | and Esteban | + + + | Organization | [facility] | | | [...] Team Providers + +------+ + | Care Caponizer Name | Role | Phone | + +------+ + | Alejandro Yen DO | PCP | | + +------+ + Reason for Visit + + + | Reason | Comments | + + + | Post Op | DOS 08/09/2018 | + + + | Baltazaral Tunnel | Right | + + + Encounter Details +--------+---------+ + + + | Date | Type | Department | Care Team | Description | +--------+---------+ + + + | 08/22/ | Office | [facility] | Melchor Gerardo | s/p fuentes | | 2019 | Visit | ORTHOPEDIC SURGERY | MD [address] | tunnel release DOS | | | | [address] | [address] | 08/09/18 (Primary Dx) | | | | [place] | [place] [address] | | | | | [address] | [phone] | | | | | [phone] | | | +--------+---------+ + + + [...] + | Weight | 108 kg (238 lb) | 08/22/2018 1:45 PM | | | | | PDT | | + + + + + | Height | 167.6 cm (5' 6") | 08/22/2018 1:45 PM | | | | | PDT | | + + + + + | Body Mass Index | 38.41 | 08/22/2018 1:45 PM | | | | | PDT | | + + + + + documented in this encounter Patient Instructions Patient Instructions Melchor Gerardo MD - 08/22/2018 1:45 PM PDT Carpal Tunnel Syndrome Carpal tunnel [...] not bent back when typing. You may chohjuu-nfr-fzhkyad pain medicine to treat pain and inflammation, [...] becomes swollen or weak Date Last Reviewed: 08/21/201719994726-8917 [employer]. [address] [place] [address], [place] [address]. All righ ts reserved. This information is not intended as a substitute for professional medical care. Always follow your healthcare professional's instructions. documented in this encounter Progress Notes Melchor Gerardo MD - 08/22/2018 1:45 PM PDTFormatting of this note might be dif ferent from the original. [facility] POST-OPERATIVE VISIT Pt. Name/Age/: Tamara Serrano 52 y.o. 1965 Primary Care Physician: Alejandro eYn 1. s/p right carpal tunnel release DOS 08/09/18 Chief Complaint/Reason for Visit: Post Op (DOS 08/09/2018) and Carpal Tunnel (Right) History of Present Illness: The patient is a pleasant 52 y.o. female who presents for a post-operative visit. Since the surgery, the patient has been doing well overall. The patient reports that she had an acci dent where she ended up falling and putting pressure on her palm. This significantly increa sed her pain temporarily. Since then, she has been doing better. She reports that her numb ness and tingling have resolved. Her hand does let her know if she is doing too much. Physical Examination: Ht 1.676 m (5' 6") | Wt 108 kg (238 lb) | BMI 38.41 kg/m General: Alert, oriented, no acute distress HEENT: Normocephalic, atraumatic Cardiovascular: Regular rate and rhythm Respiratory: Breathing normally at a regular rate' Ortho Exam Right upper extremity: Her incision is clean, dry, and intact. It is well-healed. Radial pulse 2+. Sensation inta ct to light touch in the first dorsal webspace, and the pads of the small and index fingers. Able to flex and extend the thumb at the interphalangeal joint, make an "ok" sign, adduct a nd abduct the fingers, and oppose the thumb to the small finger. Diagnostic Studies: Imaging None Labs- Lab Results Component Value Date NA [...] PLT 368 08/08/2018 Assessment and Plan: 1. s/p right carpal tunnel release DOS 08/09/18 The patient is a pleasant 52 y.o. female who presents for a post-operative visit after the above surgery. At this point, we will have her follow-up in 4 weeks. I advised her to lift no more than 2 pounds with the hand for the next 4 weeks. I also advised her to avoid pushi ng or pulling with the hand. At that time, she is doing well she may gradually resume activ ities as tolerated. Follow-up: 4 weeks with no x-ray Portions of this report were transcribed using voice recognition software. Every effort wa s made to ensure accuracy; however, inadvertent computerized small engine technician errors may be pre sent. I appreciate the opportunity to help with the management of this patient. Melchor Gerardo MD documented in this encounter Plan of Treatment Not on filedocumented as of this encounter Visit Diagnoses + + | Diagnosis | + + | s/p right carpal tunnel release DOS 08/09/18 - Primary Carpal tunnel syndrome | + + documented in this encounter
--- OUTSIDE RECORDS SUMMARY | ~2019-10-15 | XMS | Encounter Summary ---
Demographics + + + | Address | [address] | | | [place] [address] | + + + | Home Phone | | + + + | Preferred Language | Unknown | + + + | Marital Status | | + + + | Episcopalian Affiliation | 1041 | + + + | Race | Unknown | + + + | Ethnic Group | Unknown | + + + Author + + + | Author | [facility] | | | and Esteban | + + + | Organization | [facility] | | [...] Team Providers + +------+ + | Care Way Inspector Name | Role | Phone | [...] | | | | | tunnel | [address] | [address] [place] | | | | | syndrome | [place], | [place], [place] | | | | | Bilateral | [place] [address] | [address] Phone: | | | | | hand | Phone: | [phone] | | | | | numbness | [phone] | Fax: | | | | | Weakness of | Fax: | [phone] | | | | | both hands | [phone] | | +--------+ + + + + [...] | hand | [address] | | | | n | numbness | [address] | [place], | | | | | Weakness of | [place], | [place] [address] | | | | | both hands | [place] [address] | Phone: | | | | | Cervicalgia | Phone: | [phone] | | | | | Procedures | [phone] | Fax: | | | | | RI MOTOR | Fax: | [phone] | | | | | &/SENS 1-2 | [phone] | | | | | | NRV CNDJ | | | | | | | PRECONF | | | | | | | ELTRODE LIMB | | | | | | | RI MOTOR | | | | | | | &/SENS 3-4 | | | | | | | NRV CNDJ | | | | | | | PRECONF | | | | | | | ELTRODE LIMB | | | | | | | RI MOTOR | | | | | | | &/SENS 7-8 | | | | | | | NRV CNDJ | | | | | | | PRECONF | | | | | | | ELTRODE LIMB | | | | | | | RI MOTOR | | | | | | | &/SENS 13/> | | | | | | | NRV CNDJ | | | | | | | PRECONF | | | | | | | ELTRODE LIMB | | | | | | | RI NEEDLE | | | | | | | EMG EA | | | | | | | EXTREMITY | | | | | | | W/PARASPINL | | | | | | | AREA LIMITED | | | | | | | RI EMG, | | | | | | | NEEDLE, ONE | | | | | | | LIMB RI | | | | | | | EMG, NEEDLE, | | | | | | | TWO LIMBS | | | | | | | RI NEEDLE | | | | | | | EMG EA | | | | | | | EXTREMTY | | | | | | | W/PARASPINL | | | | | | | AREA | | | | | | | COMPLETE RI | | | | | | | [...] Procedure | [facility] [place] | Moises Spivey A, | Bilateral carpal | | 2019 | visit | PHYSIATRY [address] | [address] | tunnel syndrome | | | | [address] | [place] | (Primary Dx); | | | | [place] | [address] | Bilateral hand | | | | [address] | | numbness; Weakness | | | | [phone] | | of both hands; | | [...] Last Filed Vital Signs + +---------+ + + | Vital Sign | Reading | Time Taken | Comments | + +---------+ + + | Blood Pressure | 118/78 | 05/15/2018 2:28 PM | | | | | PST | | + +---------+ + + | Pulse | 103 | 05/15/2018 2:28 PM | | | | | PST | | + +---------+ + + | Temperature | - | - | | + +---------+ + + | Respiratory Rate | - | - | | + +---------+ + + | Oxygen Saturation | - | - | | + +---------+ + + | Inhaled Oxygen | - | - | | | Concentration | | | | + +---------+ + + | Weight | - | - | | + +---------+ + + | Height | - | - | | + +---------+ + + | Body Mass Index | - | - | | + +---------+ + + documented in this encounter Patient Instructions Patient Instructions Moises Spivey MD - 05/15/2018 2:00 PM PSTContinue wearing carpal t unnel wrist splints at night, only at night, every night. Orthopedic surgery consult has been requested to consider carpal tunnel release surgery. I f you haven't heard from the surgeon's office within 2 weeks, please let us know. If you have persisting symptoms after recovering from carpal tunnel surgery, return to the clinic for further evaluation of your neck.Electronically signed by Moises Spivey MD at 3:50 PM PST documented in this encounter Progress Notes Moises Spivey MD - 05/15/2018 2:00 PM PSTFormatting of this note might be different fro m the original. [facility] Physical Medicine & Rehabilitation [address] [place] [address], [facility] [address] [place] [address] Test Date: 05/15/2018 Patient Name: Tamara Serrano : 1965 Physician: Moises Spivey MD (Jr.) MR #: [id number] Sex: Female Referring Physician: Alejandro Yen DO [...] hand we akness. 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 She reports dropping objects with both [...] digits bilaterally. Motor exam demonstrates 4/5 hand front office supervisor on the right compared to 4+/5 on [...] the association between carpal tunnel syndrome and jonel alexander. Today's study cannot diagnose, nor rule out [...] not hesitate to call. Moises Spivey MD (Jr.) Physical Medicine and Rehabilitation Cc: Alejandro Yen DO documented in this en counter Plan of Treatment + + +--------+ + + | Name | Type | Priori | Associated Diagnoses | Order Schedule | | | | ty | | | + + +--------+ + + | * [facility] | Outpatient | Routin | Bilateral carpal | Ordered: 05/15/2018 | | Orthopedic Surgery - | Referral | e | tunnel syndrome | | | AMB Referral | | | Bilateral hand | | | | | | numbness Weakness | | | | | | of both hands | | + + +--------+ + + documented as of this encounter Visit Diagnoses + + | Diagnosis | + + | Bilateral carpal tunnel syndrome - Primary Carpal tunnel syndrome | + + | Bilateral hand numbness Disturbance of skin sensation | + + | Weakness of both hands | + + | History of diabetes mellitus, type II Personal history of other endocrine, metabolic, | | and immunity disorders | + + documented in this encounter
--- OUTSIDE RECORDS SUMMARY | ~2019-10-15 | XMS | Encounter Summary ---
Demographics + + + | Address | [address] | | | [place] [address] | + + + | Home Phone | | + + + | Preferred Language | Unknown | + + + | Marital Status | | + + + | Zoroastrianism Affiliation | 1041 | + + + | Race | Unknown | + + + | Ethnic Group | Unknown | + + + Author + + + | Author | [facility] | | | and Esteban | + + + | Organization | [facility] | | | [...] Team Providers + +------+ + | Care Fireworks Maker Name | Role | Phone | [...] | Changes | ORTHOPEDIC SURGERY | I, Dining Services Director | | | | | [address] | | | | | | [place] | | | | | | [address] | | | | | | [phone] | | | +--------+ + + + [...]
--- OUTSIDE RECORDS SUMMARY | ~2019-10-15 | XMS | Encounter Summary ---
Demographics + + + | Address | [address] | | | [place] [address] | + + + | Home Phone | | + + + | Preferred Language | Unknown | + + + | Marital Status | | + + + | Voodoo Affiliation | 1041 | + + + | Race | Unknown | + + + | Ethnic Group | Unknown | + + + Author + + + | Author | [facility] | | | and Esteban | + + + | Organization | [facility] | | [...] Team Providers + +------+ + | Care Paper Bag Making Machinist Name | Role | Phone | + [...] | | | | carpal | | [address] | | | | | tunnel | | Phone: | | | | | synddrome | | [phone] | | | | | Procedures | | Fax: | | | | | [place] [facility] | | [phone] | | | | | MEDIAN | [...] +--------+--------+ + + + + Encounter Details +--------+ + + + + | Date | Type | Department | Care Team | Description | +--------+ + + + + | 08/09/ | Hospital | [facility] | Melchor Gerardo | Right carpal tunnel | | 2019 | Encounter | MED CTR OR INTRA OP | MD [address] | syndrome | | | | [address] | [place] | | | | | [place] | [place] [address] | | | | | [address] | [phone] | | | | | [phone] | | | +--------+ + + + [...] Date of Discharge: 08/09/2018 Admitting Physician: Melchor Smith* PCP: Alejandro Yen Discharging Physician: Melchor Gerardo [...] glucose blood test strips TRUEPLUS LANCETS 28G Misc ULTICARE ALCOHOL SWABS 70 % Pads Immunization [...] appointment in about 2 weeks. Please call [phone] with any questions or concerns. - Please [...] make decisions. After being discharged from the [facility], remember not to do the following: drive [...] the least year was checked using the [place] [employer] tion Monitoring Program. Decision was made to prescribe narcotics due to the patient's acute pain. No discharge procedures on file. Electronically signed by: Melchor Gerardo, 08/09/2018 10:49 [facility] documented in this encounter Discharge Instructions Instructions [...] make decisions. After being discharged from the [facility], remember not to do the following: drive [...] 1 tablet by | | 0 | 07/20/ | | | (DIFLUCAN) 150 mg | [...] signed by: Melchor Gerardo MD, 08/09/2018 10:03 [facility] riddy, [facility] lyndsey Joyner MD - 08/08/2018 4:00 PM PDT [facility] PRE-OPERATIVE VISIT Pt. Name/Age/: Tamara Serrano 52 [...] non-medical: Not on file Occupational History Employer: [employer] Tobacco Use Smoking status: Former Smoker Smokeless [...] made to ensure accuracy; however, inadvertent computerized business architect errors may be pre sent. I appreciate [...] Carpal Tunnel Release SURGEON: Melchor Gerardo MD STILL OPERATOR BRANDY: None ANESTHESIA: Conscious sedation and local ESTIMATED [...] appointment in about 2 weeks. Please call [phone] with any questions or concerns. - Please [...] make decisions. After being discharged from the [facility], remember not to do the following: drive [...] | | | | | | [facility] | | | | | | CORE | | | | | | LABORATORY | | + + + + + + | Specific | | 1.010, 1.015, | [facility] | | | [place], | | 1.020, 1.025 | [facility] | | | POC | | | CORE | | | | | | LABORATORY | | + + + + + + | Lot Number | [id number] | | [facility] | | | | | | [facility] | | | | | | CORE [...] | + + + + + | [address] | [address] | [place] [address] | [phone] | | [facility] C[facility] | | | | | LABORATORY | | | | + + + + + POC Glucose (08/09/2018 9:51 AM PDT) + +---------+ + + + | Component | Value | Ref Range | Performed | Pathologist | | | | | At | Signature | + +---------+ + + + | Glucose, | 292 (H) | 70 - 109 mg/dL | [facility] | | | POC | | | [...] [address] | [place] | [phone] | | [facility] | | [address] | | | - LABORATORY | | | | + + + + + documented in this encounter Visit Diagnoses + + | Diagnosis | + + | Right carpal tunnel syndrome Carpal tunnel syndrome | + + | Asthma, persistent Unspecified asthma | + + | Diabetes mellitus, type II, insulin dependent (HCC) Type II or unspecified type | | diabetes mellitus without mention of complication, not stated as uncontrolled | + + | Hypertension Unspecified essential hypertension | + + documented in this encounter Administered Medications + +--------+---------+------+------+------+ | Medication Order | MAR | Action | Dose | Rate | Site | | | Action | Date | | | | + +--------+---------+------+------+------+ + +---+ | albuterol 2.5 mg/3 mL nebulizer | | | solution 2.5 mg 2.5 mg, | | | Nebulization, ONCE PRN, Wheezing, | | | Starting Sun08/09/18 at 1045, | | | For 1 [...] MIN PRN, Pain, Starting | | | Sun08/09/18 at 1045, Maximum | | | total [...] 1045, If ineffective | | | use [place] 10/325 if ordered. If | | | [...] | | | | | CONTINUOUS, Starting 08/09/18 | | AM PDT | | | | | at 1000, TKO., Pre-op | | | | | | + +---------+ +---+---+---+ + +---+ | | | + +---+ | ondansetron (ZOFRAN ODT) | | | disintegrating tablet 4 mg 4 mg, | | | Oral, EVERY 6 HOURS PRN, Nausea, | | | Vomiting, Starting 08/09/18 | | | at 1045, First line [...]
--- OUTSIDE RECORDS SUMMARY | ~2019-10-15 | XMS | Encounter Summary ---
Demographics + + + | Address | [address] | | | [place] [address] | + + + | Home Phone | | + + + | Preferred Language | Unknown | + + + | Marital Status | | + + + | Hinduism Affiliation | 1041 | + + + | Race | Unknown | + + + | Ethnic Group | Unknown | + + + Author + + + | Author | [facility] | | | and Esteban | + + + | Organization | [facility] | | | and [...] Team Providers + +------+ + | Care Studio Manager Name | Role | Phone | + +------+ + | Alejandro Yen DO | PCP | | + +------+ + Reason for Visit + +--------+ + | Reason | Onset | Comments | | | Date | | + +--------+ + | Referral | 02/06/ | | | | 2018 | | + +--------+ + Encounter Details +--------+ + + + + | Date | Type | Department | Care Team | Description | +--------+ + + + + | 02/06/ | Telephone | [facility] | Moises Spivey, | Referral | | 2018 | | PHYSIATRY [address] | MD [address] | | | | | [address] | [place], [place] | | | | | [place], [place] | [address] | | | | | [address] | | | | | | [phone] | | | +--------+ + + + [...] Miscellaneous Notes Telephone Encounter - Juliana Jean, Crank Hand - 02/06/2018 1:51 [address] to inform Tamara Serrano that she should have referral from Alejandro Yen DO to jonel ryan back pain. Original referral did not include diagnosis of back pain. Left a voicemail message to call our office back. elephone Encounter - Juliana Jean Crank Hand - 02/06/2018 1:51 PM PDT----- Message from Elisha Simeon sent at 02/05/2018 14:01 PDT ---- - She has [facility] a referral needs to come from them ----- Message ----- From: Juliana Jean Crank Hand Sent: 02/05/2018 13:52 [facility]: [facility] Corporate Physical Security Supervisor Please call and schedule appointment with Hemant to discuss back pain. do cumented in this encounter Plan of Treatment Not on filedocumented as of this encounter Visit Diagnoses Not on filedocumented in this encounter"
--- OUTSIDE RECORDS SUMMARY | ~2019-10-15 | XMS | Encounter Summary ---
Demographics + + + | Address | [address] | | | [place] [address] | + + + | Home Phone | | + + + | Preferred Language | Unknown | + + + | Marital Status | | + + + | Moravian Affiliation | 1041 | + + + | Race | Unknown | + + + | Ethnic Group | Unknown | + + + Author + + + | Author | [facility] | | | and Esteban | + + + | Organization | [facility] | | | [...] Team Providers + +------+ + | Care Air Intelligence Specialist Name | Role | Phone | + [...] | | | | carpal | | [address] | | | | | tunnel | | Phone: | | | | | synddrome | | [phone] | | | | | Procedures | | Fax: | | | | | [place] [facility] | | [phone] | | | | | MEDIAN | [...] + + + + | 08/09/ | Anesthesia | [facility] | Carlos Malone | | | 2019 | Event | MED CTR OR INTRA OP | MD Luis [address] | | | | | [address] | [address] [place] | | | | | [place] | [address] | | | | | [address] | | | | | | [phone] | | | +--------+ + + + + Anesthesia Record + + + + + | Procedure Name | Responsible | Anesthesia Start | Anesthesia Stop Time | | | Anesthesiologist | Time | | + + + + + | RIGHT RELEASE BRIDGET | Carlos Malone, | 08/09/18 1002 | 08/09/18 1044 | | TUNNEL (Right | MD | | | | Wrist) | | | | + + + + + +----+---+ + + | Da | T | Event | Comment | | te | i | | | | | m | | | | | e | | | +----+---+ + + | 04 | 0 | An Checkout | Pre-use anesthesia machine/equipment checkout. | | /1 | 9 | | | | 9/ | 4 | | | | 20 | 5 | | | | 19 | | | | +----+---+ + + | | 0 | Anesthesia | | | | 9 | Ready | | | | 5 | | | | | 0 | | | +----+---+ + + | | 1 | | | | | 0 | | | | | 0 | | | | | 0 | | | +----+---+ + + | | 1 | An Start | | | | 0 | Data | | | | 0 | | | | | 0 | | | +----+---+ + + | | 1 | An Start | Room ready, anesthesia equipment checked, essential drugs & | | | 0 | | equipment available. Patient Identity checked, anesthesia plan | | | 0 | | explained and consent obtained. Patient transported to OR, | | | 2 | | Monitors applied. Reassessment prior to anesthesia | | | | | induction/procedure. | +----+---+ + + | | 1 | an madhu now | | | | 0 | | | | | 0 | | | | | 5 | | | +----+---+ + + | | 1 | AN | Per surgeon request | | | 0 | Antibiotic | | | | 0 | declined | | | | 6 | | | +----+---+ + + | | 1 | Pre-Procedu | | | | 0 | ral Timeout | | | | 1 | Completed | | | | 4 | | | +----+---+ + + | | 1 | First | | | | 0 | Inc/Proc St | | | | 1 | | | | | 6 | | | +----+---+ + + | | 1 | an madhu now | [facility] 2 | | | 0 | | | | | 3 | | | | | 9 | | | +----+---+ + + | | 1 | an stop | | | | 0 | data | | | | 3 | | | | | 9 | | | +----+---+ + + | | 1 | An Stop | Patient handed off to recovery nurse. | | | 4 | | | | | 4 | | | +----+---+ + + +------+ | Meds | +------+ + + + | Name | Total | + + + | propofol | 80 mg | + + + | propofol | 552.33 mg | + + + | lactated ringers (LR) infusion | 650 mL | + + + + + | Name | + + | N2O Flow Rate (L/Min) | + + | O2 Flow Rate (L/Min) | + + | Insp O2 | + + | Air Flow Rate (L/Min) | + + + + | No blood administrations on file. | + + +--------+ + + + | Type | Details | Placement | Removal | +--------+ + + + | Periph | 08/09/18; 0948; Left; | 08/09/18 0948 by | 08/09/18 1110 by | | eral | Antecubital; [id number] | Clara Canada RN | Malika Her RN | | IV | catheter system; 20 gauge, 1 1/4 | | | | | in length; distraction, | | | | | intradermal injection, tolerated | | | | | well; no longer indicated, | | | | | removed per policy/procedure, | | | | | catheter/device intact; short | | | | | term use; 08/09/18; 1110 | | | +--------+ + + + | Wound | 08/09/18; 1019; Incision; arm; | 08/09/18 1019 by | 08/09/18 1118 by | | | Healing; 08/09/18; 1118 | Moisés Rodriguez RN | Malika Her RN | +--------+ + + + documented in this encounter Social History + +-------+ +--------+------+ | Tobacco [...] + + documented as of this encounter OR Notes Anesthesia Postprocedure Evaluation - Carlos Malone MD - 08/09/2018 10:48 AM PDTForm atting of this note might be different from the original. ANESTHESIA POSTANESTHESIA EVALUATION Tamara YoungkishoreKristenShahram 52 y.o. female 1965 [id number] Procedure(s) RIGHT RELEASE CARPAL TUNNEL (Right Wrist) Cooperates? Yes Mental Status Performs simple tasks. Respiratory Satisfactory - Airway patent (self maintained). Cardiovascular Satisfactory - Blood pressure and heart rate acceptable Temperature Satisfactory Pain Satisfactory N/V Control Satisfactory Hydration Satisfactory - No signs of dehydration Complications None apparent Vitals Value Taken Time Temp 36.4 C (97.5 F) 08/09/2018 10:45 Pulse 88 08/09/2018 10:48 Resp 16 08/09/2018 10:45 BP 125/69 08/09/2018 10:46 Arterial Line BP Arterial Line BP 2 SpO2 94 % 08/09/2018 10:48 Vitals shown include unvalidated device data. Electronically signed by Carlos Malone MD 08/09/2018 10:48 [facility] nesthesia Preprocedure Evaluation - Carlos Malone MD - 2018 10:21 AM PDT ANESTHESIA PREANESTHESIA EVALUATION Tamara Serrano 52 y.o. female 1965 [id number] Procedure(s): RIGHT RELEASE CARPAL TUNNEL (Right Wrist) Review of Systems / Med History Cardiovascular (+) hypertension, . Pulmonary (+) asthma. Gastrointestinal/Hepatic (+) hypercholesterolemia. Endocrine (+) obesity: BMI (30-39) (+) Diabetes: type 2, using insulin. Neurology (+) history of headaches, back pain, chronic pain. Physical Exam Airway MP III, TM >3 FB, Mouth opening >2 FB. Neck: full ROM, extends >30 degrees. Jaw protru emelia normal. CV Rhythm regular. Anesthesia Plan ASA 2 Type: MAC. Induction: Intravenous. Potential problems: None anticipated, none anticipated. Monitors: Standard ASA monitors. Consent statement:Anesthetic plan, alternatives, risks and benefits discussed with patient. Risks discussed included (but were not limited to): sore throat, pain, disability, perioper ative CV events, infection, muscle aches, voice injury, drug reaction, heart problems, nause a, respiratory events,. Consenting person understands and agrees to proceed . Patient Active Problem List: Right carpal tunnel syndrome Trigger thumb of right hand Left carpal tunnel syndrome Abnormal liver function Diabetes mellitus, type II, insulin dependent Mixed hyperlipidemia Asthma, persistent Hypertension REZA Inhibitors - Daily use Obesity, Class II, BMI 35-39.9 . Electronically Signed by: Carlos Malone MD ESig date/time: 08/09/2018 10:21 documented in thi s encounter Plan of Treatment Not on filedocumented as of this encounter Visit Diagnoses Not on filedocumented in this encounter Administered Medications + +---------+ +------+------+------+ | Medication Order | MAR | Action | Dose | Rate | Site | | | Action | Date | | | | + +---------+ +------+------+------+ | lactated ringers (LR) infusion | New Bag | 08/10/19 | | | | | at 10-100 mL/hr, Intravenous, | | 19 9:30 | | | | | CONTINUOUS, Starting 08/09/18 | | AM PDT | | | | | at 1000, TKO., Pre-op | | | | | | + +---------+ +------+------+------+ +---+---+ | | | +---+---+ + +---------+ + +-------+---+ | propofol (DIPRIVAN) injection | New Bag | 08/10/19 | 150 | 97.5 | | | Intravenous, CONTINUOUS PRN, | | 19 10:10 | mcg/kg/m | mL/hr | | | Starting Sun08/09/18 at 1010, | | AM PDT | in | | | | Anesthesia Intra-op | | | | | | + +---------+ + +-------+---+ +---+---+ | | | +---+---+ + +-------+ +-------+---+---+ | propofol (DIPRIVAN) injection | Given | 08/10/19 | 40 mg | | | | Intravenous, PRN, Starting Sun | | 10:15 | | | | | 08/09/18 at 1010, Anesthesia | | AM PDT | | | | | Intra-op | | | | | | + +-------+ +-------+---+---+ +-------+ +-------+---+---+ | Given | 08/10/19 | 20 mg | | | | | 19 10:13 | | | | | | AM PDT | | | | +-------+ +-------+---+---+ | Given | 08/10/19 | 20 mg | | | | | 19 10:10 | | | | | | AM PDT | | | | +-------+ +-------+---+---+ +---+---+ | | | +---+---+ documented in this encounter"
--- OUTSIDE RECORDS SUMMARY | ~2019-10-15 | XMS | Clinical Summary ---
Demographics + + + | Address | [address] | | | [place] [address] | + + + | Home Phone | | + + + | Preferred Language | Unknown | + + + | Marital Status | | + + + | Sabianism Affiliation | 1041 | + + + | Race | Unknown | + + + | Ethnic Group | Unknown | + + + Author + + + | Author | [facility] | | | and Esteban | + + + | Organization | [facility] | | | [...] Team Providers + +------+ + | Care Dope Maintenance Worker Name | Role | Phone | + +------+ + | Alejandro Yen DO | PCP | | + +------+ + Allergies + [...] | + + + + + + Medications + + + +---------+------+------+-------+ | Medication | Sig | Dispensed | Refills | Star | End | Statu | | | | | | t | Date | s | | | | | | Date | | | + + + +---------+------+------+-------+ | albuterol (PROAIR | Inhale 2 puffs into | | 0 | | | Activ | | HFA) 90 mcg/puff | the lungs every 6 | | | | | e | | inhaler | hours as needed for | | | | | | | | Shortness of Breath. | | | | | | + + + +---------+------+------+-------+ | celecoxib | Take 200 mg by mouth | | 0 | | | Activ | | (CELEBREX) 200 mg | Twice daily as | | | | | e | | capsule | needed for Pain | | | | | | | | (Arthritis). | | | | | | + + + +---------+------+------+-------+ | ergocalciferol | Take 50,000 Units by | | 0 | | | Activ | | (VITAMIN D-2) 50,000 | mouth Once a week. | | | | | e | | units capsule | | | | | | | + + + +---------+------+------+-------+ | fexofenadine | Take 180 mg by mouth | | 0 | | | Activ | | (RADHA) 180 mg | Daily as needed for | | | | | e | | tablet | Allergies. | | | | | | + + + +---------+------+------+-------+ | insulin glargine | Inject 75 Units | | 0 | | | Activ | | (LANTUS SOLOSTAR) | under the skin | | | | | e | | 100 units/mL | nightly. | | | | | | | injection (pen) | | | | | | | + + + +---------+------+------+-------+ | insulin aspart | Inject 30 Units | | 0 | | | Activ | | (NOVOLOG) 100 | under the skin 3 | | | | | e | | units/mL injection | times daily (before | | | | | | | | meals). | | | | | | + + + +---------+------+------+-------+ | lisinopril | Take 10 mg by mouth | | 0 | | | Activ | | (PRINIVIL, ZESTRIL) | Daily. | | | | | e | | 10 mg tablet | | | | | | | + + + +---------+------+------+-------+ | metaxalone | Take 800 mg by mouth | | 0 | | | Activ | | (SKELAXIN) 800 mg | 4 times daily. | | | | | e | | tablet | | | | | | | + + + +---------+------+------+-------+ | montelukast | Take 10 mg by mouth | | 0 | | | Activ | | (SINGULAIR) 10 mg | nightly. | | | | | e | | tablet | | | | | | | + + + +---------+------+------+-------+ | olopatadine | Place 1 drop into | | 0 | | | Activ | | (PATANOL) 0.1% | both eyes 2 times | | | | | e | | ophthalmic solution | daily. | | | | | | + + + +---------+------+------+-------+ | ULTICARE ALCOHOL | | | 0 | 12/3 | | Activ | | SWABS 70 % PADS | | | | 1/20 | | e | | | | | | 18 | | | + + + +---------+------+------+-------+ | fluticasone | | | 0 | 11/2 | | Activ | | (FLONASE) 50 | | | | 7/20 | | e | | mcg/nasal spray | | | | 18 | | | + + + +---------+------+------+-------+ | TRUE METRIX BLOOD | | | 0 | 12/3 | | Activ | | GLUCOSE TEST strip | | | | 1/20 | | e | | | | | | 18 | | | + + + +---------+------+------+-------+ | TRUEPLUS LANCETS | | | 0 | 11/0 | | Activ | | 28G MISC | | | | 5/20 | | e | | | | | | 18 | | | + + + +---------+------+------+-------+ | B-D ULTRAFINE III | | | 0 | 12/3 | | Activ | | SHORT PEN 31G X 8 MM | | | | 1/20 | | e | | | | | | 18 | | | + + + +---------+------+------+-------+ | NOVOLOG FLEXPEN | | | 0 | 12/3 | | Activ | | 100 UNIT/ML | | | | 1/20 | | e | | injection pen | | | | 18 | | | + + + +---------+------+------+-------+ | clindamycin | take 1 capsule by | | 0 | 03/3 | | Activ | | (CLEOCIN) 300 MG | mouth four times a | | | 0/20 | | e | | capsule | day | | | 19 | | | + + + +---------+------+------+-------+ | fluconazole | take 1 tablet by | | 0 | 03/3 | | Activ | | (DIFLUCAN) 150 mg | mouth as a single | | | 0/20 | | e | | tablet | dose | | | 19 | | | + + + +---------+------+------+-------+ | | Take 1-2 tablets by | 20 | 0 | 04/1 | | Activ | | HYDROcodone-acetamin | mouth every 4 hours | tablet | | 9/20 | | e | | ophen (NORCO) 5-325 | as needed for Pain. | | | 19 | | | | mg per tablet | | | | | | | + + + +---------+------+------+-------+ | azithromycin | Take 250 mg by mouth | | 0 | 05/0 | | Activ | | (ZITHROMAX) 250 mg | Daily. | | | /20 | | e | | tablet | | | | 19 | | | + + + +---------+------+------+-------+ | SYMBICORT 160-4.5 | Take 160 mcg by | | 0 | 08/1 | | Activ | | MCG/ACT inhaler | mouth 2 times daily. | | | 6/20 | | e | | | | | | 19 | | | + + + +---------+------+------+-------+ | Continuous Blood | | | 0 | 10/1 | | Activ | | Gluc Furnace Stock Inspector | | | | 11/09 | | e | | (CRISELDA BERNARDO 14 | | | | 19 | | | | DAY READER) ELIEZER | | | | | | | + + + +---------+------+------+-------+ | NOVOLOG MIX 70/30 | | | 0 | 10/0 | | Activ | | FLEXPEN (70-30) 100 | | | | 9/20 | | e | | UNIT/ML PEN | | | | 19 | | | + + + +---------+------+------+-------+ | Continuous Blood | | | 0 | 10/0 | | Activ | | Gluc Sensor | | | | 8/20 | | e | | (FREESTYLE [place] 14 | | | | 19 | | | | DAY SENSOR) MISC | | | | | | | + + + +---------+------+------+-------+ | HUMULIN N KWIKPEN | | | 0 | 11/0 | | Activ | | 100 UNIT/ML | | | | 7/20 | | e | | injection pen | | | | 19 | | | + + + +---------+------+------+-------+ Active Problems + + + | Problem | Noted Date | + + + | Post-traumatic osteoarthritis of left knee | 02/13/2019 | + + + | REZA Inhibitors - Daily use | 08/08/2018 | + + + | Obesity, Class II, BMI 35-39.9 | 08/08/2018 | + + + | s/p right carpal tunnel release DOS 08/09/18 | 06/26/2018 | + + + | Trigger thumb of right hand | 06/26/2018 | + + + | Left carpal tunnel syndrome | 06/26/2018 | + + + | Abnormal liver function | | + + + | Diabetes mellitus, type II, insulin dependent | | + + + | Mixed hyperlipidemia | | + + + | Asthma, persistent | | + + + | Hypertension | | + + + Encounters +--------+---------+ + + + | Date | Type | Specialty | Care Team | Description | +--------+---------+ + + + | 10/05/ | Office | Orthopedic Surgery | Moises Spivey, | Left carpal tunnel | | 2019 | Visit | | Melchor Apodaca | syndrome (Primary | | | | | MD Ar | Dx) | +--------+---------+ + + + | 10/01/ | Office | Orthopedic Surgery | Melchor Gerardo | Post-traumatic | | 2019 | Visit | | MD Ar | osteoarthritis of | | | | | | left knee (Primary | | | | | | Dx) | +--------+---------+ + + + from Last 3 Months Immunizations + + + + | Name | Administration Dates | Next Due | + + + [...] + + + | Blood Pressure | 127/78 | 04/01/2019 2:56 PM | | | | | PST | | + + + + + | Pulse | 99 | 04/01/2019 2:56 PM | | | | | PST [...] + | Oxygen Saturation | 97% | 04/01/2019 2:56 PM | | | | | PST [...] | | + + + + + Plan of Treatment + + + + + | Health Maintenance | Due Date | Last | Comments | | | | Done | | + + + + + | Diabetic Eye Exam | | | | | | 6 | | | + + + + + | Diabetic Foot Exam | | | | | | 6 | | | + + + + + | Hemoglobin A1c | | | | | Screening | 6 | | | + + + + + | Cervical Cancer | | | | | Screening (Pap) | 8 | | | + + + + + | Vaccine: | | 05/02/19 | | | Pneumococcal 19-64 | 3 | 13 | | | (1 of 1 - PPSV23) | | | | + + + + + | Breast Cancer | | | | | Screening | 3 | | | + + + + + | Colorectal Cancer | | | | | Screening | 8 | | | | (Colonoscopy) | | | | + + + + + | Statin Therapy | | | | | (optimal intensity) | 8 | | | + + + + + | Vaccine: Zoster (2 | | 10/04/19 | | | of 2) | 9 | 19 | | + + + + + | Vaccine: Influenza | | 01/22/20 | | | (Season Ended) | 0 | 18, | | | | | 02/09/20 | | | | | 17, | | | | | 12/22/19 | | | | | 16, | | | | | Addition | | | | | al | | | | | history | | | | | exists | | + + + + + | Vaccine: | | 11/01/19 | | | Dtap/Tdap/Td (2 - | 2 | 12 | | | Td) | | | | + + + + + Results Not on filefrom Last 3 Months Insurance + +--------+ +--------+ + +--------+ | Payer | Benefi | Subscriber | Effect | Phone | Address | Type | | | t Plan | ID | malka | | | | | | / | | Dates | | | | | | Group | | | | | | + +--------+ +--------+ + +--------+ | MODA | MODA | [id number] | 04/01/ | [phone] | [address] | PPO | | | HEALTH | | 2019-P | [phone] | [phone] | | | | | | [address] | | [place], | | | | [place] | | | | [place] [address] | | | | [place] | | | | | | + +--------+ +--------+ + +--------+ | BCBS | BCBS | [id number] | 04/23/19 | | | PPO | | | FEDERA | | 16-Pre | | | | | | L FEP | | sent | | | | + +--------+ +--------+ + +--------+ | BCBS | BCBS | [id number] | 04/23/19 | | | PPO | | | FEDERA | | 16-Pre | | | | | | L FEP | | sent | | | | + +--------+ +--------+ + +--------+ | [facility] | IHS | [id number] | 07/27/19 | | | Indemn | | SERVICE | YELLOW | | 18-Pre | | | ity | | | HAWK | | sent | | | | + +--------+ +--------+ + +--------+ + +--------+ +--------+ + + | Guarantor Name | Accoun | Relation to | Date | Phone | Billing Address | | | t Type | Patient | of | | | | | | | | | | + +--------+ +--------+ + + | Martha Serrano | Person | Self | [birth year] | | [address] | | rly | al/Fam | | 1966 | [phone] | [place] [address] | | | wei | | | 0 (Home) | | + +--------+ +--------+ + + | Martha Serrano | Person | Self | [birth year] | | [address] | | rly | al/Fam | | 1966 | [phone] | [place] [address] | | | wei | | | 0 (Home) | | + +--------+ +--------+ + + Advance Directives + + + + + | Type | Date Recorded | Patient | Explanation | | | | Fur Polisher | | + + + + + | Power of | | | | | Project Management Specialist | | | | + + + + + | Advance | 08/09/2018 9:42 | | | | Directive | AM | | | + + + + + + + + + + | Code Status | Date | Date | Comments | | | Activated | Inactivated | | + + + + + | Full Code | 08/09/2018 | 08/09/2018 | | | | 10:45 AM | 1:24 PM | | + + + + +
--- OUTSIDE RECORDS SUMMARY | ~2019-10-15 | XMS | Encounter Summary ---
Demographics + + + | Address | [address] | | | [place] [address] | + + + | Home Phone | | + + + | Preferred Language | Unknown | + + + | Marital Status | | + + + | Druze Affiliation | 1041 | + + + | Race | Unknown | + + + | Ethnic Group | Unknown | + + + Author + + + | Author | [facility] | | | and Esteban | + + + | Organization | [facility] | | | and [...] Team Providers + +------+ + | Care Services Mgr Name | Role | Phone | + +------+ + | Alejandro Yen DO | PCP | | + +------+ + Reason for Visit +--------+ + | Reason | Comments | +--------+ + | | | +--------+ + Evaluate & Treat (Routine) + +--------+ + + + + | Status | Reason | Specialty | Diagnoses / | Referred By | Referred To | | | | | Procedures | Contact | Contact | + +--------+ + + + + | Authorized | | Podiatry | Diagnoses | Mark, | [facility] | | | | | Toney toe, | EMILY Dow | Ankle [address] | | | | | left Foot | [address] | [address] | | | | | Joint Pain, | [address] | [address] | | | | | Left Varus | [place], | [place], [place] | | | | | deformity of | [place] [address] | [address] | | | | | great toe, | Phone: | Phone: | | | | | left | [phone] | [phone] | | | | | | Fax: | Fax: | | | | | | [phone] | [phone] | + +--------+ + + + + Encounter Details +--------+---------+ + + + | Date | Type | Department | Care Team | Description | +--------+---------+ + + + | 04/01/ | Office | [facility] | Davon Smith | Varus deformity of | | 2019 | Visit | [address] | [address] | great toe, | | | | [address] | [address] | unspecified | | | | [place], [place] | [place] [address] | laterality (Primary | | | | [address] | [phone] | Dx); Left foot pain; | | | | [phone] | | Type 2 diabetes | | | | | | mellitus without | | | | | | complication, | | | | | | unspecified whether | | | | | | intermediate manager insulin | | | | | | use (HCC) | +--------+---------+ + + + Social History [...] +---------+ + + | Blood Pressure | 127/78 | 04/01/2019 2:56 PM | | | | | PST | | + +---------+ + + | Pulse | 99 | 04/01/2019 2:56 PM | | | | | PST | | + +---------+ + + | Temperature | - | - | | + +---------+ + + | Respiratory Rate | - | - | | + +---------+ + + | Oxygen Saturation | 97% [...] +---------+ + + documented in this encounter Progress Notes Davon Smith, YVONNE - 04/01/2019 3:00 PM PSTFormatting of this note might be differe nt from the original. [facility] Date of visit:04/04/2019 Patient Name:Tamara Serrano AGE: 53 y.o. :1965 CHIEF COMPLAINT: No chief complaint on file. Here today for left foot pain. Patient states she has had 2 surgeries to fix a bunion and a hammer toe. States now her toes are being pulled outward and is still having pain on the to p of her foot. States that she still has swelling. Pain 09/30. HISTORY OF PRESENT ILLNESS Patient presents to the office with a 1 year history of surgery which resulted in a turned in left great toe. Patient states that she has has pain and tenderness with activity. Inte rmittent swelling with tenderness with shoe gear. Patient states that she is unable to wear her shoes as it rubs on her big toe. Patient does relate a history of diabetes with good b lood glucose control. No burning numbness or tingling to the feet. No history of ulceratio n or amputation. Review of systems noted REVIEW OF SYSTEMS Review of Systems Constitutional: Negative for chills and fever. Respiratory: Negative for chest tightness and shortness of breath. Cardiovascular: Negative for chest pain and palpitations. Gastrointestinal: Negative for nausea and vomiting. Skin: Negative for rash. Neurological: Negative for dizziness, numbness and headaches. Past Medical History: Diagnosis Date Abnormal liver [...] CARPAL TUNNEL; Surgeon: Melchor Gerardo MD; Location: [facility] MAIN OR KNEE SURGERY Bilateral Allergies Allergen Reactions Cephalexin Other (See Comments) [...] Reaction not specified in outside medical records Prior to Admission medications Medication Sig Start Date End Date Taking? Authorizing Provider albuterol (PROAIR HFA) 90 mcg/puff inhaler Inhale 2 puffs into the lungs every 6 hours as n eeded for Shortness of Breath. Historical Provider, azithromycin (ZITHROMAX) 250 mg tablet Take 250 mg by mouth Daily. 08/21/18 Historical Prov iderMD B-D ULTRAFINE III SHORT PEN 31G X 8 MM 04/22/18 Historical Provider, celecoxib (CELEBREX) 200 mg capsule Take 200 mg by mouth Twice daily as needed for Pain (A rthritis). Historical Provider, clindamycin (CLEOCIN) 300 MG capsule take 1 capsule by mouth four times a day 07/20/18 His torical Provider, Continuous Blood Gluc Marketing Sales Manager (FREESTYLE [place] 14 DAY READER) ELIEZER 02/06/19 Historical ProviderMD Continuous Blood Gluc Sensor (FREESTYLE [place] 14 DAY SENSOR) MISC 01/28/19 Historical Pro viderMD ergocalciferol (VITAMIN D-2) 50,000 units capsule Take 50,000 Units by mouth Once a week. Historical Provider, fexofenadine (RADHA) 180 mg tablet Take 180 mg by mouth Daily as needed for Allergies. Historical Provider, fluconazole (DIFLUCAN) 150 mg tablet take 1 tablet by mouth as a single dose 07/20/18 Hist orical Provider, fluticasone (FLONASE) 50 mcg/nasal spray 03/19/18 Historical Provider, HYDROcodone-acetaminophen (NORCO) 5-325 mg per tablet Take 1-2 tablets by mouth every 4 kim rs as needed for Pain. 08/09/18 Melchor Gerardo MD insulin aspart (NOVOLOG) 100 units/mL injection Inject 30 Units under the skin 3 times trent y (before meals). Historical Provider, insulin glargine (LANTUS SOLOSTAR) 100 units/mL injection (pen) Inject 75 Units under the s kin nightly. Historical Provider, lisinopril (PRINIVIL, ZESTRIL) 10 mg tablet Take 10 mg by mouth Daily. Historical Gaetano nolasco MD metaxalone (SKELAXIN) 800 mg tablet Take 800 mg by mouth 4 times daily. Historical Provi edmondMD montelukast (SINGULAIR) 10 mg tablet Take 10 mg by mouth nightly. Historical Provider, Wilver Lopez NOVOLOG FLEXPEN 100 UNIT/ML injection pen 04/22/18 Historical Provider, NOVOLOG MIX 70/30 FLEXPEN (70-30) 100 UNIT/ML PEN 01/29/19 Historical Provider, olopatadine (PATANOL) 0.1% ophthalmic solution Place 1 drop into both eyes 2 times daily. Historical Provider, SYMBICORT 160-4.5 MCG/ACT inhaler Take 160 mcg by mouth 2 times daily. 12/06/18 Historical ProviderMD TRUE METRIX BLOOD GLUCOSE TEST strip 04/22/18 Historical ProviderMD TRUEPLUS LANCETS 28G MISC 02/25/18 Historical ProviderMD ULTICARE ALCOHOL SWABS 70 % PADS 04/22/18 Historical Provider, Family History Problem Relation Age of Onset Diabetes Mother Diabetes Father Hypertension Father Diabetes Brother High blood pressure Brother Diabetes Paternal Grandfather High blood pressure Paternal Grandfather Social History Socioeconomic History Marital status: Spouse name: CATHI OMALLEY Number of children: 4 Years of education: Not on file Highest education level: Not on file Occupational History Employer: [employer] Social Needs Financial resource strain: Not on [...] file Gets together: Not on file Attends church service: Not on file Active member of [...] file Social History Narrative Not on file PHYSICAL EXAM Vital Signs: BP 127/78 | Pulse 99 | SpO2 97% Physical Exam Palpable pedal pulses. Capillary refill time intact. Light touch grossly intact. Rectus foot position. Ankle dorsiflexion within normal limits. Digital hair noted to the bilatera l foot. Varus attitude of the left great toe with adduction of the second and third toes. No drainage or oozing or malodor. No streaking. Varus deformity is flexible. PROBLEM LIST Encounter Diagnosis Name Primary? Left foot pain Yes Assessment ASSESSMENT & PLAN Hallux varus left great toe status post bunionectomy x1 year. Short and long-term goals gi jagdeep. Risks and benefits discussed. Lengthy discussion with the patient regarding treatment options and possible varus correction with soft tissue correction versus arthrodesis with c apsulotomies of the second and third toes. Risks and benefits discussed. All questions ans wered. Patient to thoughtfully consider treatment options. Diabetic foot education given. Follow-up PRN Primary Care Physician: DO Davon To DPM 04/04/2019 docum ented in this encounter Plan of Treatment Not on filedocumented as of this encounter Results XR Foot Left 3 [...] signed by: Davon Smith, | | | YVONNE 04/02/2019 9:03 AM | | |the first [...] + | Diagnosis | + + | Varus deformity of great toe, unspecified laterality - Primary | + + | Left foot pain Pain in limb | + + | Type 2 diabetes mellitus without complication, unspecified whether intermediate manager insulin | | use (HCC) | + + documented in this encounter"
--- OUTSIDE RECORDS SUMMARY | ~2019-10-15 | XMS | Encounter Summary ---
Demographics + + + | Address | [address] | | | [place] [address] | + + + | Home Phone | | + + + | Preferred Language | Unknown | + + + | Marital Status | | + + + | Amish Affiliation | 1041 | + + + | Race | Unknown | + + + | Ethnic Group | Unknown | + + + Author + + + | Author | [facility] | | | and Esteban | + + + | Organization | [facility] | | | [...] Team Providers + +------+ + | Care Command And Control Officer Name | Role | Phone | + +------+ + | Alejandro Yen DO | PCP | | + +------+ + Encounter Details +--------+ + + + + | Date | Type | Department | Care Team | Description | +--------+ + + + + | 10/15/ | Abstract | [facility] [place] | Moises Spivey, | | | 2017 | | PHYSIATRY [address] | MD [address] | | | | | [address] | [place] | | | | | [place] | [address] | | | | | [address] | | | | | | [phone] | | | +--------+ + + + [...]
== END ==
LOC: ED 10:07
DX: L03.116 Cellulitis of left lower limb (principal); G43.909 Migraine, unspecified, not intractable, without status migrainosus; I10 Essential (primary) hypertension; E11.9 Type 2 diabetes mellitus without complications; Z91.040 Latex allergy status; Z88.2 Allergy status to sulfonamides; Z88.1 Allergy status to other antibiotic agents; Z88.0 Allergy status to penicillin; Z88.5 Allergy status to narcotic agent; Z88.8 Allergy status to other drugs, medicaments and biological substances; Z79.899 Other long term (current) drug therapy; Z79.4 Long term (current) use of insulin
CPT/HCPCS: 99283

== ENCOUNTER 2020-01-18 18:37 | Emergency (ER) | payer BC, OTHER ==
[~2020-01-18] VITALS: Ht 167.6 cm; Wt 105.2 kg
[2020-01-18] MEDS ORDERED: ORAJEL 3X MOUT5.1 GM MM (18:54)
[2020-01-18] MEDS ORDERED: AZITHROMYCIN250 MG PO (18:54)
== END 2020-01-18 19:23 | disposition home or self-care (01) ==
LOC: ED 18:37
DX: J32.9 Chronic sinusitis, unspecified (principal); J02.9 Acute pharyngitis, unspecified; I10 Essential (primary) hypertension; E11.9 Type 2 diabetes mellitus without complications; G43.909 Migraine, unspecified, not intractable, without status migrainosus; Z91.040 Latex allergy status; Z88.2 Allergy status to sulfonamides; Z88.1 Allergy status to other antibiotic agents; Z88.0 Allergy status to penicillin; Z88.8 Allergy status to other drugs, medicaments and biological substances; Z88.5 Allergy status to narcotic agent; Z79.899 Other long term (current) drug therapy; Z79.4 Long term (current) use of insulin
CPT/HCPCS: 99283

== ENCOUNTER 2020-05-30 18:43 | Emergency (ER) | payer BC, OTHER ==
[~2020-05-30] VITALS: Ht 167.6 cm; Wt 105.3 kg
[~2020-05-30 18:43] MED LIST changes: +AZITHROMYCIN250 MG PO; +ORAJEL 3X MOUT5.1 GM MM
[2020-05-30] MEDS ORDERED: PROMETHAZINE HC25 M1 PO (23:21)
--- NOTE | 2020-05-31 13:36 | EKG ---
[facility] [address] [facility] [place] [address] Signed Sinus tachycardia Right superior axis deviation Abnormal ECG When compared with ECG of 08-JUL-2018 12:02, Questionable change in QRS axis Confirmed by RICHIE SPENCER MD ([id number]) on 05/31/2020 1:35:58 PM Electronically Signed By: RICHIE SPENCER MD 05/31/20 1336 PATIENT NAME: GUS SHRESTHA Electrocardiogram DATE OF : 69 PHYSICIAN: RICHIE SPENCER MD REPORT #: [id number] REPORT IS CONFIDENTIAL AND NOT TO BE RELEASED WITHOUT AUTHORIZATION
== END 2020-05-30 23:30 | disposition home or self-care (01) ==
LOC: ED 18:43
DX: U07.1 COVID-19 (principal); I10 Essential (primary) hypertension; E11.9 Type 2 diabetes mellitus without complications; Z88.2 Allergy status to sulfonamides; Z91.040 Latex allergy status; Z88.0 Allergy status to penicillin; Z88.1 Allergy status to other antibiotic agents; Z88.5 Allergy status to narcotic agent; Z79.899 Other long term (current) drug therapy; Z79.4 Long term (current) use of insulin
CPT/HCPCS: 71045; 80053; 83605; 85025; 93005; 93010; 96374; 96375; 99285-25; J1885; J2550; J7030; J7050; M0239

== ENCOUNTER 2020-09-07 18:31 | Emergency (ER) | payer BC, OTHER ==
[~2020-09-07] VITALS: Ht 167.6 cm; Wt 105.3 kg
[2020-09-07] MEDS ORDERED: OLOPATADINE HCL5 ML OD (18:50)
[2020-09-07] MEDS ORDERED: PROAIR HFA8.5 GM INH (18:50)
[2020-09-07] MEDS ORDERED: ALBUTEROL2.5 MG/3 M INH (18:51)
--- NOTE | 2020-09-07 22:43 | EKG ---
[facility] [address] [place] [address] Signed Normal sinus rhythm Left axis deviation Abnormal ECG When compared with ECG of 30-MAY-2020 19:35, No significant change was found Confirmed by KJ VELOZ MD ([id number]) on 09/07/2020 10:43:05 PM Electronically Signed By: KJ VELOZ MD 09/07/20 2243 PATIENT NAME: GUS SHRESTHA Electrocardiogram DATE OF : 69 PHYSICIAN: KJ VELOZ MD REPORT #: [id number] REPORT IS CONFIDENTIAL AND NOT TO BE RELEASED WITHOUT AUTHORIZATION
== END 2020-09-07 21:20 | disposition home or self-care (01) ==
LOC: ED 18:31
DX: U07.1 COVID-19 (principal); G43.909 Migraine, unspecified, not intractable, without status migrainosus; I10 Essential (primary) hypertension; E11.9 Type 2 diabetes mellitus without complications; Z87.891 Personal history of nicotine dependence; Z91.040 Latex allergy status; Z88.2 Allergy status to sulfonamides; Z88.1 Allergy status to other antibiotic agents; Z88.5 Allergy status to narcotic agent; Z88.8 Allergy status to other drugs, medicaments and biological substances; Z79.899 Other long term (current) drug therapy; Z79.4 Long term (current) use of insulin
CPT/HCPCS: 71045; 80053; 81001; 83735; 84484; 85025; 93005; 93010; 99285-25

== ENCOUNTER 2020-09-11 11:01 | Emergency (ER) | payer BC, OTHER ==
[~2020-09-11] VITALS: Ht 167.6 cm; Wt 109.8 kg
[~2020-09-11 11:01] MED LIST changes: +ALBUTEROL2.5 MG/3 M INH; +OLOPATADINE HCL5 ML OD; +PROAIR HFA8.5 GM INH
--- OUTSIDE RECORDS SUMMARY | 2020-09-11 11:04 | XMS ---
PreManage Notification: GUS SHRESTHA Security Tier Over Events No recent Security Events currently on file CRITERIA MET - [facility] - 2 Visits in 30 Days CARE PROVIDERS There are no care providers on record at this time. Donnell has no Care Guidelines for this patient. [facility] MO.) [facility] T[facility] NOTE: Visits indicate total known visits. ED/UCC VISIT TRACKING (12 MO.) [facility] [place] [facility] COMPLAINT: - RECTAL BLEEDING 09/07/2020 18:32 [facility] [place] TYPE: Emergency COMPLAINT: - WEAKNESS DIAGNOSES: - Allergy status to other drugs, medicaments and biological substances - Allergy status to other antibiotic agents - Personal history of nicotine dependence - Type 2 diabetes mellitus without complications - Other chcf (current) drug therapy - Allergy status to narcotic agent - Latex allergy status - Essential (primary) hypertension - Migraine, unspecified, not intractable, without status migrainosus - Weakness - terminal computer operator (current) use of insulin - Allergy status to sulfonamides - COVID-19 05/30/2020 18:43 [facility] [place] TYPE: Emergency COMPLAINT: - SOB DIAGNOSES: - Latex allergy status - Essential (primary) hypertension - Cough - Type 2 diabetes mellitus without complications - Other predatory animal exterminator (current) drug therapy - terminal computer operator (current) use of insulin - Allergy status to narcotic agent - COVID-19 - Allergy status to other antibiotic agents - Allergy status to penicillin - Allergy status to sulfonamides 01/18/2020 18:37 [facility] [place] TYPE: Emergency COMPLAINT: - ORAL BLEEDING/COUGH DIAGNOSES: - Allergy status to penicillin - Allergy status to other antibiotic agents - Cough - Chronic sinusitis, unspecified - Type 2 diabetes mellitus without complications - Acute pharyngitis, unspecified - Essential (primary) hypertension - Allergy status to other drugs, medicaments and biological substances - Other chcf (current) drug therapy - snf (current) use of insulin - Allergy status to sulfonamides - Latex allergy status - Migraine, unspecified, not intractable, without status migrainosus - Allergy status to narcotic agent 10/15/2019 10:08 [facility] [place] TYPE: Emergency COMPLAINT: - L ANKLE WOUND DIAGNOSES: - Migraine, unspecified, not intractable, without status migrainosus - Allergy status to penicillin - Pain in left ankle and joints of left foot - Type 2 diabetes mellitus without complications - Allergy status to other antibiotic agents - Allergy status to other drugs, medicaments and biological substances - Allergy status to narcotic agent - Other predatory animal exterminator (current) drug therapy - Latex allergy status - Essential (primary) hypertension - terminal computer operator (current) use of insulin - Cellulitis of left lower limb - Allergy status to sulfonamides INPATIENT VISIT TRACKING (12 MO.) No inpatient visits to display in this time frame [id number]
== END 2020-09-11 12:00 | disposition home or self-care (01) ==
LOC: ED 11:01
DX: K64.8 Other hemorrhoids (principal); I10 Essential (primary) hypertension; G43.909 Migraine, unspecified, not intractable, without status migrainosus; E11.9 Type 2 diabetes mellitus without complications; Z91.040 Latex allergy status; Z88.2 Allergy status to sulfonamides; Z88.1 Allergy status to other antibiotic agents; Z88.0 Allergy status to penicillin; Z88.8 Allergy status to other drugs, medicaments and biological substances; Z79.899 Other long term (current) drug therapy; Z79.4 Long term (current) use of insulin; Z86.16 Personal history of COVID-19
CPT/HCPCS: 99282

== ENCOUNTER 2021-07-03 11:14 | Emergency (ER) | payer BC, OTHER ==
[~2021-07-03] VITALS: Ht 167.6 cm; Wt 109.8 kg
[2021-07-03] MEDS ORDERED: ZITHROMAX250 MG PO (12:08)
== END 2021-07-03 12:17 | disposition home or self-care (01) ==
LOC: ED 11:14
DX: E11.65 Type 2 diabetes mellitus with hyperglycemia (principal); J32.9 Chronic sinusitis, unspecified; G43.909 Migraine, unspecified, not intractable, without status migrainosus; I10 Essential (primary) hypertension; E11.9 Type 2 diabetes mellitus without complications; Z86.16 Personal history of COVID-19; Z91.040 Latex allergy status; Z88.2 Allergy status to sulfonamides; Z88.0 Allergy status to penicillin; Z88.5 Allergy status to narcotic agent; Z88.1 Allergy status to other antibiotic agents; Z88.8 Allergy status to other drugs, medicaments and biological substances; Z79.899 Other long term (current) drug therapy; Z79.4 Long term (current) use of insulin; Z79.51 Long term (current) use of inhaled steroids
CPT/HCPCS: 81001; 99283

== ENCOUNTER 2022-06-04 11:12 | Emergency (ER) | payer BC, OTHER ==
[~2022-06-04] VITALS: Ht 167.6 cm; Wt 109.8 kg
[2022-06-04] MEDS ORDERED: ZITHROMAX250 MG PO (14:24)
== END 2022-06-04 14:32 | disposition home or self-care (01) ==
LOC: ED 11:12
DX: J20.8 Acute bronchitis due to other specified organisms (principal); Z20.822 Contact with and (suspected) exposure to COVID-19; G43.909 Migraine, unspecified, not intractable, without status migrainosus; I10 Essential (primary) hypertension; E11.9 Type 2 diabetes mellitus without complications; Z91.040 Latex allergy status; Z88.2 Allergy status to sulfonamides; Z88.1 Allergy status to other antibiotic agents; Z88.0 Allergy status to penicillin; Z88.5 Allergy status to narcotic agent; Z79.899 Other long term (current) drug therapy; Z79.4 Long term (current) use of insulin
CPT/HCPCS: 87502; 99283; U0003

== ENCOUNTER 2022-12-06 23:15 | Emergency (ER) | payer BC, OTHER ==
[~2022-12-06] VITALS: Ht 167.6 cm; Wt 100.0 kg
--- OUTSIDE RECORDS SUMMARY | ~2022-12-06 | XMS | Continuity of Care Document ---
Demographics + + + | Address | [address] | | | [place] [address] | + + + | Preferred Language | Unknown | + + + | Marital Status | | + + + | Christianity Affiliation | Unknown | + + + | Race | or | + + + | Ethnic Group | Not or | + + + Author + + + | Author | [facility] | + + + | Organization | [facility] | + + + | Address | [address] | | | [place] [address] | + + + | Phone | | + + + Care Team Providers + + + + | Care Clerk General Name | Role | Phone | + + + + Unavailable | Unavailable | + + + + Unavailable | Unavailable | + + + + Allergies and Intolerances + + + + + + | date | description | facility | reaction | severity | + + + + + + | (no date) | Ondansetron | [facility] | (no reaction) | (no severity) | | [facility] | | | + + + + + + | (no date) | Latex | [facility] | (no reaction) | (no severity) | | | [facility] | | | + + + + + + | (no date) | Urticaria | [facility] | (no reaction) | (no severity) | | | [facility] | | | + + + + + + | (no date) | Latex | [facility] | (no reaction) | (no severity) | | | [facility] | | | + + + + + + | (no date) | Cephalexin | [facility] | (no reaction) | (no severity) | | | [facility] | | | + + + + + + | (no date) | Ondansetron | [facility] | (no reaction) | (no severity) | | | [facility] | | | + + + + + + | (no date) | Codeine | [facility] | (no reaction) | (no severity) | | | [facility] | | | + + + + + + | (no date) | Rash | [facility] | (no reaction) | (no severity) | | | [facility] | | | + + + + + + | (no date) | Latex | [facility] | (no reaction) | (no severity) | | | [facility] | | | + + + + + + | (no date) | Cephalexin | [facility] | (no reaction) | (no severity) | | | [facility] | | | + + + + + + | (no date) | Codeine | [facility] | (no reaction) | (no severity) | | | [facility] | | | + + + + + + | (no date) | Vomiting | [facility] | (no reaction) | (no severity) | | | [facility] | | | + + + + + + | (no date) | Ondansetron | [facility] | (no reaction) | (no severity) | | | [facility] | | | + + + + + + | (no date) | Penicillin | [facility] | (no reaction) | (no severity) | | | [facility] | | | + + + + + + | (no date) | Penicillin | [facility] | (no reaction) | (no severity) | | | [facility] | | | + + + + + + | (no date) | Latex | [facility] | (no reaction) | (no severity) | | | [facility] | | | + + + + + + | (no date) | Penicillin | [facility] | (no reaction) | (no severity) | | | [facility] | | | + + + + + + | (no date) | Cephalexin | [facility] | (no reaction) | (no severity) | | | [facility] | | | + + + + + + | (no date) | Penicillin | [facility] | (no reaction) | (no severity) | | | [facility] | | | + + + + + + | (no date) | Codeine | [facility] | (no reaction) | (no severity) | | | [facility] | | | + + + + + + Encounters No information. Functional Status No information. Immunizations + + + + | date | description | facility | + + + + | 2015-09-12 00:00 | DTaP | [facility] | + + + + Medications + + + + | date | description | facility | + + + + | 2022-06-04 00:00 | Olopatadine HCl | [facility] | + + + + | 2022-06-04 00:00 | OLOPATADINE HCL 0.1% | [facility] | + + + + | 2022-06-04 00:00 | BUDESONIDE/FORMOTEROL | [facility] | | | FUMARATE | | + + + + | 2022-06-04 00:00 | ALBUTEROL SULFATE | [facility] | + + + + | 2022-06-04 00:00 | MONTELUKAST SODIUM | [facility] | + + + + | 2022-06-04 00:00 | INSULIN ASPART | [facility] | + + + + | 2022-06-04 00:00 | FLUTICASONE PROPIONATE 50 | [facility] | | | MCG | | + + + + | 2022-06-04 00:00 | FLUTICASONE PROPIONATE | [facility] | + + + + | 2022-06-04 00:00 | MONTELUKAST SODIUM | [facility] | + + + + | 2017-07-04 00:00 | LEVOFLOXACIN | [facility] | + + + + | 2022-06-04 00:00 | Calcium Carbonate/Vitamin | [facility] | | | D3 | | + + + + | 2018-11-10 00:00 | AZITHROMYCIN | [facility] | + + + + | 2021-07-03 00:00 | AZITHROMYCIN | [facility] | + + + + | 2022-06-04 00:00 | AZITHROMYCIN | [facility] | + + + + | 2022-06-04 00:00 | CELECOXIB | [facility] | + + + + | 2020-01-18 00:00 | Benzocaine/Menthol/Zinc | [facility] | | | Chlor | | + + + + | 2017-07-04 00:00 | OSELTAMIVIR PHOSPHATE | [facility] | + + + + | 2022-06-04 00:00 | INSULIN GLARGINE | [facility] | + + + + | 2019-10-15 00:00 | AZITHROMYCIN | [facility] | + + + + | 2020-01-18 00:00 | AZITHROMYCIN | [facility] | + + + + | 2022-06-04 00:00 | LISINOPRIL | [facility] | + + + + | 2022-06-04 00:00 | ALBUTEROL SULFATE | [facility] | + + + + | 2022-06-04 00:00 | CHOLECALCIFEROL (VITAMIN | [facility] | | | D3) | | + + + + | 2022-06-04 00:00 | ALBUTEROL SULFATE | [facility] | + + + + | 2018-07-20 00:00 | CLINDAMYCIN HCL | [facility] | + + + + | 2022-06-04 00:00 | INSULIN | [facility] | | | HUM. BRIGITTERECIzabelANLOG | | + + + + | 2013-12-21 00:00 | HYDROCODONE | [facility] | | | BIT/ACETAMINOPHEN | | + + + + | 2022-06-04 00:00 | SITAGLIPTIN PHOS/METFORMIN | [facility] | | | HCL | | + + + + | 2017-07-04 00:00 | ONDANSETRON | [facility] | + + + + | 2013-12-21 00:00 | ONDANSETRON | [facility] | + + + + | 2020-05-30 00:00 | PROMETHAZINE HCL | [facility] | + + + + | 2017-07-04 00:00 | PROMETHAZINE HCL | [facility] | + + + + | 2022-06-04 00:00 | FEXOFENADINE HCL | [facility] | + + + + Problems + + + + | date | description | facility | + + + + | 2013-12-21 00:00 | Acute gastroenteritis | [facility] | + + + + | 2013-12-21 00:00 | Gastroenteritis | [facility] | + + + + | 2013-12-21 00:00 | Tachycardia | [facility] | + + + + | 2015-09-12 00:00 | Ingrown nail of great toe | [facility] | | | of left foot | | + + + + | 2016-05-05 00:00 | Hypoglycemic reaction to | [facility] | | | insulin | | + + + + | 2017-07-04 00:00 | Acute bacterial | [facility] | | | tonsillitis | | + + + + | 2017-07-04 00:00 | Influenza | [facility] | + + + + | 2018-05-07 00:00 | Generalized headache | [facility] | + + + + | 2018-05-08 00:00 | Migraine headache | [facility] | + + + + | 2018-07-20 00:00 | Local infection of wound | [facility] | + + + + | 2018-11-10 00:00 | Sinusitis | [facility] | + + + + | 2019-01-10 00:00 | Upper respiratory tract | [facility] | | | infection | | + + + + | 2019-10-15 00:00 | Cellulitis | [facility] | + + + + | 2020-01-18 00:00 | Pharyngitis | [facility] | + + + + | 2020-05-30 00:00 | Infection due to severe | [facility] | | | acute respiratory syndrome | | | | coronavirus 2 (SARS-CoV-2) | | + + + + | 2020-09-07 00:00 | Post-acute COVID-19 | [facility] | | | syndrome | | + + + + | 2020-09-11 00:00 | Bleeding internal | [facility] | | | hemorrhoids | | + + + + | 2021-07-03 00:00 | Poorly controlled diabetes | [facility] | | | mellitus | | + + + + | 2022-06-04 00:00 | Acute bacterial bronchitis | [facility] | | | | | + + + + Procedures No information. Results/Labs +--------+--------+ +---------+--------+---------+ | test | date | facility | value | unit | notes | +--------+--------+ +---------+--------+---------+ + + | Result panel 1 | + + + + + + + + + | | 2022-06-04 | [facility] | NEGATIVE | (missing) | (missing) | | (unavailable | 11:30:08 | [place] | | | | [facility] ) [facility] | | | | + + + + + + + + + | Result panel 2 | + + + + + + + + + | | 2022-06-04 | [facility] | NEGATIVE | (missing) | (missing) | | (unavailable | 11:30:08 | [facility] | | | | + + + + + + + + + | Result panel 3 | + + + + + + + + + | | 2022-06-04 | [facility] | NEGATIVE | (missing) | (missing) | | (unavailable | 11:30:08 | [facility] | | | | + + + + + + + + + | Result panel 4 | + + + + + + + + + | | 2022-06-04 | [facility] | NEGATIVE | (missing) | (missing) | | (unavailable | 11:30:08 | [facility] | | | | + + + + + + + Social History No information. Vital Signs + + + +---------+ | date | measurement | value | units | + + + +---------+ | 2022-06-04 00:00 | BMI | 39.1 | kg/m2 | + + + +---------+ | 2022-06-04 00:00 | BP_diastolic | 71 | mmHg | + + + +---------+ | 2022-06-04 00:00 | BP_systolic | 143 | mmHg | + + + +---------+ | 2022-06-04 00:00 | heart_rate | 100 | /min | + + + +---------+ | 2022-06-04 00:00 | height_metric | 167.64 | cm | + + + +---------+ | 2022-06-04 00:00 | height_standard | 66 | in | + + + +---------+ | 2022-06-04 00:00 | o2_saturation | 98 | % | + + + +---------+ | 2022-06-04 00:00 | respiration_rate | 17 | /min | + + + +---------+ | 2022-06-04 00:00 | temperature_metric | 37.17 | C | | | | | | + + + +---------+ | 2022-06-04 00:00 | | 98.9 | F | | | temperature_standar | | | | | d | | | + + + +---------+ | 2022-06-04 00:00 | weight_metric | 109.77 | kg | + + + +---------+ | 2022-06-04 00:00 | weight_standard | 242 | lb | + + + +---------+"
--- OUTSIDE RECORDS SUMMARY | ~2022-12-06 | XMS | Continuity of Care Document ---
Demographics + + + | Address | [address] | | | [place] [address] | + + + | Preferred Language | Unknown | + + + | Marital Status | | + + + | Faith Affiliation | Unknown | + + + | Race | or | + + + | Ethnic Group | Not or | + + + Author + + + | Author | [facility] | + + + | Organization | [facility] | + + + | Address | [address] | | | [place] [address] | + + + | Phone | | + + + Care Team Providers + + + + | Care Learning Operations Specialist Name | Role | Phone | [...] + | 2015-09-12 00:00 | DTaP | [facility] | + + + + Medications + + + + | date | description | facility | + + + + | 2022-06-04 00:00 | Olopatadine HCl | [facility] | + + + + | 2022-06-04 00:00 | OLOPATADINE HCL 0.1% | [facility] | + + + + | 2022-06-04 00:00 | BUDESONIDE/FORMOTEROL | [facility] | | | FUMARATE | | + + + + | 2022-06-04 00:00 | ALBUTEROL SULFATE | [facility] | + + + + | 2022-06-04 00:00 | MONTELUKAST SODIUM | [facility] | + + + + | 2022-06-04 00:00 | INSULIN ASPART | [facility] | + + + + | 2022-06-04 00:00 | FLUTICASONE PROPIONATE 50 | [facility] | | | MCG | | + + + + | 2022-06-04 00:00 | FLUTICASONE PROPIONATE | [facility] | + + + + | 2022-06-04 00:00 | MONTELUKAST SODIUM | [facility] | + + + + | 2017-07-04 00:00 | LEVOFLOXACIN | [facility] | + + + + | 2022-06-04 00:00 | Calcium Carbonate/Vitamin | [facility] | | | D3 | | + + + + | 2018-11-10 00:00 | AZITHROMYCIN | [facility] | + + + + | 2021-07-03 00:00 | AZITHROMYCIN | [facility] | + + + + | 2022-06-04 00:00 | AZITHROMYCIN | [facility] | + + + + | 2022-06-04 00:00 | CELECOXIB | [facility] | + + + + | 2020-01-18 00:00 | Benzocaine/Menthol/Zinc | [facility] | | | Chlor | | + + + + | 2017-07-04 00:00 | OSELTAMIVIR PHOSPHATE | [facility] | + + + + | 2022-06-04 00:00 | INSULIN GLARGINE | [facility] | + + + + | 2019-10-15 00:00 | AZITHROMYCIN | [facility] | + + + + | 2020-01-18 00:00 | AZITHROMYCIN | [facility] | + + + + | 2022-06-04 00:00 | LISINOPRIL | [facility] | + + + + | 2022-06-04 00:00 | ALBUTEROL SULFATE | [facility] | + + + + | 2022-06-04 00:00 | CHOLECALCIFEROL (VITAMIN | [facility] | | | D3) | | + + + + | 2022-06-04 00:00 | ALBUTEROL SULFATE | [facility] | + + + + | 2018-07-20 00:00 | CLINDAMYCIN HCL | [facility] | + + + + | 2022-06-04 00:00 | INSULIN | [facility] | | | HUM. BRIGITTERECIzabelANLOG | | + + + + | 2013-12-21 00:00 | HYDROCODONE | [facility] | | | BIT/ACETAMINOPHEN | | + + + + | 2022-06-04 00:00 | SITAGLIPTIN PHOS/METFORMIN | [facility] | | | HCL | | + + + + | 2017-07-04 00:00 | ONDANSETRON | [facility] | + + + + | 2013-12-21 00:00 | ONDANSETRON | [facility] | + + + + | 2020-05-30 00:00 | PROMETHAZINE HCL | [facility] | + + + + | 2017-07-04 00:00 | PROMETHAZINE HCL | [facility] | + + + + | 2022-06-04 00:00 | FEXOFENADINE HCL | [facility] | + + + + Problems + + + + | date | description | facility | + + + + | 2013-12-21 00:00 | Acute gastroenteritis | [facility] | + + + + | 2013-12-21 00:00 | Gastroenteritis | [facility] | + + + + | 2013-12-21 00:00 | Tachycardia | [facility] | + + + + | 2015-09-12 00:00 | Ingrown nail of great toe | [facility] | | | of left foot | | + + + + | 2016-05-05 00:00 | Hypoglycemic reaction to | [facility] | | | insulin | | + + + + | 2017-07-04 00:00 | Acute bacterial | [facility] | | | tonsillitis | | + + + + | 2017-07-04 00:00 | Influenza | [facility] | + + + + | 2018-05-07 00:00 | Generalized headache | [facility] | + + + + | 2018-05-08 00:00 | Migraine headache | [facility] | + + + + | 2018-07-20 00:00 | Local infection of wound | [facility] | + + + + | 2018-11-10 00:00 | Sinusitis | [facility] | + + + + | 2019-01-10 00:00 | Upper respiratory tract | [facility] | | | infection | | + + + + | 2019-10-15 00:00 | Cellulitis | [facility] | + + + + | 2020-01-18 00:00 | Pharyngitis | [facility] | + + + + | 2020-05-30 00:00 | Infection due to severe | [facility] | | | acute respiratory syndrome | | | | coronavirus 2 (SARS-CoV-2) | | + + + + | 2020-09-07 00:00 | Post-acute COVID-19 | [facility] | | | syndrome | | + + + + | 2020-09-11 00:00 | Bleeding internal | [facility] | | | hemorrhoids | | + + + + | 2021-07-03 00:00 | Poorly controlled diabetes | [facility] | | | mellitus | | + + + + | 2022-06-04 00:00 | Acute bacterial bronchitis | [facility] | | | | | + + + + Procedures No information. Results/Labs +--------+--------+ +---------+--------+---------+ | test | date | facility | value | unit | notes | +--------+--------+ +---------+--------+---------+ + + | Result panel 1 | + + + + + + + + + | | 2022-06-04 | [facility] | NEGATIVE | (missing) | (missing) | | (unavailable | 11:30:08 | [place] | | | | | ) | [...]
[2022-12-06] MEDS ORDERED: PAXLOVID 300-11 EACH PO (23:38)
[2022-12-07 00:12] VITALS: BP 145/77
== END 2022-12-07 00:10 | disposition home or self-care (01) ==
LOC: ED 23:15
DX: U07.1 COVID-19 (principal); Z79.4 Long term (current) use of insulin; Z79.51 Long term (current) use of inhaled steroids; Z79.899 Other long term (current) drug therapy; Z88.2 Allergy status to sulfonamides; Z88.0 Allergy status to penicillin; Z88.5 Allergy status to narcotic agent; Z91.040 Latex allergy status; E11.9 Type 2 diabetes mellitus without complications; I10 Essential (primary) hypertension; G43.909 Migraine, unspecified, not intractable, without status migrainosus
CPT/HCPCS: 99282

== ENCOUNTER 2023-06-12 15:55 | Emergency (ER) | payer BC, OTHER ==
[~2023-06-12] VITALS: Ht 167.6 cm; Wt 94.8 kg
[~2023-06-12 15:55] MED LIST changes: +PAXLOVID 300-11 EACH PO
[2023-06-12] MEDS ORDERED: SODIUM CHLORIDE 0.9% 1,000 ML IV ONE (16:30)
[2023-06-12 16:31] LABS: BASOPHILS 0.2 % (0-2); EOSINOPHILS 1.2 % (0-6); HEMOGLOBIN 15.5 g/dL (12.0-18.0); LYMPHOCYTES 9.4 % (24-44); MCH 28.1 (27-36); MCHC 33.6 g/dl (30-36); MCV 83.7 fl (81-99); MONOCYTES 2.8 % (0-12); NEUTROPHILS 86.4 % (39-80); PLATELET COUNT 322 K/uL (140-440); RBC 5.49 M/ul (4.3-5.7); RDW 13.9 (10.5-15.0)
[2023-06-12 17:11] LABS: INFLUENZA B NAA NEGATIVE (NEGATIVE); RESPIRATORY SYNCYTIAL VIR NAA NEGATIVE (NEGATIVE)
[2023-06-12 17:27] LABS: ALBUMIN 3.4 g/dL (3.4-5.0); ALBUMIN/GLOBULIN RATIO 0.77 (1.1-2.4); ANION GAP 13.8 (7-21); BILIRUBIN, TOTAL 1.1 ng/dL (0.2-1.0); BUN/CREATININE RATIO 13.33 (6.0-28.6); CALCIUM 9.3 mg/dL (8.5-10.1); CREATININE, SERUM 0.9 mg/dL (0.55-1.02); POTASSIUM 3.8 mmol/L (3.5-5.1); PROTEIN, TOTAL 7.8 g/dL (6.4-8.2)
[2023-06-12 18:12] LABS: BILIRUBIN, URINE NEGATIVE (negative); BLOOD/HGB, URINE NEGATIVE (Negative); KETONE, URINE NEGATIVE (Negative); LEUK ESTERASE, URINE NEGATIVE (negative); NITRITE, URINE NEGATIVE (negative); PH, URINE 5.5 (5-7)
[2023-06-12] MEDS ORDERED: ACETAMINOPHEN 500 MG TAB PO ONE (18:30)
[2023-06-12] MEDS ORDERED: OXYMETAZOLINE HCL 15 ML BTL NAS ONE (18:45)
[2023-06-12] MEDS ORDERED: AZITHROMYCIN 250 MG TAB PO ONE (18:45)
[2023-06-12 18:59] VITALS: BP 135/76
== END 2023-06-12 18:58 | disposition home or self-care (01) ==
LOC: ED 15:55
PROVIDERS: Emergency Medicine
DX: J32.9 Chronic sinusitis, unspecified (principal); E11.65 Type 2 diabetes mellitus with hyperglycemia; R35.0 Frequency of micturition; D72.829 Elevated white blood cell count, unspecified; Z79.4 Long term (current) use of insulin; I10 Essential (primary) hypertension; Z91.040 Latex allergy status; Z88.2 Allergy status to sulfonamides; Z88.1 Allergy status to other antibiotic agents; Z88.0 Allergy status to penicillin; Z88.5 Allergy status to narcotic agent; Z88.8 Allergy status to other drugs, medicaments and biological substances; Z79.899 Other long term (current) drug therapy; Z79.51 Long term (current) use of inhaled steroids
CPT/HCPCS: 36415; 80053; 81003; 85025; 87502; 96360; 99284-25; A9270; J7030; U0002

== ENCOUNTER 2023-12-25 15:05 | Emergency (ER) | payer BC, OTHER ==
[~2023-12-25] VITALS: Ht 167.6 cm; Wt 92.6 kg
[2023-12-25] MEDS ORDERED: KETOROLAC TROMETHAMINE 15 MG/ML VIAL IV ONE (15:45)
[2023-12-25 15:48] LABS: BILIRUBIN, URINE NEGATIVE (negative); BLOOD/HGB, URINE TRACE-I (Negative); KETONE, URINE NEGATIVE (Negative); LEUK ESTERASE, URINE NEGATIVE (negative); NITRITE, URINE NEGATIVE (negative); PH, URINE 5.5 (5-7)
[2023-12-25 16:00] LABS: BASOPHILS 0.6 % (0-2); HEMOGLOBIN 14.6 g/dL (12.0-18.0); LYMPHOCYTES 24.9 % (24-44); MCH 27.8 (27-36); MCHC 33.3 g/dl (30-36); MCV 83.7 fl (81-99); MONOCYTES 3.7 % (0-12); NEUTROPHILS 69.8 % (39-80); PLATELET COUNT 337 K/uL (140-440); RBC 5.26 M/ul (4.3-5.7)
[2023-12-25 16:02] LABS: CRYSTALS, URINE NONE SEEN (0-1+); EPITHELIAL CELLS, URINE NONE SEEN /lpf (0-1+); RED BLOOD CELLS, URINE 0-1 /hpf (0-5)
[2023-12-25 16:03] LABS: BACTERIA, URINE NONE SEEN /hpf (negative); CASTS, URINE NONE SEEN \\lpf; COLLECTION TYPE, URINE CLEAN CATCH; REFLEX CULTURE, URINE Yes (No)
[2023-12-25] MEDS ORDERED: OZEMPIC2 MG/0.75 SUB-Q (16:06)
[2023-12-25] MEDS ORDERED: JARDIANCE10 MG PO (16:07)
[2023-12-25] MEDS ORDERED: XYZAL5 MG PO (16:08)
[2023-12-25] MEDS ORDERED: HUMALOG100 UNIT/2 SUB-Q (16:10)
[2023-12-25 16:15] LABS: ALBUMIN 3.7 g/dL (3.4-5.0); ALBUMIN/GLOBULIN RATIO 0.9 (1.1-2.4); ANION GAP 12.9 (7-21); BILIRUBIN, TOTAL 0.7 ng/dL (0.2-1.0); BUN/CREATININE RATIO 20.21 (6.0-28.6); CREATININE, SERUM 0.94 mg/dL (0.55-1.02); POTASSIUM 3.9 mmol/L (3.5-5.1); PROTEIN, TOTAL 7.8 g/dL (6.4-8.2)
[2023-12-25] MEDS ORDERED: SODIUM CHLORIDE 0.9% 1,000 ML IV ONE (16:15)
[2023-12-25] MEDS ORDERED: CEFTRIAXONE/SODIUM CHLORIDE 2 GM/100 ML PIGGYBACK IV ONE (18:45)
[2023-12-25] MEDS ORDERED: CEFDINIR300 MG PO (18:56)
[2023-12-25 19:55] VITALS: BP 122/77
[2023-12-25] MEDS ORDERED: TRAMADOL HCL 50 MG HOME.PACK PO ONE (20:00)
== END 2023-12-25 19:58 | disposition home or self-care (01) ==
LOC: ED 15:05
PROVIDERS: Emergency Medicine
DX: N39.0 Urinary tract infection, site not specified (principal); I10 Essential (primary) hypertension; E11.9 Type 2 diabetes mellitus without complications; Z86.16 Personal history of COVID-19; Z88.5 Allergy status to narcotic agent; Z88.0 Allergy status to penicillin; Z88.2 Allergy status to sulfonamides; Z88.8 Allergy status to other drugs, medicaments and biological substances; Z88.1 Allergy status to other antibiotic agents; Z91.040 Latex allergy status; Z79.4 Long term (current) use of insulin; Z79.899 Other long term (current) drug therapy
CPT/HCPCS: 36415; 74177; 80053; 81001; 85025; 87077; 87088; 87186; 96375; 99284-25; A9270; J0696; J1885; J7030; Q9967

== ENCOUNTER 2024-06-07 06:56 | Emergency (ER) | payer BC, OTHER ==
[~2024-06-07] VITALS: Ht 167.6 cm; Wt 90.3 kg
[2024-06-07] MEDS ORDERED: AZITHROMYCIN 250 MG TAB PO ONE (07:30)
[2024-06-07] MEDS ORDERED: OXYMETAZOLINE HCL 30 ML BTL NAS ONE (07:30)
[2024-06-07 07:58] VITALS: BP 136/111
== END 2024-06-07 07:58 | disposition home or self-care (01) ==
LOC: ED 06:56
DX: J32.9 Chronic sinusitis, unspecified (principal); I10 Essential (primary) hypertension; E11.9 Type 2 diabetes mellitus without complications; Z88.5 Allergy status to narcotic agent; Z88.0 Allergy status to penicillin; Z88.2 Allergy status to sulfonamides; Z88.1 Allergy status to other antibiotic agents; Z91.040 Latex allergy status; Z79.4 Long term (current) use of insulin; Z79.899 Other long term (current) drug therapy
CPT/HCPCS: 99283

== ENCOUNTER 2025-03-26 16:44 | Emergency (ER) | payer OTHER, BC ==
[~2025-03-26] VITALS: Ht 167.6 cm; Wt 93.4 kg
--- OUTSIDE RECORDS SUMMARY | ~2025-03-26 | XMS | Continuity of Care Document ---
Demographics + + + | Address | [address] | | | [place] [address] | + + + | Preferred Language | Unknown | + + + | Marital Status | | + + + | Nondenominational Affiliation | Unknown | + + + | Race | or | + + + | Ethnic Group | Not or | + + + Author + + + | Author | [facility] | + + + | Organization | [facility] | + + + | Address | [address] | | | [place] [address] | + + + | Phone | | + + + Care Team Providers + + + + | Care Junior Account Manager Name | Role | Phone | + + + + Unavailable | Unavailable | + + + + Allergies No information. Encounters No information. Functional Status No information. Immunizations No information. Medications + + + + | date | description | facility | + + + + | (no date) | Olopatadine HCl | [facility] | | | | [facility] | + + + + | (no date) | OLOPATADINE HCL 0.1% | [facility] | | | | [facility] | + + + + | (no date) | BUDESONIDE/FORMOTEROL | [facility] | | | FUMARATE | [facility] | + + + + | (no date) | ALBUTEROL SULFATE | [facility] | | | | [facility] | + + + + | (no date) | MONTELUKAST SODIUM | [facility] | | | | [facility] | + + + + | (no date) | EMPAGLIFLOZIN | [facility] | | | | [facility] | + + + + | (no date) | INSULIN LISPRO | [facility] | | | | [facility] | + + + + | (no date) | INSULIN ASPART | [facility] | | | | [facility] | + + + + | (no date) | FLUTICASONE PROPIONATE 50 | [facility] | | | MCG | [facility] | + + + + | (no date) | FLUTICASONE PROPIONATE | [facility] | | | | [facility] | + + + + | (no date) | MONTELUKAST SODIUM | [facility] | | | | [facility] | + + + + | (no date) | Calcium Carbonate/Vitamin | [facility] | | | D3 | [facility] | + + + + | (no date) | Semaglutide | [facility] | | | | [facility] | + + + + | (no date) | BENZONATATE | [facility] | | | | [facility] | + + + + | (no date) | INSULIN GLARGINE | [facility] | | | | [facility] | + + + + | (no date) | LISINOPRIL | [facility] | | | | [facility] | + + + + | (no date) | CHOLECALCIFEROL (VITAMIN | [facility] | | | D3) | [facility] | + + + + | (no date) | ALBUTEROL SULFATE | [facility] | | | | [facility] | + + + + | (no date) | INSULIN | [facility] | | | GLAHUM. TAMRECYONNYLOG | [facility] | + + + + | (no date) | LEVOCETIRIZINE | [facility] | | | DIHYDROCHLORIDE | [facility] | + + + + | (no date) | SITAGLIPTIN PHOS/METFORMIN | [facility] | | | HCL | [facility] | + + + + Problems No information. Procedures No information. Results/Labs No information. Social History +--------+ + + | date | description | facility | +--------+ + + Vital Signs No information."
[~2025-03-26 16:44] MED LIST changes: +BENZONATATE200 MG PO; +CEFDINIR300 MG PO; +HUMALOG100 UNIT/2 SUB-Q; +JARDIANCE10 MG PO; +OZEMPIC2 MG/0.75 SUB-Q; +XYZAL5 MG PO
[2025-03-26] MEDS ORDERED: diazePAM 10 MG/2 ML SYR IM ONE (19:30)
[2025-03-26] MEDS ORDERED: KETOROLAC TROMETHAMINE 60 MG/2 ML VIAL IM ONE (19:30)
[2025-03-26] MEDS ORDERED: CYCLOBENZAPRINE10 MG PO (20:14)
[2025-03-26] MEDS ORDERED: CELEBREX200 MG PO (20:14)
[2025-03-26 20:15] VITALS: BP 134/77
[2025-03-26] MEDS ORDERED: CYCLOBENZAPRINE HCL 10 MG HOME.PACK PO ONE (20:30)
== END 2025-03-26 20:43 | disposition home or self-care (01) ==
LOC: ED 16:44
DX: S83.91XA Sprain of unspecified site of right knee, initial encounter (principal); S83.92XA Sprain of unspecified site of left knee, initial encounter; S93.401A Sprain of unspecified ligament of right ankle, initial encounter; S70.01XA Contusion of right hip, initial encounter; G43.909 Migraine, unspecified, not intractable, without status migrainosus; I10 Essential (primary) hypertension; E11.9 Type 2 diabetes mellitus without complications; W01.0XXA Fall on same level from slipping, tripping and stumbling without subsequent striking against object, initial encounter; Z79.899 Other long term (current) drug therapy; Z79.52 Long term (current) use of systemic steroids; Z91.040 Latex allergy status; Z88.0 Allergy status to penicillin; Z88.1 Allergy status to other antibiotic agents; Z88.5 Allergy status to narcotic agent; Z88.8 Allergy status to other drugs, medicaments and biological substances
CPT/HCPCS: 73502; 73560; 73610; 96372; 99283; J1885